=== PATIENT | male | born 1945 | race Caucasian/White ===

== ENCOUNTER 2018-09-02 11:50 | Inpatient (IN) | payer OTHER ==
[~2018-09-02] VITALS: Ht 177.8 cm; Wt 86.2 kg
--- NOTE | ~2018-09-02 | EKG ---
[address] [address] ELECTROCARDIOGRAM REPORT Name: YOU DUFF Room #: 460-P ADM IN M.R.#: [id number] ������������������ Admission: 09/02/18 ������������������ Attend Phys: Sam Kent MD Discharge: ������������������ Date of : 41 Report #: [id number] ����������������������������������������������������������������� [id number] THIS REPORT FOR: //name// 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: Luis A CASAS : 1945 Requested By: Arlet Mead Order Number: [id number] MD: Measurements Intervals [place] Rate: 115 P: SD: QRS: -28 QRSD: 138 T: 47 QT: 367 QTc: 508 Interpretive Statements Atrial fibrillation Right bundle branch block Compared to ECG 09/02/2018 21:56:28 Sinus rhythm no longer present Myocardial infarct finding no longer present [email or web address] ��������������������������������������������� ���������������������������������������� By: ��������������������������������������������� 1637 1637 Epiphany EpiphanyMD /EPI
[2018-09-02 12:25] LABS: HEMATOCRIT 32.8 % (42.0-52.0); HEMOGLOBIN 11.2 gm/dL (14.0-18.0); MCH 33.7 pg (26.0-34.0); PLATELET COUNT 220 thou/uL (150-400); RBC 3.32 mil/uL (4.50-6.00); RDW 14.2 % (10.5-14.5); WBC 5.6 thou/uL (4.0-11.0)
[2018-09-02 12:30] LABS: CALCIUM 8.8 mg/dL (8.5-10.1)
[2018-09-02 12:36] LABS: ALBUMIN 3.4 g/dL (3.4-5.0); TOTAL BILIRUBIN 1.6 mg/dL (<0.1-1.0); TOTAL PROTEIN 7.3 g/dL (6.4-8.2)
[2018-09-02 12:38] LABS: APTT 46.9 Seconds (24.5-32.8); INR 1.7; PROTIME 17.7 Seconds (9.3-11.4)
[2018-09-02] MEDS ORDERED: ZETIA10 MG PO (12:40)
[2018-09-02] MEDS ORDERED: CARDIZEM CD120 MG PO (12:40)
[2018-09-02] MEDS ORDERED: ASPIRIN325 PO (12:41)
[2018-09-02] MEDS ORDERED: MOBIC7.5 MG PO (12:41)
[2018-09-02] MEDS ORDERED: XARELTO20 MG PO (12:42)
[2018-09-02] MEDS ORDERED: LIPITOR80 MG PO (12:42)
[2018-09-02] MEDS ORDERED: TOPROL XL25 MG PO (12:43)
[2018-09-02 12:55] LABS: ABSOLUTE NEUTROPHILS 2.8 thou/uL (1.4-8.2); ATYPICAL LYMPHS 2 %; NUCLEATED RBCS 1 /100WBC
[2018-09-02 12:56] LABS: ANISOCYTOSIS SLIGHT; LARGE PLATELETS OCCASIONAL
[2018-09-02 13:02] LABS: URINE BILIRUBIN NEGATIVE (Negative); URINE BLOOD TRACE (Negative); URINE CLARITY CLEAR; URINE COLOR YELLOW; URINE GLUCOSE-RANDOM* NEGATIVE (Negative); URINE KETONES NEGATIVE (Negative); URINE LEUKOCYTES-REFLEX NEGATIVE (Negative); URINE NITRITE-REFLEX NEGATIVE (Negative); URINE PROTEIN (DIPSTICK) TRACE (Negative)
[2018-09-02] MEDS ORDERED: FLOMAX0.4 MG PO (13:14)
[2018-09-02 13:15] LABS: MAGNESIUM 1.3 mg/dL (1.8-2.4); TROPONIN-I 0.08 ng/mL (<0.06)
--- NOTE | 2018-09-02 14:07 | EKG ---
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: SUSANA : 1945 Requested By: Jose Guadalupe Martinez Order Number: [id number] MD: Carlos Duarte Measurements Intervals [place] Rate: 85 P: 59 NV: 183 QRS: -54 QRSD: 139 T: 49 QT: 423 QTc: 503 Interpretive Statements Sinus rhythm Atrial premature complex left atrial enlargement RBBB and LAFB Non specific st/t wave changes No previous ECG available for comparison Electronically Signed On 09-02-2018 14:06:55 CDT by Carlos Duarte [email or web address] ��������������������������������������������� <ELECTRONICALLY SIGNED> ���������������������������������������� By: Carlos Duarte MD ��������������������������������������������� 09/02/18 1406 1318 1318 Carlos Duarte MD /EPI
[2018-09-02 14:24] VITALS: BP 93/67
[2018-09-02 14:26] VITALS: BP 94/63
[2018-09-02 16:59] LABS: HEMATOCRIT 26.9 % (42.0-52.0); HEMOGLOBIN 9.3 gm/dL (14.0-18.0)
--- NOTE | 2018-09-02 17:58 | NUR ---
PATIENT ADMIT TO UNIT AT 1500. A/O X4. PLEASANT. DENIES PAIN. NO N/V. NO BM NOTED. BP ON THE LOW SIDE. NO DISDRESS NOTED. WILL KEEP MPNITOR.
[2018-09-02 19:40] VITALS: BP 86/62
[2018-09-02 21:15] VITALS: BP 82/57
[2018-09-02 23:20] VITALS: BP 74/59
[2018-09-02 23:40] VITALS: BP 97/75
[2018-09-03] VITALS (32 sets, daily range): BP systolic 72–92; BP diastolic 42–63
[2018-09-03 00:17] LABS: HEMOGLOBIN 7.9 gm/dL (14.0-18.0)
--- NOTE | 2018-09-03 02:39 | NUR ---
NOTED PT BLOOD PRESSURE 80/60'S AND 80/50'S. UPON INITIAL ASSESSMENTS PT C/O PAIN IN RIBS, LEFT SIDE, IN THE AXILLARY REGION. PT DID STATE THE PAIN WAS EXACERBATED SLIGHTLY WILL PALPATION TO THAT AREA. DENIED ANY CHEST PAIN OR SOA AT THAT TIME. AT APPROXIMATELY 2145 PT STATED THAT HE WAS HAVING PAIN IN BETWEEN HIS SHOULDER BLADES, 6/10 AND "SHARP." NOTED PAST TROPONIN VALUES .08/0.9. PT DENIES ANY LEFT SIDED CHEST PAIN. PT DID STATE THAT HE FEELS THAT SHARP PAIN IS COMING THROUGH HIS BACK MOVING TOWARD THE FRONT. NOTED BLOOD PRESSURE 80/50'S AT THAT TIME, SR PER TELE. NO OTHER SX REPORTED BY PT, DID REPORT SOA WITH OBSERVABLE INCREASED WOB (RR 24 AND LABORED). O2 SAT WAS 100% AT THAT TIME AND SOA RESOLVED QUICKLY. O2 AT 2L STARTED. LUNGS CTA THROUGHOUT. SPOKE WITH SAFETY DEPOSIT BOXES CUSTODIAN, ORDERS RECEIVED. NOTED SBP 74 AND PT STATING HE FELT HE NEEDED TO HAVE BM BUT WAS UNWILLING TO USE BEDPAN. SAT UP AT THE SIDE OF THE BED. STARTED DYNAMAP TO ASSESS ANY POSSIBLE BP CHANGE, PT STATED HE FELT SUDDENLY DIZZY AND SLUMPED INTO THE BED. IMMEDIATELY PLACED IN BED. PULSE WAS PALPABLE. STERNAL RUB DONE WHICH DID RESULT IN PT TAKING A GASPING BREATH AFTERWORDS X2. PT THEN QUICKLY BEGAN TO HAVE REGULAR RESPIRATIONS AND VERBALLY RESPOND TO STAFF. POST THIS EVENT, HGB WAS 7.9. DID RECEIVE ORDER TO TRANSFUSE ONE UNIT OF BLOOD. AWAIT LAB STAFF RESOLUTION OF REPORTED ANTIBODIES. PT DENYING ANY FURTHER SOA. RATING BACK (BETWEEN SHOULDER BLADES) PAIN 2/10. SBP POST EVENT 98, TROP 0.10. SAFETY DEPOSIT BOXES CUSTODIAN AWARE OF EKG RESULTS, CXR, LAB RESULTS AND BP.
[2018-09-03 02:46] LABS: HEMATOCRIT 22.2 % (42.0-52.0); HEMOGLOBIN 7.7 gm/dL (14.0-18.0); MCHC 34.8 g/dL (28.0-37.0); MCV 100.7 fL (80.0-100.0); PLATELET COUNT 160 thou/uL (150-400); RBC 2.21 mil/uL (4.50-6.00); RDW 14.2 % (10.5-14.5); WBC 5.8 thou/uL (4.0-11.0)
[2018-09-03 02:52] LABS: CALCIUM 7.7 mg/dL (8.5-10.1); CREATININE 0.8 mg/dL (0.7-1.3); MAGNESIUM 1.8 mg/dL (1.8-2.4); POTASSIUM 3.9 mmol/L (3.5-5.1)
[2018-09-03 04:31] LABS: ABSOLUTE NEUTROPHILS 3.5 thou/uL (1.4-8.2); MYELOCYTES 1 %
[2018-09-03 05:30] LABS: LARGE PLATELETS OCCASIONAL
[2018-09-03 10:34] LABS: HEMATOCRIT 23.6 % (42.0-52.0); HEMOGLOBIN 8.1 gm/dL (14.0-18.0)
--- NOTE | 2018-09-03 10:59 | EKG ---
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: gus roque RN : 1945 Requested By: Kathy Barboza Order Number: [id number] MD: Weston Sommer Measurements Intervals [place] Rate: 84 P: 10 DC: 183 QRS: -44 QRSD: 138 T: 52 QT: 411 QTc: 486 Interpretive Statements Sinus rhythm Right bundle branch block Anterior infarct, age indeterminate Baseline wander in lead(s) V6 Compared to ECG 09/02/2018 13:18:55 No significant change Electronically Signed On 09-03-2018 10:59:24 CDT by Weston Sommer [email or web address] ��������������������������������������������� <ELECTRONICALLY SIGNED> ���������������������������������������� By: Weston Sommer MD ��������������������������������������������� 09/03/18 1059 2156 215 Weston Sommer MD /[facility]
--- NOTE | 2018-09-03 13:00 | NUR ---
COMPLETED BLOOD TRANSFUSION THIS AM WITH NO NOTED REACTION. HE HAD EGD AND FROM PACU DR REQUESTED HE BE TRANSFERRED TO ICU. REPORT CALLED TO ICU. NOTIFIED OF TRANSFER.
--- NOTE | 2018-09-03 15:11 | NUR ---
SUMMARY: PATIENT IN ICU FROM RECOVERY ROOM, ALERT AND ORIENTED. CONTINUES TO BE HYPOTENSIVE BUT IS ASYMPTOMATIC. OTHER VITALS STABLE. PROTONIX GTT AND IV FLUIDS RESUMED. ABLE TO TOLERATE CLEAR LIQUIDS. VOIDING PER URINAL. WILL CONTINUE TO MONITOR CLOSELY FOR BLEEDING.
[2018-09-03 17:56] LABS: HEMATOCRIT 20.3 % (42.0-52.0)
[2018-09-04] VITALS (27 sets, daily range): BP systolic 72–117; BP diastolic 40–69
[2018-09-04 05:22] LABS: HEMOGLOBIN 6.9 gm/dL (14.0-18.0); MCV 98.3 fL (80.0-100.0); RBC 1.97 mil/uL (4.50-6.00)
[2018-09-04 05:23] LABS: MCH 34.9 pg (26.0-34.0); MCHC 35.5 g/dL (28.0-37.0); RDW 15.8 % (10.5-14.5)
[2018-09-04 05:35] LABS: HEMATOCRIT 19.4 % (42.0-52.0)
[2018-09-04 05:38] LABS: CALCIUM 7.6 mg/dL (8.5-10.1); CREATININE 0.8 mg/dL (0.7-1.3); POTASSIUM 3.9 mmol/L (3.5-5.1)
--- NOTE | 2018-09-04 06:38 | NUR ---
ASSUMED CARE @ 1900 09/03/18, PT ASSESSMENTS AND VSS COMPLETE PER ICU PROTOCOL. PT ALERT AND ORIENTED X 4, PT ABLE TO FOLLOW COMMANDS, NEURO INTACT. PT IN SR WITH PAC'S, PT SLIGHTLY HYPOTENSIVE DURING SHIFT, PT TACHY AT SOME POINTS BUT COMES BACK DOWN TO THE 90'S. PT SHOWS NO SIGNS OF BLEEDING. PT MORNING HEMATOCROT 19.4, STAN CALLED, NEW ORDERS RECIEVED. PT ON 2L OF , SATS IN THE HIGH 90'S. PT HAD NO STOOLS DURING THE SHIFT. PT USED URINAL DURING THE SHIFT GOP NOTED. FALL PRECAUTIONS IN PLACE. PLAN OF CARE-CONT TO MONITOR FOR BLEEDING.
--- NOTE | 2018-09-04 10:03 | P ---
[facility] [place] [address] PROCEDURE REPORT Name: YOU DUFF Room #: 243-P ADM IN M.R.#: [id number] Admission: 09/02/18 ������������������ Attend Phys: Sam Kent MD Discharge: ������������������ Date of : 41 Report #: [id number] THIS REPORT FOR: //name// CC: Reg Kent NP DATE OF SERVICE: 09/03/2018 PROCEDURE PERFORMED: Upper endoscopy with bleeding control. HISTORY OF PRESENT ILLNESS: The patient is a 73-year-old male who was admitted yesterday with melanotic stools and anemia. He has previous history of hypertension, coronary artery disease status post stent, AAA status post stent, history of atrial fibrillation. He was on Plavix, but recently switched to Xarelto on . His last dose of Plavix was on Wednesday. Colonoscopy approximately 11 years ago apparently had some polyps. Upper endoscopy has never been done. No previous history of GI bleed. The patient has been hypotensive basically since admission. His admit hemoglobin was 11.2. This dropped to 9.3 and then 7.7. He received 1 unit of packed cells this morning. His repeat hemoglobin is now 8.1. The patient had a total of 3 melanotic stools apparently since admission. He has been hypotensive overnight. He was getting more short of breath, feeling dizzy, and was placed on 2 liters nasal canula oxygen. I had a long discussion with the patient regarding his symptoms and would recommend proceeding with an upper endoscopy emergently at this time. He understands and agrees. DESCRIPTION OF PROCEDURE: The risks and benefits of the procedure were explained to the patient, those risks including but not limited to bleeding, perforation and the risk of sedation. He understood these risks and gave informed consent. The procedure was performed in the operating room under general anesthesia. Next, using a standard Olympus upper endoscope, the scope was placed in the patient's mouth and advanced under direct vision through the esophagus, stomach and into the second portion of the duodenum. The esophagus was normal throughout. The GE junction was normal. No evidence of varices or esophagitis. Upon entering the stomach, a fairly large clot was noted in the gastric fundus. A small amount of bright red blood was noted in this area as well. I advanced the scope initially through the gastric body and antrum. No obvious areas or lesions were noted. The pylorus was normal and patent. The duodenal bulb, first and second portion were all normal. There was no evidence of blood or ulcerations. I then brought the scope back up into the patient's stomach and I began sucking out old blood and clots. I was able to remove most of the clot at this time. At this point, I was able to visualize an actively bleeding area in the upper body close to the fundus. It did not appear to be an ulcer. It looks like this is likely an AVM, did not appear to be a [place] [address] [address] PROCEDURE REPORT Name: YOU DUFF Room #: 243-P [facility] IN M.R.#: [id number] Admission: 09/02/18 ������������������ Attend Phys: Sam Kent MD Discharge: ������������������ Date of : 41 Report #: [id number] lesion. I injected this area with 1 mL of epinephrine, still had continued bleeding; therefore, was treated with 7-Andorran bipolar cautery. No further bleeding was noted after cauterization. At this point, I was able to clear the rest of the remaining clot out of the fundus and evaluated the fundus. There were no other lesions noted in the fundus. No further bleeding was noted at this time. At this point, the scope was then withdrawn and the procedure terminated. The patient tolerated the procedure well. IMPRESSION: 1. 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 No further bleeding noted. 2. Otherwise, normal upper endoscopy. RECOMMENDATIONS: 1. Continue to monitor hemoglobin closely. 2. The patient has been hypotensive. Therefore, we will transfer the patient to the ICU after recovery. 3. Continue PPI drip. 4. We will add liquid Carafate at this time. 5. We will start clear liquids. 6. Continue to hold anticoagulation therapy. Thank you for allowing me to participate in his care. ��������������������������������������������� <ELECTRONICALLY SIGNED> ���������������������������������������� By: Al Sauceda MD ��������������������������������������������� 09/04/18 1003 1141 2122 Al Sauceda MD /nt
--- NOTE | 2018-09-04 15:54 | NUR ---
ASSUMED CARE OF PT AT 0700 THIS SHIFT. PT STATED THAT HE IS FEELING BETTER TODAY, JUST UNCOMFORTABLE AND STILL WEAK, HAS BEEN COOPERATIVE, DENIED ANY PAIN THIS SHIFT. PT GOT 1 UNIT OF RBC, NO ADVERSE REACTION NOTED. DIET WAS ADVANCED TO REGULAR THIS SHIFT, PT ATE ABOUT HALF OF THE TRAY. PT HAD 1 BLACK, STOOL THIS SHIFT. PT WAS SEEN BY GI, IS OK TO TRANSFER OUT OF ICU, REPORT CALLED IN TO [facility]. ASSESSMENTS ARE DOCUMENTED. PT HAS HAD VISITORS THIS SHIFT, EDUCATION WAS PROVIDED. PLAN OF CARE IS TO TRANSFER PT OUT OF ICU.
--- NOTE | 2018-09-04 19:37 | NUR ---
PT TRANSFERRED FROM ICU THIS AFTERNOON. PT A&OX4, PLEASANT AND COOPERATIVE. AT BEDSIDE. PT ARRIVED ON PROTONIX GTT AND NS IV FLUIDS. AFTER DINNER PT COMPLAINED OF SOA AND O2 SAT ON 3L DROPPED FROM 97% TO 91%. PHYSICIAN NOTIFIED AND IV FLUIDS STOPPED. CHEST XRAY ORDERED AND BREATHING TREATMENTS ORDERED. PHYSICIAN CALLED ABOUT XRAY RESULTS. AFTER BREATHING TREATMENT PT STATED HE WAS BREATHING MUCH BETTER AND NO LONGER SOA.
--- NOTE | 2018-09-05 03:05 | NUR ---
PT GIVEN LASIXS PER ORDER AND DUO NEBS PT WAS ABLE TO BE WEANED BACK TO 3L AND PT REPORTED NOT BEING SO SOA PT WAS ABLE TO SLEEP MOST OF THE NIGHT.
[2018-09-05 04:13] VITALS: BP 90/62
[2018-09-05 05:48] LABS: CALCIUM 8.2 mg/dL (8.5-10.1); CREATININE 0.8 mg/dL (0.7-1.3); POTASSIUM 3.5 mmol/L (3.5-5.1)
[2018-09-05 05:56] LABS: HEMATOCRIT 22.6 % (42.0-52.0); HEMOGLOBIN 7.8 gm/dL (14.0-18.0); MCH 33.6 pg (26.0-34.0); MCHC 34.6 g/dL (28.0-37.0); MCV 97.2 fL (80.0-100.0); RBC 2.33 mil/uL (4.50-6.00); RDW 16.6 % (10.5-14.5)
[2018-09-05 08:09] VITALS: BP 86/61
[2018-09-05 15:04] VITALS: BP 90/65
--- NOTE | 2018-09-05 15:04 | NUR ---
PT ADMITTED RELATED TO NAUSEA VOMINTING ABDOMINAL PAIN. CM REVIEWED CHART AND SPOKE WITH CARE TEAM. CM MET WITH PT, DTR, AND SIG OTHER AT BEDSIDE THIS DAY. PT IS A&O X4. CM ROLE INTRODUCED. PT INDICATED HE LIVES IN A HOUSE WITH HIS SIG OTHER WITH 2 STEPS TO ENTER AND NO STEPS INSIDE. PT INDICATED HE HAS A FWW HE CAN USE IF NEEDED UPON DC. THEY INDICATED THAT THEY HAD USED [facility] IN THE PAST AND THEY WOULD LIKE TO USE THEM AGAIN IS NEEDED UPON DC. PT IS CURRENTLY ON 4L OF O2 AND HADN'T USED O2 BISQUE TILE BURNER. HE ANTICIPATES RETURNING HOME ONCE MEDICALLY STABLE. CM TO FOLLOW INDICATED WITH DC PLANNING.
--- NOTE | 2018-09-05 18:30 | NUR ---
PT A&OX4, TACHYCARDIC, DOCTOR AWARE AND HAS PLACED ORDERS. PT HAS BEEN RESTING IN BED, NO SIGNS OF DISTRESS OR BLEEDING. PT C/O RIGHT FLANK PAIN EARLY AM AND MANAGED WITH TYLENOL. WILL CONTINUE TO MONITOR.
[2018-09-05 19:53] VITALS: BP 88/58
[2018-09-06] VITALS (7 sets, daily range): BP systolic 78–97; BP diastolic 54–68
--- NOTE | 2018-09-06 07:42 | NUR ---
PATIENT SLEPT MOST OF THE NIGHT AFTER TAKING NIGHT TIME MEDS. PATIENT ASKED FOR TYLENOL FOR BACK PAIN ONCE DURING THE SHIFT. PATIENT USED URINAL IN BED AND WAS ABLE TO TURN HIMSELF THROUGHOUT THE SHIFT. NO FURTHER BLEEDING CONCERN AT THIS TIME. PATIENT IS PROGRESSING TOWARDS DISCHARGE GOALS.
[2018-09-06 09:02] LABS: HEMATOCRIT 23.1 % (42.0-52.0); HEMOGLOBIN 7.9 gm/dL (14.0-18.0); MCH 33.4 pg (26.0-34.0); MCHC 34.2 g/dL (28.0-37.0); MCV 97.8 fL (80.0-100.0); PLATELET COUNT 169 thou/uL (150-400); RBC 2.36 mil/uL (4.50-6.00); RDW 16.7 % (10.5-14.5); WBC 4.7 thou/uL (4.0-11.0)
[2018-09-06 09:57] LABS: ABSOLUTE NEUTROPHILS 3.3 thou/uL (1.4-8.2)
[2018-09-06 09:58] LABS: ANISOCYTOSIS 1+; POLYCHROMASIA SLIGHT
--- NOTE | 2018-09-06 11:20 | 2DMMODE ---
[facility] [address] [place] [address] 2 D/M-MODE ECHOCARDIOGRAM Name: YOU DUFF Room #: 460-P [facility] IN .R.#: [id number] ������������� Admission: 09/02/18 ������������� Attend Phys: Sam Kent, Discharge: ��� ������������� ��� Date of : 41 Date of Service: 09/06/18 1119 �� Report #: [id number] �������� ��������������������������������������������[id number] THIS REPORT FOR: //name// APPROVED REPORT Study performed: 09/06/2018 10:04:15 EXAM: Comprehensive 2D, Doppler, and color-flow Echocardiogram Patient Location: Bedside Room #: 460 Status: routine BSA: 2.04 HR: 102 bpm BP: 81/54 mmHg Rhythm: Atrial Fibrillation Other Information Study Quality: Adequate Indications Atrial Fibrillation CAD Hypertension/HDD 2D Dimensions RVDd: 37.39 mm IVSd: 10.95 (7-11mm) LVOT Diam: 22.01 (18-24mm) LVDd: 56.33 mm PWd: 11.39 (7-11mm) Ascending Ao: 32.43 (22-36mm) LVDs: 38.17 (25-40mm) Aortic Root: 27.39 mm IVC: 24.00 mm Volumes Left Atrial Volume (Systole) Single Plane 4CH: 130.20 mL Single Plane 2CH: 95.39 mL LA ESV Index: 63.00 mL/m2 Aortic Valve AoV Peak Ben.: 3.35 m/s AO Peak Gr.: 45.25 mmHg LVOT Max P.61 mmHg AO Mean Gr.: 26.10 mmHg LVOT Mean P.60 mmHg AO V2 Mean: 2.36 m/s LVOT Max V: 1.07 m/s AO V2 VTI: 61.61 cm LVOT Mean V: 0.74 m/s PITO (VTI): 1.19 cm2 LVOT V1 VTI: 19.34 cm PITO Vmax: 1.21 cm[address] [facility] [address] [place] [address] 2 D/M-MODE ECHOCARDIOGRAM Name: YOU DUFF Room #: 460-P [facility] IN ..#: [id number] ������������� Admission: 09/02/18 ������������� Attend Phys: Sam Kent, Discharge: ��� ������������� ��� Date of : 41 Date of Service: 09/06/18 1119 �� Report #: [id number] �������� ��������������������������������������������[id number] SV (LVOT): 73.59 mL Pulmonary Valve PV Peak Ben.: 1.67 m/s PV Peak Gr.: 11.16 mmHg Tricuspid Valve TR Peak Ben.: 2.61 m/s TR Peak Gr.: 27.57 mmHg PA Pressure: 38.00 mmHg Left Ventricle The left ventricle is normal size. There is normal LV segmental wall motion. There is normal left ventricular wall thickness. The left ventricular systolic function is normal. The left ventricular ejection fraction is within the normal range. LVEF is 55-60%. This study is not technically sufficient to allow evaluation of the LV diastolic function due to atrial fibrillation. Right Ventricle The right ventricle is normal size. The right ventricular systolic function is normal. Atria Left atrium is dilated. Right atrium is dilated. Aortic Valve Aortic valve is calcified. Mild aortic regurgitation. Moderate aortic stenosis. Calculated aortic valve area is 1.3 cm2 with maximum pressure gradient of 45 mmHg and mean pressure gradient of 26 mmHg. Mitral Valve The mitral valve is mildly calcified. Mild mitral regurgitation. No evidence of mitral valve stenosis. Tricuspid Valve The tricuspid valve is normal in structure. There is mild tricuspid regurgitation. Estimated PAP 38 mmHg. There is mild pulmonary hypertension. Pulmonic Valve The pulmonary valve is normal in structure. There is no pulmonic valvular regurgitation. Great Vessels The aortic root is normal in size. IVC is dilated and collapses [facility] [address] [place] [address] 2 D/M-MODE ECHOCARDIOGRAM Name: YOU DUFF Room #: 460-P [facility] IN [facility]#: [id number] ������������� Admission: 09/02/18 ������������� Attend Phys: Sam Kent, Discharge: ��� ������������� ��� Date of : 41 Date of Service: 09/06/18 1119 �� Report #: [id number] �������� ��������������������������������������������[id number] <50% with inspiration. Pericardium There is no pericardial effusion. <Conclusion> The left ventricular systolic function is normal. There is normal LV segmental wall motion. LVEF 55-60%. Both atria are dilated. Aortic valve is calcified, moderately stenotic. Mild insufficiency Calculated aortic valve area is 1.3 cm2 with maximum pressure gradient of 45 mmHg and mean pressure gradient of 26 mmHg. The mitral valve is mildly calcified. Mild mitral regurgitation. There is mild tricuspid regurgitation. Estimated pulmonary arery presusre of 38 mmHg. There is no pericardial effusion. ��������������������������������������������� <ELECTRONICALLY SIGNED> ���������������������������������������� By: Stephan Silverio MD, [facility] ��������������������������������������������� 09/06/18 1119 111 1119 Stephan Silverio MD, FACC /INF
--- NOTE | 2018-09-06 15:05 | NUR ---
I have reviewed the documentation by JUAN PAUL from 09-06-18 to 09/06/18 and I concur with it. DAYANA CESAR
--- NOTE | 2018-09-06 17:03 | NUR ---
PT A&0X4, VITALS ARE BASELINE. PT HEART RHYTHM IN AFIB ASYMPTOMATIC. PT HAS BEEN UP IN CHAIR TODAY. NO PAIN. NEW IV PLACED IN RIGHT UPPER ARM. ECHO COMPLETED THIS AM. WILL CONTINUE TO MONITOR.
--- NOTE | 2018-09-06 17:39 | NUR ---
PATIENTS BLOOD PRESSURES LOW IN THE MORNING. DILTIAZEM DC'D PER CARDIOLOGY. PATIENT STARTED ON PO AMIODARONE. BLOOD PRESSURES BETTER IN THE AFTERNOON. NO COMPLAINTS OF PAIN. TITRATED DOWN TO 1L NC, NORMALLY ON RA AT HOME. RATES RUNNING IN THE 90'S. WORKING TOWARDS GOALS.
[2018-09-07 04:00] VITALS: BP 133/55
--- NOTE | 2018-09-07 04:03 | NUR ---
PT ALERT/ORIENTED X4, ON TELE, REMAINS AFIB WITH CONTROLLED HEART RATE, BED ALARM ON, VOIDS PER URINAL, ON 1 L PER NC, NO SOB NOTED, DENIES PAIN, NO BM NOTED THIS SHIFT, SCDS TO BLE, HOURLY ROUNDING, MONITORED.
[2018-09-07 07:32] VITALS: BP 92/76
[2018-09-07 13:52] VITALS: BP 95/66
[2018-09-07 14:50] VITALS: BP 91/65
--- NOTE | 2018-09-07 17:52 | NUR ---
PT A&OX4, VSS AND BASELINE, NO C/O PAIN. NO C/O OF SOA AND NO DISTRESS OBSERVES. PT SKIN COLOR APPROPRIATE FOR RACE. PT HAD XRAY AND BNP DRAWN TODAY. WILL CONTINUE TO MONITOR.
[2018-09-07 19:08] VITALS: BP 87/62
[2018-09-08 02:43] VITALS: BP 85/59
--- NOTE | 2018-09-08 03:22 | NUR ---
PT RESTING GOOD, DENIES PAIN, OXYGEN 1 L PER NC, VOIDING PER URINAL, ABLE TO TURN/REPOSITION SELF, SCDS TO BLE, DENIES PAIN, TOOK MEDS WITH NO ISSUES, CALL LIGHT WITHIN REACHED, CONTINUE WITH IV PROTONIX AND CARAFATE, UP WITH ASSIST, MONITORED.
[2018-09-08 06:00] LABS: HEMATOCRIT 22.1 % (42.0-52.0); HEMOGLOBIN 7.6 gm/dL (14.0-18.0)
[2018-09-08 08:33] VITALS: BP 91/62
--- NOTE | 2018-09-08 15:01 | NUR ---
PATIENT IS ALERT AND ORIENTED X 3-4, ABLE TO MAKE NEEDS KNOWN. PATIENT IS EATING MEALS AND DRINKING FLUID WELL. LUNGS CLEAR TO AUSCULTATION, BS+X4, ABD SOFT NON-TENDER TO TOUCH. PATIENT C/O RIGHT HIP PAIN THIS MORNING, TYLENOL 650MG GIVEN, WITH POSITIVE EFFECT. PATIENT IS ABLE TO FEED SLEF, AND COMPLETE ADL. NO FURTHER CONCERN NOTED AT THIS TIME, WILL CONTINUE TO MONITOR.
--- NOTE | 2018-09-08 16:42 | NUR ---
CARE TEAM INDICATED THAT PT IS PROGRESSING TOWARD GOAL OF DISCHARGING HOME. CM TO FOLLOW INDICATED WITH DC PLANNING.
[2018-09-08 19:42] VITALS: BP 86/56
[2018-09-08 19:46] VITALS: BP 150/51
[2018-09-09 03:04] VITALS: BP 79/57
[2018-09-09 03:05] VITALS: BP 125/54
[2018-09-09 05:17] LABS: DIRECT BILIRUBIN 0.2 mg/dL (<0.1-0.3); TOTAL BILIRUBIN 0.8 mg/dL (<0.1-1.0)
--- NOTE | 2018-09-09 07:36 | NUR ---
Assumed care at 1845. Pt resting in bed. No bm today. VSS. AOX4. No identified need at the moment. Will continue to monitor.
[2018-09-09 08:15] VITALS: BP 116/50
[2018-09-09 09:07] LABS: HEMATOCRIT 22.9 % (42.0-52.0); MCH 33.6 pg (26.0-34.0); MCHC 34.2 g/dL (28.0-37.0); MCV 98.3 fL (80.0-100.0); RBC 2.33 mil/uL (4.50-6.00); RDW 16.3 % (10.5-14.5); WBC 5.7 thou/uL (4.0-11.0)
[2018-09-09 09:11] LABS: HEMOGLOBIN 7.8 gm/dL (14.0-18.0)
--- NOTE | 2018-09-09 13:37 | NUR ---
PATIENT DOING WELL TODAY. NO FURTHER BLEEDING NOTED. UP WITH MINIMAL ASSIST TO CHAIR AND BATHROOM WITH USE OF WALKER. TOLERATING DIET WELL. HGB 7.8 TODAY. DENIES PAIN. SAT UP IN CHAIR FOR MEALS. WEENED OFF O2. HOPING TO GO HOME. AWAITING DISCHARGE ORDERS.
[2018-09-09 13:57] LABS: CALCIUM 8.4 mg/dL (8.5-10.1); CREATININE 1.2 mg/dL (0.7-1.3); POTASSIUM 3.3 mmol/L (3.5-5.1)
--- NOTE | 2018-09-09 14:05 | NUR ---
Nutrition: Pt admit with black stool and seen due to LOS. S/P cauterized gastric AVM. pt reports he is eating most of meals and his appetite has returned compared to earlier in hospital stay. Stable weights. Low risk.
[2018-09-09 15:00] VITALS: BP 83/68
[2018-09-09] MEDS ORDERED: PRADAXA150 MG PO (15:00)
[2018-09-09] MEDS ORDERED: PACERONE 200 M200 M1 PO (15:01)
[2018-09-09] MEDS ORDERED: CARAFATE 11 GM/10 M1 PO (15:03)
[2018-09-09] MEDS ORDERED: PROTONIX40 M1 PO (15:05)
[2018-09-09 16:25] VITALS: BP 83/68
== END 2018-09-09 19:05 | disposition home or self-care (01) | DRG 377 ==
LOC: ER 11:50 → EROBS 12:54 → 4W 12:54 → 3W 12:54 → ICU 09-03 12:17 → 4W 09-04 15:23
PROVIDERS: Emergency Medicine; Hospitalist; Internal Medicine; Internal Medicine Cardiovascular Disease; Internal Medicine Gastroenterology; Nurse Practitioner; Nurse Practitioner Acute Care; Nurse Practitioner Adult Health; Specialist; ADMIT Internal Medicine
PROC: 0D568ZZ Destruction of Stomach, Via Natural or Artificial Opening Endoscopic (ICD-10-PCS; principal; 2018-09-03)
PROC: 30233N1 Transfusion of Nonautologous Red Blood Cells into Peripheral Vein, Percutaneous Approach (ICD-10-PCS; principal; 2018-09-03)
PROC: 3E0G8GC Introduction of Other Therapeutic Substance into Upper GI, Via Natural or Artificial Opening Endoscopic (ICD-10-PCS; principal; 2018-09-03)
DX: K31.811 Angiodysplasia of stomach and duodenum with bleeding (principal); E43 Unspecified severe protein-calorie malnutrition; D62 Acute posthemorrhagic anemia; I48.0 Paroxysmal atrial fibrillation; E83.42 Hypomagnesemia; N40.0 Benign prostatic hyperplasia without lower urinary tract symptoms; I25.10 Atherosclerotic heart disease of native coronary artery without angina pectoris; K21.9 Gastro-esophageal reflux disease without esophagitis; I10 Essential (primary) hypertension; I73.9 Peripheral vascular disease, unspecified; E78.5 Hyperlipidemia, unspecified; I71.4 Abdominal aortic aneurysm, without rupture; I95.9 Hypotension, unspecified; I65.29 Occlusion and stenosis of unspecified carotid artery; M48.00 Spinal stenosis, site unspecified; K63.5 Polyp of colon; N20.9 Urinary calculus, unspecified; Z87.891 Personal history of nicotine dependence; Z79.01 Long term (current) use of anticoagulants; Z95.5 Presence of coronary angioplasty implant and graft; Z98.41 Cataract extraction status, right eye; Z82.49 Family history of ischemic heart disease and other diseases of the circulatory system; Z98.42 Cataract extraction status, left eye; Z79.899 Other long term (current) drug therapy
CPT/HCPCS: 10045; 10078; 10879; 62110; 62900; 70005

== ENCOUNTER 2018-09-17 16:03 | Inpatient (IN) | payer OTHER ==
[~2018-09-17] VITALS: Ht 177.8 cm; Wt 84.0 kg
--- NOTE | ~2018-09-17 | HC ---
[facility] [place] [address] CONSULTATION Name: YOU DUFF Room #: 464-P ADM IN M.R.#: [id number] Admission: 09/17/18 ������������������ Attend Phys: Sam Kent MD Discharge: ������������������ Date of : 41 Report #: [id number] THIS REPORT FOR: //name// CC: [facility] physician/PCP Sam Kent REASON FOR CONSULTATION: Acute congestive heart failure. HISTORY OF PRESENT ILLNESS: The patient is a 73-year-old who I recently saw in the hospital in August. He had recently been diagnosed with new onset atrial fibrillation by his primary care physician, started on Xarelto and then came in with a GI bleed and was found to have an AVM that was cauterized. He was subsequently started back on Pradaxa. In the hospital, he did convert to sinus rhythm on his own and at that time, he was started on oral amiodarone. He had an echocardiogram in the hospital showing an EF of 55-60% with aortic stenosis that was moderate in nature with a valve area 1.3 and a mean gradient of 26 mmHg. Also, has a history of hypertension, hyperlipidemia, coronary artery disease, status post stent, AAA repair and prior carotid endarterectomy. The patient presented back to the Emergency Room with several days of worsening exertional dyspnea. He denies any chest pain or chest tightness. He denies any PND or orthopnea. He denies presyncope or syncope. REVIEW OF SYSTEMS: A 12-point review of systems was performed, otherwise was within normal limits. PAST MEDICAL HISTORY: As reviewed above. SOCIAL HISTORY: Does not smoke. FAMILY HISTORY: Noncontributory. ALLERGIES: None. MEDICATIONS: Have been reviewed and he has been compliant with his Xarelto and his amiodarone therapy. Currently on tamsulosin, IV Lasix, Zetia, Lipitor, amio 400 daily. Sucralfate, pantoprazole, Zofran, Pradaxa 150 b.i.d. PHYSICAL EXAMINATION: VITAL SIGNS: Temperature is afebrile, pulse 81, respirations 14, blood pressure 125/60, sats are 96%. GENERAL: He is in no acute distress, alert and oriented x 3, lying flat in bed. HEENT: Sclerae are anicteric. Oropharynx is clear. NECK: Supple with no thyromegaly or carotid bruits. HEART: Regular rate and rhythm with a 2/6 murmur noted at the right upper sternal border. He has mildly elevated JVD. LUNGS: Clear to auscultation bilaterally with no wheezes or rhonchi. ABDOMEN: Soft, nontender, nondistended with no hepatosplenomegaly. [address] [address] CONSULTATION Name: YOU DUFF Room #: 464-P [facility] IN M.R.#: [id number] Admission: 09/17/18 ������������������ Attend Phys: Sam Kent MD Discharge: ������������������ Date of : 43 Report #: [id number] EXTREMITIES: There is no clubbing, cyanosis or edema. Cranial nerves 2-12 are intact. LABORATORY DATA: CT chest was normal. White count 6.3, hemoglobin 8.2, platelets 410. Chemistry: Sodium 137, potassium 3.6, BUN 11, creatinine 1.0. Troponin is 0.07, followed by 0.08. ProBNP is slightly elevated 1597. CT chest shows no PE. His chest x-ray shows a large cardiac silhouette, some small effusions bilaterally and some cephalization consistent with pulmonary edema. ASSESSMENT: 1. Acute diastolic heart failure. 2. Coronary artery disease. 3. Peripheral vascular disease. 4. Atrial fibrillation. 5. Hypertension. 6. Hyperlipidemia. 7. Moderate aortic stenosis. PLAN: In summary, the patient is a 73-year-old, presenting with worsening shortness of breath and appears that he is having acute on chronic diastolic heart failure. I have recommended that we continue to diurese the patient. We can start him on some metoprolol to improve his filling times. With regards to the causes of his diastolic heart failure, I recommend that we obtain an ischemic evaluation to rule out ischemia as a possible culprit for his heart failure exacerbation. We will continue to follow. ��������������������������������������������� ���������������������������������������� By: ��������������������������������������������� 1207 1541 Enrico Montgomery MD /nt
[~2018-09-17 16:03] MED LIST: ASPIRIN325 PO; CARAFATE 11 GM/10 M1 PO; CARDIZEM CD120 MG PO; FLOMAX0.4 MG PO; LIPITOR80 MG PO; MOBIC7.5 MG PO; PACERONE 200 M200 M1 PO; PRADAXA150 MG PO; PROTONIX40 M1 PO; TOPROL XL25 MG PO; XARELTO20 MG PO; ZETIA10 MG PO
[2018-09-17 16:07] VITALS: BP 129/62
[2018-09-17 18:12] LABS: ABSOLUTE NEUTROPHILS 4.5 thou/uL (1.4-8.2); BASOPHILS 0.7 % (0.0-2.0); EOSINOPHILS 4.4 % (0.0-3.0); HEMATOCRIT 24.1 % (42.0-52.0); HEMOGLOBIN 8.2 gm/dL (14.0-18.0); LYMPHOCYTES 12.5 % (24.0-44.0); MCH 31.8 pg (26.0-34.0); MCV 93.3 fL (80.0-100.0); MONOCYTES 10.6 % (1.0-8.0); PLATELET COUNT 410 thou/uL (150-400); POLYS 71.8 % (36.0-66.0); RBC 2.59 mil/uL (4.50-6.00); RDW 17.1 % (10.5-14.5); WBC 6.3 thou/uL (4.0-11.0)
[2018-09-17 18:17] LABS: CALCIUM 9.1 mg/dL (8.5-10.1); POTASSIUM 3.6 mmol/L (3.5-5.1)
[2018-09-17 18:25] LABS: TROPONIN-I 0.07 ng/mL (<0.06)
[2018-09-17 20:53] VITALS: BP 160/69
[2018-09-17 21:25] VITALS: BP 115/73
[2018-09-18 00:42] VITALS: BP 119/55
[2018-09-18] MEDS ORDERED: CARAFATE1 GM/10 ML PO (02:22)
[2018-09-18 03:36] VITALS: BP 125/60
--- NOTE | 2018-09-18 03:56 | NUR ---
NEW ADMIT FOR BILATERAL PLEURAL EFFUSION. NO SHORTNESS OF AIR OR DISTRESS NOTED THIS SHIFT. PATIENT AMBULATES TO THE BATHROOM WITH STEADY GAITS. PATIENT VOIDING WELL. PATIENT HAS NOT HAD ANY COUGH THIS SHIFT. PAIN CONTROLLED THIS SHIFT. SCD ON. FALL PRECAUTION IN PLACE. CALL LIGHT WITHIN REACH. PATIENT IN BED ASLEEP AT THIS TIME BREATHING REGULAR AND UNLABOURED.
[2018-09-18 08:08] VITALS: BP 134/68
--- NOTE | 2018-09-18 13:40 | EKG ---
[address] [address] ELECTROCARDIOGRAM REPORT Name: YOU DUFF Room #: 464-P ADM IN M.R.#: [id number] ������������������ Admission: 09/17/18 ������������������ Attend Phys: Sam Kent MD Discharge: ������������������ Date of : 43 Report #: [id number] ����������������������������������������������������������������� [id number] THIS REPORT FOR: //name// [facility] ED Test Date: 2018-09-17 Test Time: 16:12:31 Pat Name: YOU DUFF Department: Room: 464 Gender: M Systems Protection Technician: BALTAZAR : 1945 Requested By: Katiana Corley Order Number: [id number] MD: Stephan Silverio Measurements Intervals [place] Rate: 83 P: 74 TN: 204 QRS: -53 QRSD: 147 T: 43 QT: 429 QTc: 505 Interpretive Statements Sinus rhythm Atrial premature complex Anterior myocardial infarction, age indeterminate Right bundle branch block Compared to ECG 09/02/2018 21:56:28 Atrial premature complex(es) now present Electronically Signed On 09-18-2018 13:40:17 CDT by Stephan Silverio [email or web address] ��������������������������������������������� <ELECTRONICALLY SIGNED> ���������������������������������������� By: Stephan Silverio MD, [facility] ��������������������������������������������� 09/18/18 1340 1612 1612 Stephan Silverio MD, [facility] /EPI
[2018-09-18 14:02] VITALS: BP 117/55
[2018-09-18 19:24] VITALS: BP 138/54
--- NOTE | 2018-09-19 04:51 | NUR ---
PATIENT SLEPT PART OF THE NIGHT. PATIENT DID NOT REPORT DIFFICULTY BREATHING THIS SHIFT. PATIENT WAS AOX4 AND UP AD LOULOU. CARDIOLOGY CONSULT IN THE AM AND A STRESS TEST HAS BEEB SCHEDULED. PATIENT IS PROGRESSING TOWARDS DISCHARGE GOALS.
[2018-09-19 04:56] VITALS: BP 122/58
[2018-09-19 05:57] LABS: HEMATOCRIT 23.8 % (42.0-52.0); HEMOGLOBIN 8.1 gm/dL (14.0-18.0); MCH 31.4 pg (26.0-34.0); MCV 92.4 fL (80.0-100.0); RBC 2.58 mil/uL (4.50-6.00); RDW 17.4 % (10.5-14.5); WBC 4.6 thou/uL (4.0-11.0)
[2018-09-19 06:09] LABS: CALCIUM 8.8 mg/dL (8.5-10.1); MAGNESIUM 1.6 mg/dL (1.8-2.4); POTASSIUM 3.5 mmol/L (3.5-5.1)
[2018-09-19 08:00] VITALS: BP 118/57
[2018-09-19 15:00] VITALS: BP 127/72
--- NOTE | 2018-09-19 18:11 | NUR ---
PT ALERT AND ORIENTED TIMEDS FOUR. VSS, 97%RA, SR ON TELE. PT DENIES PAIN/SOA. PT UP TO RESTROOM WITH STANDBY ASSIST. PT TOLERATES MEDS AND MEALS. FAMILY AT BEDSIDE THIS AFTERNOON. PT SLOWLY PROGRESSING TOWRADS POC GOALS.
[2018-09-19 19:52] VITALS: BP 114/56
[2018-09-20 05:15] VITALS: BP 120/56
--- NOTE | 2018-09-20 05:33 | NUR ---
PATIENT SLEPT MOST OF THE NIGHT. PATIENT DID NOT COMPLAIN ABOUT ANY SOB DURING THE SHIFT. SLIGHT PAIN WAS REPORTED AND TREATED. CARDIAC STRESS TEST WAS COMPLETED PREVIOUS SHIFT. PATIENT IS PROGRESSING TOWARDS DC GOALS.
[2018-09-20 06:20] LABS: HEMATOCRIT 23.8 % (42.0-52.0); HEMOGLOBIN 8.2 gm/dL (14.0-18.0); MCH 31.6 pg (26.0-34.0); MCHC 34.3 g/dL (28.0-37.0); MCV 92.2 fL (80.0-100.0); RBC 2.58 mil/uL (4.50-6.00); RDW 17.3 % (10.5-14.5); WBC 4.2 thou/uL (4.0-11.0)
[2018-09-20 06:30] LABS: CALCIUM 8.7 mg/dL (8.5-10.1); MAGNESIUM 1.7 mg/dL (1.8-2.4); POTASSIUM 3.4 mmol/L (3.5-5.1)
--- NOTE | 2018-09-20 08:18 | NUR ---
PT IS A&0X4, SBA, ONLY CONCERN IS WONDERING ABOUT D/C, MENTIONS THAT 'EVERYONE IS SUPER', HAS TWO URINALS AT BEDSIDE FOR DIURESIS. LUNG SOUNDS CLEAR AND HEART IS REGULAR. ENCOURAGED PT TO USE CALL LIGHT FOR ANY NEEDS
[2018-09-20 09:55] VITALS: BP 128/65
--- NOTE | 2018-09-20 10:50 | NUR ---
INITIAL ASSESSMENT: SW reviewed chart. Pt was admitted from home due to bilateral pleural effusion. Pt had stress test completed yesterday. Anticipate pt will d/c home later today. SW met with pt at bedside. Introduced role of SW. Pt is alert/orientated x 4. Pt reports he lives at home with his s/o. Prior to admission, pt was independent with ADLs. Pt does have a walker to assist with ambulation. Pt has used [facility] in the past, and would use them again if needed. No hx of SNF/Rehab placement. Pt's PCP is Dr. Reg Benavidez. Plan is for pt to discharge home when medically stable. Pt's family is able to provide transportation home when discharged. No SW needs identified at this time, but is available to assist should needs arise.
[2018-09-20 15:26] VITALS: BP 116/51
[2018-09-20] MEDS ORDERED: LASIX 40 MG TAB40 M2 PO (17:20)
[2018-09-20] MEDS ORDERED: TOPROL XL25 MG PO (17:20)
[2018-09-20 17:49] VITALS: BP 116/51
== END 2018-09-20 18:47 | disposition home or self-care (01) | DRG 308 ==
LOC: ER 16:03 → EROBS 19:50 → 4W 19:50 → ENTRNSPT 09-20 18:18 → 4W 09-20 18:47
PROVIDERS: Emergency Medicine; ADMIT Internal Medicine
DX: I48.91 Unspecified atrial fibrillation (principal); I50.33 Acute on chronic diastolic (congestive) heart failure; I11.0 Hypertensive heart disease with heart failure; N40.0 Benign prostatic hyperplasia without lower urinary tract symptoms; I25.10 Atherosclerotic heart disease of native coronary artery without angina pectoris; I73.9 Peripheral vascular disease, unspecified; I35.0 Nonrheumatic aortic (valve) stenosis; D64.9 Anemia, unspecified; K21.9 Gastro-esophageal reflux disease without esophagitis; H91.90 Unspecified hearing loss, unspecified ear; E87.6 Hypokalemia; E83.42 Hypomagnesemia; J44.9 Chronic obstructive pulmonary disease, unspecified; E78.5 Hyperlipidemia, unspecified; Z98.42 Cataract extraction status, left eye; Z98.41 Cataract extraction status, right eye; Z87.891 Personal history of nicotine dependence; Z95.5 Presence of coronary angioplasty implant and graft; Z79.899 Other long term (current) drug therapy; Z82.49 Family history of ischemic heart disease and other diseases of the circulatory system
CPT/HCPCS: 10045

== ENCOUNTER → 2018-09-26 | Outpatient (CLI) | payer OTHER ==
[~2018-09-26] MED LIST changes: +CARAFATE1 GM/10 ML PO; +LASIX 40 MG TAB40 M2 PO
== END ==
LOC: ULTRA 07:56
DX: I65.22 Occlusion and stenosis of left carotid artery (principal); I25.10 Atherosclerotic heart disease of native coronary artery without angina pectoris; I73.9 Peripheral vascular disease, unspecified; I48.91 Unspecified atrial fibrillation

== ENCOUNTER 2018-10-31 15:31 | Inpatient (IN) | payer OTHER ==
[~2018-10-31] VITALS: Ht 177.8 cm; Wt 80.2 kg
[2018-10-31 15:32] VITALS: BP 139/60
[2018-10-31] MEDS ORDERED: ZANTAC 150MG T150 MG PO (15:36)
[2018-10-31] MEDS ORDERED: PACERONE 200 M200 M1 PO (15:38)
[2018-10-31 17:41] LABS: HEMATOCRIT 32.6 % (42.0-52.0); HEMOGLOBIN 10.9 gm/dL (14.0-18.0); MCH 32.5 pg (26.0-34.0); MCHC 33.6 g/dL (28.0-37.0); MCV 96.8 fL (80.0-100.0); PLATELET COUNT 247 thou/uL (150-400); RBC 3.36 mil/uL (4.50-6.00); RDW 20.4 % (10.5-14.5); WBC 4.4 thou/uL (4.0-11.0)
[2018-10-31 17:45] LABS: CALCIUM 9.4 mg/dL (8.5-10.1); CREATININE 1.2 mg/dL (0.7-1.3); POTASSIUM 3.6 mmol/L (3.5-5.1)
[2018-10-31 17:51] LABS: ALBUMIN 3.6 g/dL (3.4-5.0); DIRECT BILIRUBIN 0.3 mg/dL (<0.1-0.3); TOTAL BILIRUBIN 1.5 mg/dL (<0.1-1.0); TOTAL PROTEIN 8.1 g/dL (6.4-8.2)
[2018-10-31 18:15] LABS: ABSOLUTE NEUTROPHILS 3.3 thou/uL (1.4-8.2); ANISOCYTOSIS 2+; POLYCHROMASIA OCCASIONAL
[2018-10-31 21:02] VITALS: BP 108/75
[2018-10-31 23:11] VITALS: BP 94/65
[2018-10-31 23:19] VITALS: BP 93/64
[2018-10-31 23:20] VITALS: BP 85/60
[2018-10-31 23:23] LABS: HEMATOCRIT 29.6 % (42.0-52.0)
[2018-11-01] VITALS (8 sets, daily range): BP systolic 86–147; BP diastolic 55–72
--- NOTE | 2018-11-01 03:39 | NUR ---
PATIENT ARRIVED ON UNIT AT 2114 VIA W/C ACCOMPANIED BY SIGNIFICANT OTHER AND ED PERSONEL. PATIENT ALERT AND ORIENTED X4. IV IN LAC. UP TO BATHROOM WITH SBA, USES URINAL. SLEPT SOME THIS SHIFT. DENIES PAIN.
[2018-11-01 05:16] LABS: HEMATOCRIT 29.5 % (42.0-52.0)
[2018-11-01 11:01] LABS: HEMATOCRIT 31.3 % (42.0-52.0); HEMOGLOBIN 10.6 gm/dL (14.0-18.0)
--- NOTE | 2018-11-01 15:57 | NUR ---
INITIAL ASSESSMENT: Pt evaluated for d/c planning needs. Reviewed chart. Pt was hospitalized at [facility] in September and returned home on d/c. Pt lives at home with SO and was independent with ADL's prior to admission. Pt has walker. Pt has had [facility] in the past. Pt plans on returning home on d/c from hospital. Will remain available to assist as needed.
[2018-11-01 17:03] LABS: HEMATOCRIT 35.5 % (42.0-52.0); HEMOGLOBIN 11.7 gm/dL (14.0-18.0)
--- NOTE | 2018-11-01 19:51 | NUR ---
ASSUMED CARE OF PATIENT AT 0715, PATIENT ALERT AND ORIENTED X 4. PATIENT UP WITH ASSIST X1 DUE TO LIGHTHEADNESS OR DIZZINESS, NO DIZZINESS THIS SHIFT. PATIENT DENIES PAIN THIS SHIFT, AND NO C/O NAUSEA OR VOMITING THIS SHIFT. PATIENT WAS NPO THIS AM, ONLY MEDS WIHT A SIP OF WATER DUE TO PROCEDURE DONE TODAY/EGD. PATIENT STARTED CLEAR LIQUIDS AFTER PROCEDURE THIS AFTERNOON. PATIENT WILL BE NPO AFTER MIDNIGHT FOR COLONOSCOPY TOMORROW. PATIENT STARTED BOWEL PREP AT 1900. PTIENT VOIDS PER URINAL, AND HAD A LARGE LOOSE STOOL THIS AFTERNOON. PATIENT HAS LEFT AC IV IN PLACE, FLUSHED WITH NS AND REMAINS PATENT. WILL CONTINUE TO MONITOR.
[2018-11-02 04:36] VITALS: BP 113/39
[2018-11-02 05:36] LABS: HEMATOCRIT 28.8 % (42.0-52.0); HEMOGLOBIN 9.8 gm/dL (14.0-18.0)
--- NOTE | 2018-11-02 05:59 | NUR ---
PT. ALERT & OREINTED UP WITH ASSIST X1 TO BATHROOM. STATED NAUSETED DURING SHIFT AND CLEAR EMISIS NOTED. PRN ZOFRAN GIVEN AND PT WAS ABLE TO CONTINUE WITH GOLYTELY FOR BOWEL PREP. ON CLEAR LIQUIDS AND WILL BE NPO THIS MORINING @0700 FOR COLONOSCOPY. PT HAD ABOUT 4 LOOSE STOOLS AND WILL CONTINUE TO MONITUE.
[2018-11-02 09:28] VITALS: BP 104/73
[2018-11-02 12:46] LABS: % SATURATION 15 % (20-39); IRON 41 ug/dL (65-175); TIBC 271 ug/dL (250-450)
[2018-11-02 13:14] LABS: FOLIC ACID 15.2 ng/mL (8.6-58.9)
[2018-11-02] MEDS ORDERED: IRON325 PO (13:24)
[2018-11-02] MEDS ORDERED: B-12500 MCG PO (13:26)
[2018-11-02] MEDS ORDERED: PROTONIX40 M1 PO (13:28)
[2018-11-02 14:17] VITALS: BP 125/81
--- NOTE | 2018-11-02 16:06 | PATH ---
[facility] [place] [address] PATHOLOGY RPT PROCEDURE Name: ALEX DUFF Room #: 421-P ADM IN M.R.#: [id number] ������������������ Admission: 10/31/18 ������������������ Date of : 43 Discharge: Report #: [id number] Path Case #: [id number] [facility] Accession Number: [id number] . 01 Material submitted: . stomach - BX OF GASTRIC TO R/O H. PYLORI, GASTRITIS . 01 Clinical history: . Pre-OP DX: Black stools, please refer to requisition for additional information Post-OP DX: Diverticulosis of small intestines . 02 Diagnosis: Gastric mucosa, gastritis, rule out H. pylori, endoscopic biopsy: - Mild reactive gastropathy. - Negative for intestinal metaplasia or atrophy. - Negative for Helicobacter pylori (properly controlled immunohistochemical stain performed). (IUV:pit 11/02/2018) QTP/11/02/2018 . 02 Electronically signed: . Ethel Jha MD, Pathologist NPI- [id number] . 01 Gross description: . Received in formalin labeled "Jerry Alex, BX of gastric, rule out H. pylori," are 5 segments of slater soft tissue measuring 1.3 x 0.9 x 0.2 cm in aggregate dimensions and ranging from 0.4 to 0.5 cm in maximum dimension. The specimen is submitted entirely in cassette A1. (TSD; 11/01/2018) TOB/TOB . 02 Pathologist provided ICD-10: K31.9 . 02 CPT . 160974, R76875 Specimen Comment: A courtesy copy of this report has been sent to Specimen Comment: [phone], , . Specimen Comment: Report sent to ,DR CARTER / DR KOTHARI Performed at: [address], [place], [place] [address] MD Nino Edmonds MD Phone: [phone] Performed at: [address] [address] PATHOLOGY RPT PROCEDURE Name: ALEX DUFF Room #: 421-P [facility] IN M.R.#: [id number] ������������������ Admission: 10/31/18 ������������������ Date of : 43 Discharge: Report #: [id number] Path Case #: [id number] [address] [place], [place] [id number] MD Ethel Jha MD Phone: [phone]
[2018-11-02 17:05] VITALS: BP 125/55
[2018-11-02 17:30] VITALS: BP 125/55
[2018-11-02 17:46] VITALS: BP 125/55
--- NOTE | 2018-11-02 18:10 | NUR ---
DC ORDERS RECEIVED, COLONOSCOPY COMPLETED TODAY, PT WILL FOLLOW UP WITH GI ON A OUT PATIENT BASIS. IV REMOVED FROM L AC DC INSTRUCCTIONS, F/U APPOINT. AND SCRPTS REVIEWED WITH PT. VOLUNTEER CALLED FOR W/C.
--- NOTE | 2018-11-03 11:52 | P ---
[facility] [place] [address] PROCEDURE REPORT Name: YOU DUFF Room #: 421-P [facility] IN M.R.#: [id number] Admission: 10/31/18 ������������������ Attend Phys: Vamsi Matias MD Discharge: 11/02/18 ������������������ Date of : 43 Report #: [id number] THIS REPORT FOR: //name// CC: Reg Matias INPATIENT UPPER ENDOSCOPY REPORT BRIEF HISTORY: The patient is a 73-year-old male who presents with melanotic stool and drop in hemoglobin. He had been on Pradaxa due to atrial fibrillation. It is noteworthy about a month or so ago, he had a GI bleed, was found to have a bleeding AVM in the body of the stomach, which was treated by Dr. Sauceda at the time of upper endoscopy. PREOPERATIVE DIAGNOSIS: Recurrent gastrointestinal bleeding. POSTOPERATIVE DIAGNOSES: 1. Moderate diffuse gastritis. 2. Diverticula x 2 of the duodenum. MEDICATIONS: Deep sedation with propofol per anesthesia. SPECIMEN: Biopsy of gastritis. ESTIMATED BLOOD LOSS: 3 mL. PROCEDURE: EGD with biopsy. FINDINGS: Prior to propofol sedation, procedure of upper endoscopy discussed with the patient as well potential risks and its complications. He indicates he understands and desires to proceed. DESCRIPTION OF PROCEDURE: With the patient in left lateral decubitus position, the Olympus video endoscope was inserted in the cervical esophagus under direct vision without difficulty. Examination of this organ through its entire length revealed normal esophageal mucosa down to the squamocolumnar junction. There is no evidence of blood. There is no evidence of esophagitis, hiatus hernia or King mucosa. The scope was then advanced in the stomach, which was examined on end view as well as retroflexed view. No blood was seen in the stomach on this examination. Vascular ectasias were not seen. There were no ulcers or erosions. There was a diffuse erythematous gastritis with erythema throughout the stomach and body. Again, a bleeding site was not seen. Upon retroflexion, no mass lesions were seen. The pylorus was normal. Duodenal bulb was normal. The postbulbar duodenal sweep down in the third portion was normal with the exception of 2 duodenal diverticula that were seen. There is no evidence of [facility] [address] [place] [address] PROCEDURE REPORT Name: YOU DUFF Room #: 421-P DIS IN M.R.#: [id number] Admission: 10/31/18 ������������������ Attend Phys: Vamsi Matias MD Discharge: 11/02/18 ������������������ Date of : 43 Report #: [id number] bleeding. At that point, the scope was slowly withdrawn and careful circumferential views confirmed the above findings. The patient tolerated the procedure well. DISPOSITION: The patient with melanotic stools, drop in hemoglobin, orthostatic complaints. History of previous GI bleeding noted. An AVM was not seen today. It is possible he could have a vascular lesion such as AVM or Dieulafoy in the stomach, which was not visible today. However, due to his history, we will proceed with colonoscopy tomorrow for further evaluation of potential bleeding site. ��������������������������������������������� <ELECTRONICALLY SIGNED> ���������������������������������������� By: Jhonathan Hannah MD ��������������������������������������������� 11/03/18 1152 122 50 Jhonathan Hannah MD /nt
== END 2018-11-02 18:01 | disposition home or self-care (01) | DRG 379 ==
LOC: ER 15:31 → 4E 20:09 → EROBS 20:09 → 4E 21:04
PROVIDERS: Emergency Medicine; Internal Medicine Gastroenterology; Nurse Practitioner Acute Care; ADMIT Internal Medicine
PROC: 0DB68ZX Excision of Stomach, Via Natural or Artificial Opening Endoscopic, Diagnostic (ICD-10-PCS; principal; 2018-10-31)
PROC: 0DJD8ZZ Inspection of Lower Intestinal Tract, Via Natural or Artificial Opening Endoscopic (ICD-10-PCS; 2018-11-02)
DX: K62.5 Hemorrhage of anus and rectum (principal); K57.11 Diverticulosis of small intestine without perforation or abscess with bleeding; K29.71 Gastritis, unspecified, with bleeding; N40.0 Benign prostatic hyperplasia without lower urinary tract symptoms; I25.10 Atherosclerotic heart disease of native coronary artery without angina pectoris; K21.9 Gastro-esophageal reflux disease without esophagitis; I48.0 Paroxysmal atrial fibrillation; I95.9 Hypotension, unspecified; I73.9 Peripheral vascular disease, unspecified; D50.9 Iron deficiency anemia, unspecified; E53.8 Deficiency of other specified B group vitamins; I10 Essential (primary) hypertension; E78.5 Hyperlipidemia, unspecified; M46.82 Other specified inflammatory spondylopathies, cervical region; Z95.5 Presence of coronary angioplasty implant and graft; Z98.49 Cataract extraction status, unspecified eye; Z82.49 Family history of ischemic heart disease and other diseases of the circulatory system; Z79.899 Other long term (current) drug therapy; Z88.8 Allergy status to other drugs, medicaments and biological substances; Z87.19 Personal history of other diseases of the digestive system; Z87.442 Personal history of urinary calculi; Z86.010 Personal history of colon polyps; Z87.891 Personal history of nicotine dependence; D64.9 Anemia, unspecified
CPT/HCPCS: 10084; 62110; 62900

== ENCOUNTER → 2018-12-02 | Outpatient (CLI) | payer OTHER ==
[~2018-12-02] MED LIST changes: +B-12500 MCG PO; +IRON325 PO; +ZANTAC 150MG T150 MG PO
--- NOTE | 2018-12-12 11:47 | P ---
[facility] [place] [address] PROCEDURE REPORT Name: YOU DUFF Room #: [facility].#: [id number] Admission: 12/02/18 ������������������ Attend Phys: Jhonathan Hannah MD Discharge: ������������������ Date of : 43 Report #: [id number] THIS REPORT FOR: //name// CC: Reg Hannah SMALL BOWEL CAPSULE REPORT BRIEF HISTORY: The patient is a 73-year-old male who was recently admitted to [facility] with marked anemia requiring transfusion. This was a second recent admission. He had an AVM treated in the stomach earlier this year and colonoscopy on this visit was nondiagnostic. PREOPERATIVE DIAGNOSIS: Gastrointestinal bleed requiring transfusion. POSTOPERATIVE DIAGNOSIS: Few very small scattered ulcerations in distal jejunum and ileum without evidence of bleeding. MEDICATIONS: None. SPECIMEN: None. ESTIMATED BLOOD LOSS: None. PROCEDURE: M2 capsule study. FINDINGS: The patient presented to GI lab and swallowed the capsule and was fitted with the appropriate monitoring devices. DESCRIPTION OF PROCEDURE: The capsule images reviewed. There is no evidence of bleeding on this examination. The small bowel mucosa was generally normal with exception of occasional small scattered and rare lesion and 1-2 very tiny punctate ulcerations, which were nonbleeding in the distal ileum and jejunum. There was no evidence of strictures or masses. Etiology of these lesions are not entirely clear. Inflammatory bowel disease would be one consideration and use of nonsteroidals would be another. DISPOSITION: We will obtain a followup CBC. We will also have the patient return to the office for followup for further discussion and determine whether or not further studies are needed, especially to consider inflammatory bowel disease. ��������������������������������������������� <ELECTRONICALLY SIGNED> ���������������������������������������� By: Jhonathan Hannah MD ��������������������������������������������� 12/12/18 1147 1509 0810 Jhonathan Hannah MD /nt
== END | disposition home or self-care (01) ==
LOC: GI 06:29
DX: K63.3 Ulcer of intestine (principal); D64.9 Anemia, unspecified; I48.91 Unspecified atrial fibrillation; I50.9 Heart failure, unspecified; I73.9 Peripheral vascular disease, unspecified; Z79.01 Long term (current) use of anticoagulants; Z98.890 Other specified postprocedural states; Z79.899 Other long term (current) drug therapy; Z88.8 Allergy status to other drugs, medicaments and biological substances

== ENCOUNTER → 2019-01-20 | Outpatient (CLI) | payer OTHER ==
[~2019-01-20] VITALS: Ht 177.8 cm; Wt 80.7 kg
[~2019-01-20] MED LIST changes: +ELIQUIS5 MG PO
== END | disposition home or self-care (01) ==
LOC: GI 08:37
DX: K29.70 Gastritis, unspecified, without bleeding (principal); K31.819 Angiodysplasia of stomach and duodenum without bleeding; I11.0 Hypertensive heart disease with heart failure; I50.9 Heart failure, unspecified; I25.10 Atherosclerotic heart disease of native coronary artery without angina pectoris; I25.2 Old myocardial infarction; N40.0 Benign prostatic hyperplasia without lower urinary tract symptoms; I73.9 Peripheral vascular disease, unspecified; E78.5 Hyperlipidemia, unspecified; I48.91 Unspecified atrial fibrillation; K21.9 Gastro-esophageal reflux disease without esophagitis; D64.9 Anemia, unspecified; Z79.01 Long term (current) use of anticoagulants; Z79.899 Other long term (current) drug therapy; Z98.890 Other specified postprocedural states; Z98.42 Cataract extraction status, left eye; Z98.41 Cataract extraction status, right eye; Z88.8 Allergy status to other drugs, medicaments and biological substances
CPT/HCPCS: 62110; 62900

== ENCOUNTER 2019-01-31 15:35 | Inpatient (IN) | payer OTHER ==
[~2019-01-31] VITALS: Ht 177.8 cm; Wt 82.1 kg
--- NOTE | ~2019-01-31 | P ---
[facility] [place] [address] PROCEDURE REPORT Name: YOU DUFF Room #: 351-P ADM IN M.R.#: [id number] Admission: 01/31/19 Attend Phys: John Sim MD Discharge: Date of : 41 Report #: [id number] THIS REPORT FOR: //name// CC: Reg Sim MD DATE OF SERVICE: 02/03/2019 PROCEDURE PERFORMED: Colonoscopy with biopsy. HISTORY OF PRESENT ILLNESS: The patient is a 73-year-old male with multiple medical problems who came in with right-sided flank pain and back pain. He has had a previous history of anemia and GI bleeds. He has undergone multiple endoscopies in the past. CT scan of the abdomen and pelvis on this admission showing moderate thickening involving the ascending colon, mild thickening over the hepatic flexure and transverse colon. The patient denies any obvious bright red blood per rectum or melena. He does report some loose stools over the last few days as well as abdominal bloating. Hemoglobin on admission was 8.9. He had an upper endoscopy with Dr. Hannah last month in which nonbleeding AVMs were noted. These were all cauterized. Plan is for colonoscopy today. DESCRIPTION OF PROCEDURE: The risks and benefits of the procedure were explained to the patient, those risks including but not limited to bleeding, perforation, the risk of sedation. He understood these risks and gave informed consent. Sedation was given using propofol per anesthesia. Next, a digital rectal exam was initially performed, which was normal. Next, using a standard Olympus colonoscope, the scope was placed in the patient's anus and advanced under direct vision to the cecum. The overall prep was good. The cecum and ileocecal valve were normal. No evidence of colitis was noted throughout the exam today. I did obtain random biopsies in the cecum. I also obtained random biopsies in the ascending colon. Again, there was no obvious colitis or inflammation noted. The terminal ileum was also intubated, which was normal. The transverse and descending colon were normal. A few scattered diverticula were noted in the sigmoid colon, no evidence of inflammation, otherwise normal. The rectal mucosa was normal. On retroflexion, small nonbleeding internal hemorrhoids were noted. The scope was then withdrawn and the procedure terminated. The patient tolerated the procedure well. IMPRESSION: 1. Sigmoid diverticulosis. 2. Small internal hemorrhoids. 3. Otherwise, normal colonoscopy. No evidence of obvious colitis noted in the [address] [address] PROCEDURE REPORT Name: YOU DUFF Room #: 351-P [facility] IN ..#: [id number] Admission: 01/31/19 Attend Phys: John Sim MD Discharge: Date of : 43 Report #: [id number] right colon today. Random biopsies were obtained, both in the cecum and in the ascending colon due to recent CT showing possible thickening in this area. RECOMMENDATIONS: 1. Await biopsy results. 2. 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 This was reviewed by Dr. Varma, it is thought to be chronic in nature. The patient is to be followed by Dr. Acosta as an outpatient in the near future regarding this issue. Thank you for allowing me to participate in his care. By: 1055 19 Al Sauceda MD /nt
[2019-01-31 15:36] VITALS: BP 126/59
--- NOTE | 2019-01-31 15:45 | NUR ---
TRIED TO GET URINE AT TRIAGE UNABLE TO VOID
[2019-01-31 16:49] LABS: HEMATOCRIT 27.5 % (42.0-52.0); HEMOGLOBIN 9.2 gm/dL (14.0-18.0); MCH 32.2 pg (26.0-34.0); MCHC 33.6 g/dL (28.0-37.0); MCV 95.7 fL (80.0-100.0); PLATELET COUNT 269 thou/uL (150-400); RBC 2.87 mil/uL (4.50-6.00); RDW 17.4 % (10.5-14.5); WBC 4.7 thou/uL (4.0-11.0)
[2019-01-31 16:52] LABS: CALCIUM 8.4 mg/dL (8.5-10.1); CREATININE 1.1 mg/dL (0.7-1.3); POTASSIUM 3.2 mmol/L (3.5-5.1)
[2019-01-31 16:58] LABS: ALBUMIN 3.2 g/dL (3.4-5.0); TOTAL BILIRUBIN 1.6 mg/dL (<0.1-1.0); TOTAL PROTEIN 7.3 g/dL (6.4-8.2)
[2019-01-31 17:19] LABS: ABSOLUTE NEUTROPHILS 3.4 thou/uL (1.4-8.2)
[2019-01-31 17:20] LABS: ANISOCYTOSIS 1+
[2019-01-31 22:07] VITALS: BP 98/62
--- NOTE | 2019-02-01 00:54 | NUR ---
PT ADMITTED, SIGNIFICANT OTHER WITH HIM, ADMISSION HISTORY OBTAINED, PT ALERT/ORIENTED X4, IVF AND ANTBIOTICS FLOOR ORDERS STARTED, PER PHARMACY START WITH FLOOR ORDERS OF CIPRO AND IGNORE THE STAT ED ORDER SINCE IT WAS AN ED ORDER. PAIN CONTROLED BY MORPHINE IV, HAVING NAUSEA WITH NO EMESIS, ZOFRAN GIVEN, BASIN CLOSE BY, COOL WASH RUG TO FOREHEAD, ABLE TO TURN/REPOSITION SELF, SCDS TO BLE, CLEAR LIQUID DIET, MONITORED.
[2019-02-01 05:30] VITALS: BP 104/79
[2019-02-01 05:41] VITALS: BP 104/79
--- NOTE | 2019-02-01 05:44 | NUR ---
UNABLE TO VOID, ST CATH DONE X1, DRAINED 600 ML. URINE SPECIMEN SENT TO LAB.
[2019-02-01] MEDS ORDERED: METOPROLOL SUCC25 M1 PO (05:49)
[2019-02-01 05:59] LABS: HEMATOCRIT 26.5 % (42.0-52.0); HEMOGLOBIN 8.9 gm/dL (14.0-18.0); MCH 32.6 pg (26.0-34.0); MCHC 33.5 g/dL (28.0-37.0); MCV 97.4 fL (80.0-100.0); RBC 2.72 mil/uL (4.50-6.00); RDW 17.4 % (10.5-14.5); WBC 5.4 thou/uL (4.0-11.0)
[2019-02-01 06:23] LABS: CALCIUM 8.5 mg/dL (8.5-10.1); CREATININE 1.2 mg/dL (0.7-1.3); POTASSIUM 3.3 mmol/L (3.5-5.1)
--- NOTE | 2019-02-01 06:36 | NUR ---
CONSULT TO GI, DR ELIZABETH WAS CALLED TO ANSWERING SERVICE.
[2019-02-01 06:41] LABS: URINE BILIRUBIN NEGATIVE (Negative); URINE BLOOD NEGATIVE (Negative); URINE CLARITY CLEAR; URINE COLOR YELLOW; URINE GLUCOSE-RANDOM* NEGATIVE (Negative); URINE KETONES NEGATIVE (Negative); URINE LEUKOCYTES NEGATIVE (Negative); URINE NITRITE NEGATIVE (Negative); URINE PROTEIN (DIPSTICK) TRACE (Negative); URINE SPECIFIC GRAVITY <= 1.005 (1.005-1.035); URINE UROBILINOGEN 0.2 E.U./dl (0.2-1.0)
[2019-02-01 07:39] VITALS: BP 93/56
--- NOTE | 2019-02-01 12:39 | NUR ---
INITIAL ASSESSMENT: SW reviewed chart and spoke with nursing and attending physician. Pt was admitted from home due to colitis. SW met with pt and s/o, at bedside. Introduced role of SW. Pt is alert/orientated x 4. Pt and s/o reside in a two-level home. They rent out the second level. Pt and s/o live on the ground level. 2 steps to enter the home. Prior to admission, pt was independent with ADLs. Pt does have a walker at home, but does not use it. Pt's PCP is Dr. Reg Benavidez. Pt has used [facility] in the past, and would be open to using them again if needed. Pt's s/o has been to [facility] in the past. Pt's goal is to return home when medically stable. SW is following to assist as needed with discharge planning.
[2019-02-01 15:55] VITALS: BP 94/57
--- NOTE | 2019-02-01 17:45 | NUR ---
ASSUMED CARE @ 0700 02/01/19, PT ASSESSMENTS AND VSS COMPLETED PER MST STATUS. PT ALERT AND ORIENTED X4, PT ABLE TO FOLLOW COMMANDS TO HIS ABILITIES. PT IN 1AVB;BBB RHYTHM ON THE MONITOR. PT ON RA, NO SIGNS OF SOA. PT ABLE TO TOLERATE DIET. AT BEDSIDE. FALL PRECAUTIONS IN PLACE AT THIS TIME.
[2019-02-01 19:40] VITALS: BP 104/64
[2019-02-02 04:15] VITALS: BP 96/66
--- NOTE | 2019-02-02 06:08 | NUR ---
PT MAKING SLOW PROGRESS TOWARDS GOALS. ASKING FOR PAIN MEDICATION APPROXIMATELY EVERY FOUR HOURS. ROUTINELY RATES RIGHT FLANK/BACK PAIN 6-7/10 AND 4-5/10 AFTER MORPHINE DOSE. PT ONLY ABLE TO VOID PER URINAL ONCE. DID VOID 100ML. MULTIPLE ATTEMPTS SINCE THAT TIME. "I FEEL LIKE IT'S RIGHT THERE BUT I JUST CAN'T GET IT OUT." DID RECEIVE ORDER TO PLACE STERLING CATHETER.
[2019-02-02 07:45] VITALS: BP 103/73
[2019-02-02 08:08] LABS: HEMOGLOBIN 8.9 gm/dL (14.0-18.0); MCH 32.1 pg (26.0-34.0); MCV 97.5 fL (80.0-100.0); RBC 2.77 mil/uL (4.50-6.00); RDW 17.3 % (10.5-14.5); WBC 4.8 thou/uL (4.0-11.0)
[2019-02-02 08:16] LABS: CALCIUM 8.4 mg/dL (8.5-10.1); MAGNESIUM 1.2 mg/dL (1.8-2.4); POTASSIUM 3.8 mmol/L (3.5-5.1)
[2019-02-02 12:34] LABS: FOLIC ACID 11.6 ng/mL (8.6-58.9)
--- NOTE | 2019-02-02 13:37 | NUR ---
DISCHARGE PLANNING. ANTICIPATED DISCHARGE TO HOME. HOME HEALTH SERVICES RECOMMENDED. REFERRAL [facility]XED TO [facility], PER PATIENT REQUEST. CALL PLACED TO [facility] TO NOTIFY OF REFERRAL. FOLLOWING.
--- NOTE | 2019-02-02 14:03 | NUR ---
SW reviewed chart and spoke with nursing and attending physician. Pt is scheduled to have colonoscopy tomorrow. SW met with pt at bedside to discuss post-acute plans. Therapy evaluated pt earlier today. Pt states he does not want to go to a SNF, but he is agreeable with having HH services. Pt has used [facility] in the past and would like to use them. land use planner to fax referral to [facility]. [facility] is following to assist as needed with discharge planning.
[2019-02-02 15:41] VITALS: BP 93/73
[2019-02-02 19:15] VITALS: BP 84/59
--- NOTE | 2019-02-02 19:31 | NUR ---
ASSUMED PATIENT CARE AT 0700. A/0 X4. DENIES PAIN. UP WITH ASSISTED. WILL HAVE COLONOSCOPY IN AM. VSS AFEBRILE.
[2019-02-02 23:30] VITALS: BP 90/64
[2019-02-03] VITALS (11 sets, daily range): BP systolic 78–100; BP diastolic 50–65
--- NOTE | 2019-02-03 05:43 | NUR ---
PT MAKING PROGRESS TOWARDS GOALS. ON O2 AT 2L PER NC. HAS DENIED ANY SOA. BOWEL PREP COMPLETED OVERNIGHT. STOOLS WATERY THIS MORNING BUT STILL [place]PAQUE. WILL ASK DAY RN TO CALL GI PHYSICIAN FOR FURTHER ORDERS. HAS DENIED NEED FOR ANY PAIN MEDICATION OVERNIGHT.
[2019-02-03 08:15] LABS: BE(vivo) -0.9 mmol/L (-2 to +3); HCO3 23.9 mmol/L (22.0-26.0); PCO2 39.9 mmHg (35.0-45.0); PO2 96.3 mmHg (80.0-100.0); pH 7.395 (7.360-7.450); sO2 97.3 % (92.0-98.0)
--- NOTE | 2019-02-03 14:40 | NUR ---
SW reviewed chart and spoke with nursing and attending physician. Pt had colonoscopy earlier today. Pt may be ready for discharge home over the weekend with HH services. SW met with pt and s/o at bedside to discuss discharge plan. Pt's s/o had questions about what the next step is with regards to needing further tests. Pt's s/o had requests about a possible transfer to [facility]. SW explained that if a transfer to [facility] was medically necessary, it can be pursued. Otherwise, pt could follow up as an outpatient at if that is what they would prefer. Pt and s/o verbalized understanding. Pt will discharge home with [facility]. corporate planner notified [facility] liaison. Contact info for [facility] placed in pt's discharge summary. SW is available to assist should needs arise.
--- NOTE | 2019-02-03 16:29 | NUR ---
ASSUMED PATIENT CARE AT 0700. A/0O X4. TOLERATED COLONOSCOPY AND DIET . BP ON LOW SIDE BUT ASYMPTOMATIC. DENIES PAIN. PROGRESSING TOWARDS POC GOALS.
[2019-02-04 03:21] VITALS: BP 87/63
--- NOTE | 2019-02-04 05:44 | NUR ---
Pt. stated he didn't sleep much last night stating he just doesn't sleep well in the hospital. Mild pain which he denies need for pain med. Afebrile. Low BP's reported to [employer] , pt. is asymptomatic and stated that is usually his baseline. Voided per urinal. Making progress towards care plan goals.
[2019-02-04 06:14] VITALS: BP 90/64
[2019-02-04 07:45] VITALS: BP 97/70
[2019-02-04 13:55] VITALS: BP 92/58
[2019-02-04] MEDS ORDERED: PROTONIX 20 MG20 M1 PO (14:20)
[2019-02-04] MEDS ORDERED: SIMETHICON CHEW80 M1 PO (14:20)
[2019-02-04] MEDS ORDERED: HYOSCYAMINE0.125 M1 PO (14:20)
[2019-02-04] MEDS ORDERED: CIPRO500 MG PO (14:20)
[2019-02-04] MEDS ORDERED: METRONIDAZOLE500 M4 PO (14:20)
[2019-02-04] MEDS ORDERED: LASIX 20 MG TAB20 MG PO (14:20)
--- NOTE | 2019-02-04 17:00 | NUR ---
pt's Flank pain has improved, pt's is A&OX3, PT's vs are stabel, pt was discharge to home at 1610pm, pt's family orange picking supervisor pt. RN has giving dischage teaching, pt understands well.
--- NOTE | 2019-02-06 16:06 | PATH ---
[facility] [place] [address] PATHOLOGY RPT PROCEDURE Name: ALEX DUFF Room #: 351-P DIS IN M.R.#: [id number] Admission: 01/31/19 Date of : 41 Discharge: 02/04/19 Report #: [id number] Path Case #: [id number] LCA Accession Number: [id number] . 01 Material submitted: . PART A: cecum - CECAL BIOPSY R/O COLITIS PART B: colon - ASCENDING COLON BIOPSY R/O COLITSI. Modifiers: ascending . 01 Clinical history: . Diverticulosis, right flank pain, abnormal CT. . 02 Diagnosis: A. "Cecal BX R/O colitis", biopsy: - Colonic mucosa with reactive changes and focal active colitis; no dysplasia seen. (See comment). . B. Ascending colon BX R/O colitis", biopsy: - Colonic mucosa with reactive changes including prominent reactive-appearing lymphoid aggregate and focal active colitis; no dysplasia seen. (See comment). . (CLW:torsten; 02/06/2019) QLM/02/06/2019 . 02 Comment: Focal active colitis can be seen in resolving infectious type colitis, incidentally with bowel preparation and quiescent chronic idiopathic inflammatory bowel disease. No increased chronic inflammation or chronic architectural changes are identified. Clinical and endoscopic correlation is required. . (CLW:mmeldon; 02/06/2019) . 02 Electronically signed: . Anabel Morales MD, Pathologist NPI- [id number] . 01 Gross description: . A. Received in formalin labeled "Alex Duff, cecal BX rule out colitis" is a 0.8 x 0.7 x 0.2 cm aggregate of slater-brown mucosa fragments. The specimen is submitted in A1. . B. Received in formalin labeled "Alex Duff, ascending colon BX rule out colitis" is a 0.8 x 0.7 x 0.2 cm aggregate of slater-brown mucosa fragments. The specimen is submitted in B1. ([facility]; 02/05/2019) SYC/SYC . [address] [place] [address] PATHOLOGY RPT PROCEDURE Name: ALEX DUFF Eldon Room #: 351-P DIS IN M.R.#: [id number] Admission: 01/31/19 Date of : 41 Discharge: 02/04/19 Report #: [id number] Path Case #: [id number] Pathologist provided ICD-10: K52.9, R10.9 . 02 CPT . 281804, 246765 Specimen Comment: A courtesy copy of this report has been sent to Specimen Comment: [phone], , . Specimen Comment: Report sent to ,DR CARTER / DR NUNEZ Performed at: [address], [place], [place] [id number] MD Nino Edmonds MD Phone: [phone] Performed at: [address] [id number] MD Ethel Jha MD Phone: [phone]
== END 2019-02-04 16:20 | disposition home or self-care (01) | DRG 391 ==
LOC: ER 15:35 → 3W 20:01 → EROBS 20:01 → 3W 21:21
PROVIDERS: Emergency Medicine; Internal Medicine Gastroenterology; Nurse Practitioner Family; Physician Assistant; ADMIT Internal Medicine
PROC: 0DBK8ZX Excision of Ascending Colon, Via Natural or Artificial Opening Endoscopic, Diagnostic (ICD-10-PCS; principal; 2019-02-03)
PROC: 0DBH8ZX Excision of Cecum, Via Natural or Artificial Opening Endoscopic, Diagnostic (ICD-10-PCS; principal; 2019-02-03)
DX: K52.9 Noninfective gastroenteritis and colitis, unspecified (principal); E43 Unspecified severe protein-calorie malnutrition; I77.72 Dissection of iliac artery; I69.359 Hemiplegia and hemiparesis following cerebral infarction affecting unspecified side; K57.30 Diverticulosis of large intestine without perforation or abscess without bleeding; I10 Essential (primary) hypertension; K21.9 Gastro-esophageal reflux disease without esophagitis; N40.0 Benign prostatic hyperplasia without lower urinary tract symptoms; I25.10 Atherosclerotic heart disease of native coronary artery without angina pectoris; E78.5 Hyperlipidemia, unspecified; I73.9 Peripheral vascular disease, unspecified; E87.6 Hypokalemia; I48.0 Paroxysmal atrial fibrillation; J44.9 Chronic obstructive pulmonary disease, unspecified; I72.3 Aneurysm of iliac artery; I35.0 Nonrheumatic aortic (valve) stenosis; E80.4 Gilbert syndrome; D50.9 Iron deficiency anemia, unspecified; E53.8 Deficiency of other specified B group vitamins; I71.4 Abdominal aortic aneurysm, without rupture; E83.42 Hypomagnesemia; K64.8 Other hemorrhoids; Z82.49 Family history of ischemic heart disease and other diseases of the circulatory system; Z98.42 Cataract extraction status, left eye; Z98.41 Cataract extraction status, right eye; Z95.5 Presence of coronary angioplasty implant and graft; Z88.6 Allergy status to analgesic agent; Z88.8 Allergy status to other drugs, medicaments and biological substances; Z87.891 Personal history of nicotine dependence
CPT/HCPCS: 10879; 62110; 62900

== ENCOUNTER 2019-02-24 09:33 | Outpatient (CLI) | payer OTHER ==
[~2019-02-24] VITALS: Ht 177.8 cm; Wt 80.7 kg
[2019-02-24] VITALS (8 sets, daily range): BP systolic 77–101; BP diastolic 51–60
[~2019-02-24 09:33] MED LIST changes: +CIPRO500 MG PO; +HYOSCYAMINE0.125 M1 PO; +LASIX 20 MG TAB20 MG PO; +METOPROLOL SUCC25 M1 PO; +METRONIDAZOLE500 M4 PO; +PROTONIX 20 MG20 M1 PO; +SIMETHICON CHEW80 M1 PO
[2019-02-24] MEDS ORDERED: LASIX 20 MG TAB20 MG PO (10:45)
[2019-02-24] MEDS ORDERED: FLOMAX0.4 MG PO (10:45)
[2019-02-24] MEDS ORDERED: PACERONE 200 M200 M1 PO (10:46)
[2019-02-24] MEDS ORDERED: ELIQUIS5 MG PO (10:48)
[2019-02-24] MEDS ORDERED: TOPROL XL25 MG PO (10:49)
[2019-02-24] MEDS ORDERED: PROTONIX40 M1 IV PUSH (10:51)
[2019-02-24] MEDS ORDERED: GAS RELIEF80 MG PO (10:53)
--- NOTE | 2019-02-24 15:39 | NUR ---
PT ARRIVED ABOUT 1515, A&0X4, REMINDED OF INSTRUCTIONS RE: R LEG REMAINING STRAIGHT, SIGNIFICANT OTHER AT BEDSIDE. CHARGE, HOUSE SUPV, AND NURSE REPORTING OFF STATED THIS ISN'T AN ADMIT, NOR OBSERVATION. HEMOSTASIS WAS REPORTED ACHIEVED AT 1300 WITH PT ABLE TO GET UP AT 1900. REMINDED PT D/C WOULD BE SOMETIME THIS EVENING AFTER HE'S ABLE TO MOVE AROUND WHEN HIS NIGHT NURSE IS ABLE TO MONITOR HIS SITE P MOVEMENT. NO PAPERWORK. FILLING OUT HE POST CATH FORM FOR OUR CHART FOR VS AND GROIN CHECKS. PT HAS URINALS, CALL LIGHT USE EDUCATION, AND WARM BLANKETS FOR BOTH HE AND HIS FRIEND.
--- NOTE | 2019-02-24 17:48 | NUR ---
NO SPECIFIC D/C SUMMARY, TYPED UP HOW TO DO A D/C FOR NIGHT STAFF THEN SAW DR. COSTELLO AND HE STATED THEY ARE IN MISC AND PT HAD A SHEET TO SIGN UPON D/C. THIS IS AFTER THE PT WAS ADMITTED FULLY PER ORDERS AND FACT STENTS PLACED. WILL LET NOC STAFF KNOW.
--- NOTE | 2019-02-24 20:20 | NUR ---
PATIENT ALERT AND ORIENTED.GIRLFRIEND IS IN THE ROOM WITH HIM.VITAL SIGNS STABLE.RIGHT GROIN C/D/I;SOFT,NO HEMATOMA OR BLEEDING NOTED.WALKED IN THE HALLWAYS WITHOUT ANY PROBLEM.DENIES ANY PAIN AND DIZZINESS.SIGNED DISCHARGE SHEET AFTER GIVING INSTRUCTIONS;PATIENT VERBALIZED UNDERSTANDING.LEFT THE UNIT AOUND 2030.
== END 2019-02-24 20:30 | disposition home or self-care (01) ==
LOC: CATH 09:33 → 2N 15:37 → CATH 20:30
DX: I70.248 Atherosclerosis of native arteries of left leg with ulceration of other part of lower leg (principal); I72.3 Aneurysm of iliac artery; I70.1 Atherosclerosis of renal artery; I10 Essential (primary) hypertension; I25.10 Atherosclerotic heart disease of native coronary artery without angina pectoris; K21.9 Gastro-esophageal reflux disease without esophagitis; D64.9 Anemia, unspecified; I48.91 Unspecified atrial fibrillation; Z87.891 Personal history of nicotine dependence; Z79.01 Long term (current) use of anticoagulants; I50.9 Heart failure, unspecified

== ENCOUNTER → 2019-05-30 | Outpatient (CLI) | payer OTHER ==
[~2019-05-30] MED LIST changes: +AMIODARONE HCL400 MG PO; +GAS RELIEF80 MG PO; +PROTONIX40 M1 IV PUSH; +TORSEMIDE20 MG PO
[2019-05-30 13:08] VITALS: BP 80/52
[2019-05-30 14:42] VITALS: BP 78/47
--- NOTE | 2019-05-30 15:12 | NUR ---
THE PATIENT IS HERE A NEW PATIENT FOR 1ST DOSE OF INJECTAFER. OP HISTORY AND MED LIST UPDATED. THE PATIENT REPORTS LONG HISTORY OF HYPOTENSION. BLOOD PRESSURE LOW AND THE PATIENT REPORTS THAT IS A NORMAL BLOOD PRESSURE FOR HIM. PERIPHERAL IV STARTED AND THE PATIENT TOLERATED THE INFUSION WITHOUT S/S OF ANY ADVERSE REACTIONS. PERIPHERAL IV REMOVED. QUESTIONS ANSWERED AND AN APPOINTMENT MADE FOR 2ND DOSE FOR 06/08 AT 1PM PER PATIENT REQUEST. ESCORTED OUT VIA WHEELCHAIR BY VOLUNTEER STAFF.
== END ==
LOC: OPONC 12:50
DX: D50.9 Iron deficiency anemia, unspecified (principal); K90.9 Intestinal malabsorption, unspecified; I25.10 Atherosclerotic heart disease of native coronary artery without angina pectoris; I50.32 Chronic diastolic (congestive) heart failure; I48.0 Paroxysmal atrial fibrillation; I73.9 Peripheral vascular disease, unspecified; J44.9 Chronic obstructive pulmonary disease, unspecified; E78.2 Mixed hyperlipidemia; Z95.828 Presence of other vascular implants and grafts
CPT/HCPCS: 95000

== ENCOUNTER → 2019-06-08 | Outpatient (CLI) | payer OTHER ==
[~2019-06-08] MED LIST changes: +LEVO-T25 MCG PO
[2019-06-08 13:25] VITALS: BP 82/55
[2019-06-08 15:20] VITALS: BP 103/52
--- NOTE | 2019-06-08 16:00 | NUR ---
IN FOR 2ND INJECTAFER INFUSION. STATED FELT ACHY FOR 2 DAYS AFTER 1ST INFUSION LAST WEEK. FEELING WELL TODAY EXCEPT RIGHT HAND SWOLLEN FROM ARTHRITIS. PATIENT HAS VERY POOR PERIPHERAL VEINS. IV TEAM HAD TO START IV. PATIENT'S IV INFILTRATED BEFORE ALL OF MEDICATION INFUSED. DID NOT GET APPROX. 50ML OF 265ML. PATIENT REQUESTED TO NOT START ANOTHER IV. IV REMOVED. SMALL AMOUNT OF EDEMA NOTED ABOVE IV STICK SITE. OBSERVED FOR 30 MINUTES. POST VITAL SIGNS GOOD. INFILTRATION OF IV SITE ALMOST RESOLVED. NO REACTION NOTED. DISMISSED IN STABLE CONDITION.
== END ==
LOC: OPONC 12:05
DX: D50.9 Iron deficiency anemia, unspecified (principal); K90.49 Malabsorption due to intolerance, not elsewhere classified; I25.10 Atherosclerotic heart disease of native coronary artery without angina pectoris; I50.32 Chronic diastolic (congestive) heart failure; I48.0 Paroxysmal atrial fibrillation; I35.0 Nonrheumatic aortic (valve) stenosis; I73.9 Peripheral vascular disease, unspecified; E78.2 Mixed hyperlipidemia; J44.9 Chronic obstructive pulmonary disease, unspecified
CPT/HCPCS: 95000

== ENCOUNTER 2019-06-19 08:58 | Inpatient (IN) | payer OTHER ==
[~2019-06-19] VITALS: Ht 177.8 cm; Wt 85.3 kg
--- NOTE | ~2019-06-19 | HC ---
[facility] [place] [address] CONSULTATION Name: YOU DUFF Room #: 242-P [facility] IN .R.#: [id number] Admission: 06/19/19 Attend Phys: Indio Mack MD Discharge: Date of : 43 Report #: [id number] THIS REPORT FOR: //name// CC: Reg Mack REASON FOR CONSULTATION: Acute kidney injury, low urine output. HISTORY OF PRESENT ILLNESS: This is obtained from the medical chart. The patient is currently intubated and not able to provide me with the details of the history. He is a 74-year-old with extensive past medical history including and not limited to hypertension, hyperlipidemia, AFib, coronary artery disease, status post angioplasty in the past. He is also known to have an AAA repair. He most recently presented to the hospital reporting that he has been gaining weight with significant shortness of breath. He was admitted to be further evaluated. The patient was in the CCU for couple of days when he had a code blue event and required intubation and transfer to the ICU. Currently, he is intubated. Most recent echo revealed a significantly depressed ejection fraction of 35%. He was also found to have moderately severe aortic stenosis. He also had severe mitral regurgitation. The patient's creatinine on presentation was 1.7. This has risen to 2.2; however, it is starting to come down to 1.8 as of this morning. He has normal kidney function back in January 2019. PAST MEDICAL HISTORY: Extensive and includes the followin. Severe aortic stenosis. 2. Coronary artery disease. 3. Hyperlipidemia. 4. Aortic aneurysm repair. 5. Cervical neck surgery. 6. History of GI bleeding. 7. Carotid endarterectomy. 8. Status post cardiac arrest. 9. Atrial fibrillation. 10. Respiratory failure. 11. Hyperlipidemia. SOCIAL HISTORY: Unable to obtain given the patient's current mental status. ALLERGIES: OXYCODONE and ACETAMINOPHEN. SOCIAL HISTORY: Unable to obtain given the patient's current mental status. OUTPATIENT MEDICATIONS: 1. Flomax. 2. Atorvastatin. [facility] [address] [place] [address] CONSULTATION Name: YOU DUFF Room #: 242-P [facility] IN [facility].#: [id number] Admission: 06/19/19 Attend Phys: Indio Mack MD Discharge: Date of : 43 Report #: [id number] 3. Diltiazem. 4. Torsemide. 5. Levothyroxine. 6. Amiodarone. REVIEW OF SYSTEMS: Unobtainable given the patient's current mental status. PHYSICAL EXAMINATION: GENERAL: He is intubated. VITAL SIGNS: Pulse rate is 62, blood pressure is 101/44. He is off Levophed. HEAD AND NECK: ET tube. CHEST: Decreased air entry bilaterally with minimal basilar crackles. CARDIOVASCULAR: No rub detected. ABDOMEN: Soft, nontender. EXTREMITIES: Lower extremities, +1 edema. LABORATORY VALUES: Revealed sodium of 134, potassium of 2.8, BUN of 27, creatinine of 1.8. IMPRESSION AND PLAN: 1. Acute respiratory failure. 2. Status post cardiac arrest. 3. Chronic kidney disease. 4. Acute kidney injury. 5. Atrial fibrillation. 6. Severe aortic stenosis. 7. Chronic obstructive pulmonary disease. 8. History of gastrointestinal bleeding. 9. Hyperlipidemia. 10. Peripheral vascular disease. 11. Currently, the patient is intubated and sedated. He is off Levophed. He was initiated by the renal service on IV Lasix drip and he seems to make some progress with the urine output up to 3000. 12. Continue with the Lasix drip. 13. He is running into some issues with hypokalemia and this is being replaced. 14. Continue hemodynamic support. 15. Avoid nephrotoxins. 16. Continue to address his pulmonary status as per the pulmonary team. 17. We will continue to follow along. By: 0937 [id number] Nikki Blood MD /nt
[2019-06-19 09:03] VITALS: BP 101/82
[2019-06-19 09:40] LABS: HEMATOCRIT 34.7 % (42.0-52.0); HEMOGLOBIN 11.3 gm/dL (14.0-18.0); MCH 34.7 pg (26.0-34.0); MCHC 32.4 g/dL (28.0-37.0); MCV 106.9 fL (80.0-100.0); PLATELET COUNT 186 thou/uL (150-400); RBC 3.25 mil/uL (4.50-6.00); RDW 17.6 % (10.5-14.5); WBC 4.5 thou/uL (4.0-11.0)
[2019-06-19 09:44] LABS: ANION GAP 12 mmol/L (7-16); BUN 18 mg/dL (7-18); CALCIUM 8.7 mg/dL (8.5-10.1); CHLORIDE 98 mmol/L (98-107); CO2 29 mmol/L (21-32); CREATININE 1.7 mg/dL (0.7-1.3); GLUCOSE 83 mg/dL (74-106); POTASSIUM 3.7 mmol/L (3.5-5.1); SODIUM 139 mmol/L (136-145)
[2019-06-19] MEDS ORDERED: POTASSIUM20 PO (09:47)
[2019-06-19] MEDS ORDERED: CARDIZEM CD 18180 M3 PO (09:49)
[2019-06-19 09:54] LABS: ALBUMIN 3.3 g/dL (3.4-5.0); DIRECT BILIRUBIN 0.8 mg/dL (<0.1-0.2); SGOT 63 U/L (15-37); SGPT 36 U/L (30-65); TOTAL BILIRUBIN 1.7 mg/dL (<0.1-1.0); TOTAL PROTEIN 7.4 g/dL (6.4-8.2); TROPONIN-I <0.06 ng/mL (<0.06)
--- NOTE | 2019-06-19 10:26 | EKG ---
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: DEENA : 1945 Requested By: Katiana Corley Order Number: [id number] MD: Stephan Silverio Measurements Intervals [place] Rate: 93 P: 59 [place]: 177 QRS: -14 QRSD: 214 T: QT: 427 QTc: 532 Interpretive Statements Baseline artifact limits interpretation Sinus rhythm Right bundle branch block T wave abnormality, consider lateral ischemia Compared to ECG 09/17/2018 16:12:31 Lateral T wave abnormality is new Electronically Signed On 06-19-2019 10:25:28 CLAIM ATTORNEY by Stephan Silverio [email or web address] <ELECTRONICALLY SIGNED> By: Stephan Silverio MD, [facility] 06/19/19 1025 4 4 Stephan Silverio MD, FAC /EPI
[2019-06-19 14:01] LABS: ABSOLUTE NEUTROPHILS 3.5 thou/uL (1.4-8.2); ANISOCYTOSIS 1+; MACROCYTES 1+; OVALOCYTES FEW
[2019-06-19 14:05] LABS: % SATURATION 33 % (20-39); IRON 82 ug/dL (65-175); TIBC 247 ug/dL (250-450)
[2019-06-19 18:00] VITALS: BP 103/58
[2019-06-19 18:10] VITALS: BP 132/81
[2019-06-19 20:24] VITALS: BP 91/42
[2019-06-20] VITALS (59 sets, daily range): BP systolic 81–119; BP diastolic 41–83
--- NOTE | 2019-06-20 02:35 | NUR ---
ASSUMED CARE OF PATIENT FROM DAY SHIFT RN. ADMISSION COMPLETE, RESTING THROUGH THE NIGHT. C/O SOME BACK PAIN. TREATED WITH PRN FENTYNAL, APPEARS MUCH MORE COMFORTABLE. IV FLUIDS STOPPED. POC GOALS ESTABLISHED. WILL CONTINUE TO MONITOR.
[2019-06-20 05:21] LABS: CALCIUM 7.9 mg/dL (8.5-10.1); CREATININE 1.9 mg/dL (0.7-1.3); MAGNESIUM 1.1 mg/dL (1.8-2.4)
[2019-06-20 05:28] LABS: HEMOGLOBIN 10.4 gm/dL (14.0-18.0); MCH 34.9 pg (26.0-34.0); MCHC 32.6 g/dL (28.0-37.0); MCV 106.9 fL (80.0-100.0); RBC 2.99 mil/uL (4.50-6.00); RDW 17.7 % (10.5-14.5)
[2019-06-20 05:44] LABS: POTASSIUM 4.8 mmol/L (3.5-5.1)
[2019-06-20 11:07] LABS: BE(vivo) -7.9 mmol/L (-2 to +3); HCO3 16.7 mmol/L (22.0-26.0); PCO2 31.5 mmHg (35.0-45.0); PO2 142.2 mmHg (80.0-100.0); pH 7.343 (7.360-7.450); sO2 98.7 % (92.0-98.0)
--- NOTE | 2019-06-20 11:25 | NUR ---
ASSESSMENT DOCUMENT. PT ALERT AND ORIENTED THIS AM. WORKED WITH OT. OT REPORTED THAT PT WAS DESARTING TO 70's WITH ACTIVITY. PT REPORTED THAT HE NEVER USES OXYGEN AT HOME. AM MEDS GIVEN ORDERED. PT REPORTED TO PHYSICAL THERAPIST THAT HE WAS NOT FEELING WELL AND WANTED TO GO BACK TO BED. PHYSICAL THERAPIST CALLED FOR HELP REPORTED THAT PT APPEARED TO HAVE DIFFICULTY BREATHING. CODE INITIATED. SEE CODE FLOW SHEET. PT TRANSFERED TO ROOM 248. FAMILY RANCHO NOTIFIED OF PT'S CHANGE OF CONDITION.
--- NOTE | 2019-06-20 11:29 | NUR ---
VASCULAR ACCESS TEAM RESPONDED TO CODE, VERBAL ORDER FOR CENTRAL LINE. PT'S HISTORY AND LABS REVIEWED. ALEXI BRACHIAL WAS WIDELY PATENT WITH USG. 5FR TL POWER PICC TRIMMED TO 44CM INSERTED WITH BRISK BR EXTERNAL 4CM. 1ST CXR SHOWED LINE CURLED. PICC POWER FLUSHED AND REPOSITIONED 2ND CXR TAKEN. LABS DRAWN.
[2019-06-20 11:38] LABS: HEMATOCRIT 32.1 % (42.0-52.0); HEMOGLOBIN 10.4 gm/dL (14.0-18.0); MCH 34.7 pg (26.0-34.0); MCHC 32.5 g/dL (28.0-37.0); MCV 106.8 fL (80.0-100.0); RBC 3.01 mil/uL (4.50-6.00); RDW 17.8 % (10.5-14.5); WBC 12.2 thou/uL (4.0-11.0)
[2019-06-20 11:48] LABS: CALCIUM 7.7 mg/dL (8.5-10.1); CREATININE 2.2 mg/dL (0.7-1.3)
[2019-06-20 11:59] LABS: ALBUMIN 2.5 g/dL (3.4-5.0); TOTAL PROTEIN 5.9 g/dL (6.4-8.2); TROPONIN-I 0.33 ng/mL (<0.06)
--- NOTE | 2019-06-20 12:19 | NUR ---
PATIENT TRANSFERRED TO ICU. Pt IS ON HOLD FOR O.T. DUE TO CHANGE IN STATUS. NEW ORDERS ARE NEEDED IF/WHEN APPROPRIATE.
--- NOTE | 2019-06-20 12:33 | NUR ---
1030-RESPONDED TO CODE ON CCU.PT W ROSC,TRANSF TO ICU 248 FULLY MONITORED.--VW 1230-PT RESPONDING INITITALLY BY NODDING HEAD APPROP TO YES/NO ?'S,FOLLOWING 1 &2 STEP MEREDITH.PLACED ON PROPOFOL FOR VENT COMFORT,LINES NEEDED TO BE PLACED.ALEXI PICC PLACED,ADJUSTED NEEDED BY IVT & OK TO USE.PLACED ON LEVO WHEN PROPOFOL STARTED BPS LOW 90'S & DOWN TO 60'S AT ONE POINT. (DRY?). MARY STERLING PLACED. Ebony VICKERS IN BRIEFLY. IN TO SEE. PT NOW WAKES,RESTLESS.NODS YES WHEN ?'D RE PAIN.SEE ASSESSMENT.ECHO DONE.VENOUS U.S. PENDING.--VW
--- NOTE | 2019-06-20 12:47 | NUR ---
PT PLACED ON HOLD FROM P.T. DUE TO CHANGE IN MEDICAL STATUS AND SUBSEQUENT INTUBATION AND TX TO ICU. REQUEST NEW P.T. ORDERS ONCE APPROPRIATE.
--- NOTE | 2019-06-20 13:01 | 2DMMODE ---
[facility] [employer] [place] [address] 2 D/M-MODE ECHOCARDIOGRAM Name: YOU DUFF Keith Room #: 248-P [facility] IN [facility]#: [id number] Admission: 06/19/19 Attend Phys: Indio Mack MD Discharge: Date of : 43 Report #: [id number] THIS REPORT FOR: //name// APPROVED REPORT Study performed: 06/20/2019 12:07:17 EXAM: Comprehensive 2D, Doppler, and color-flow Echocardiogram Patient Location: ICU Room #: 248 Status: routine BSA: 2.02 HR: 73 bpm BP: 98/59 mmHg Rhythm: Atrial Fibrillation Other Information Study Quality: Good/patient flat on back on vent. Indications CAD Status post cardiac arrest. Hx: SD, stents, Afib, COPD. 2D Dimensions RVDd: 48.31 mm IVSd: 11.06 (7-11mm) LVOT Diam: 20.67 (18-24mm) LVDd: 51.48 mm PWd: 10.66 (7-11mm) Ascending Ao: 29.66 (22-36mm) LVDs: 45.52 (25-40mm) Aortic Root: 32.68 mm Volumes Left Atrial Volume (Systole) Single Plane 4CH: 92.05 mL Single Plane 2CH: 120.27 mL LA ESV Index: 56.00 mL/m2 Aortic Valve AoV Peak Ben.: 3.32 m/s AO Peak Gr.: 44.18 mmHg LVOT Max P.24 mmHg AO Mean Gr.: 24.65 mmHg AO V2 Mean: 2.36 m/s LVOT Max V: 0.75 m/s AO V2 VTI: 50.59 cm PITO Vmax: 0.76 cm2 [facility] [address] [place] [address] 2 D/M-MODE ECHOCARDIOGRAM Name: YOU DUFF Keith Room #: 248-[facility]#: [id number] Admission: 06/19/19 Attend Phys: Indio Mack MD Discharge: Date of : 43 Report #: [id number] Mitral Valve MV Decel. Time: 119.49 ms MV E Max Ben.: 1.11 m/s Pulmonary Valve PV Peak Ben.: 0.92 m/s PV Peak Gr.: 3.37 mmHg Tricuspid Valve TR Peak Ben.: 2.83 m/s RAP Estimate: 15.00 mmHg TR Peak Gr.: 32.08 mmHg PA Pressure: 47.00 mmHg Left Ventricle The left ventricle is normal size. There is global hypokinesis of the left ventricle. There is normal left ventricular wall thickness. Left ventricular systolic function is moderately decreased. LVEF is 35%. This study is not technically sufficient to allow evaluation of the LV diastolic function due to atrial fibrillation. Right Ventricle Right ventricle is moderately dilated. Right ventricle is hypokinetic. Atria Left atrium is severely dilated. Right atrium is severely dilated. Aortic Valve The aortic valve is heavily calcified, moderately severe to severe stenosis. Mild aortic regurgitation. There is severe valvular aortic stenosis. Calculated aortic valve area is 0.8 cm2 with maximum pressure gradient of 44 mmHg and mean pressure gradient of 25 mmHg. Mitral Valve The mitral valve leaflets are mildly thickened and calcified. Mild mitral annular calcification. Moderate to moderately severe mitral regurgitation Tricuspid Valve The tricuspid valve is normal in structure. Mild to moderate tricuspid regurgitation. Estimated PAP is 45 mmHg. Pulmonic Valve The pulmonary valve is normal in structure. Trace pulmonic [facility] [address] [place] [address] 2 D/M-MODE ECHOCARDIOGRAM Name: YOU DUFF Room #: 248-P [facility] IN ..#: [id number] Admission: 06/19/19 Attend Phys: Indio Mack MD Discharge: Date of : 43 Report #: [id number] regurgitation. Great Vessels The aortic root is normal in size. The ascending aorta is normal in size. IVC is dilated and collapses <50% with inspiration. Pericardium There is no pericardial effusion. Left and right pleural effusions noted. <Conclusion> Left ventricular systolic function is moderately decreased. There is global hypokinesis of the left ventricle. LVEF is 35%. Right ventricle is moderately dilated and hypokinetic. Both atria are severely dilated. The aortic valve is heavily calcified, moderately severe to severe stenosis. Mild aortic regurgitation. Calculated aortic valve area is 0.8 cm2 with maximum pressure gradient of 44 mmHg and mean pressure gradient of 25 mmHg. The mitral valve leaflets are mildly thickened and calcified. Mild mitral annular calcification. Moderate to moderately severe mitral regurgitation Mild to moderate tricuspid regurgitation. Estimated pulmonary artery pressure of 45 mmHg. There is no pericardial effusion. <ELECTRONICALLY SIGNED> By: Stephan Silverio MD, FACC 06/20/19 1300 1300 1300 Stehpan Silverio MD, FACC /INF
--- NOTE | 2019-06-20 13:10 | EKG ---
[place] [address] [employer] [facility] [place] [address] ELECTROCARDIOGRAM REPORT Name: YOU DUFF Room #: 248-P [facility] IN M.R.#: [id number] Admission: 06/19/19 Attend Phys: Indio Mack MD Discharge: Date of : 41 Report #: [id number] THIS REPORT FOR: //name// [facility] Test Date: 2019-06-20 Test Time: 09:24:27 Pat Name: YOU DUFF Department: Room: 248 Gender: M Wildlife Control Operator: DIANA : 1945 Requested By: Stephan Silverio Order Number: [id number] MD: Stephan Silverio Measurements Intervals [place] Rate: 79 P: [place]: QRS: -76 QRSD: 194 T: 44 QT: 435 QTc: 499 Interpretive Statements Sinus rhythm with first-degree AV block Right bundle branch block Compared to ECG 06/19/2019 09:05:04 No significant change was found Electronically Signed On 06-20-2019 13:10:04 SAFETY DEPOSIT CLERK by Stephan Silverio [email or web address] <ELECTRONICALLY SIGNED> By: Stephan Silverio MD, [facility] 06/20/19 1310 3 3 Stephan Silverio MD, [facility] /EPI
--- NOTE | 2019-06-20 13:13 | EKG ---
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: DIANA : 1945 Requested By: John Sim Order Number: [id number] MD: Stephan Silverio Measurements Intervals [place] Rate: 88 P: 0 MT: 208 QRS: -96 QRSD: 191 T: 73 QT: 391 QTc: 473 Interpretive Statements Sinus rhythm Right bundle branch block Possible anterior infarct, age indeterminate Compared to ECG 06/19/2019 09:05:04 No significant change was found Electronically Signed On 06-20-2019 13:13:04 WHARF OPERATOR by Stephan Silverio [email or web address] <ELECTRONICALLY SIGNED> By: Stephan Silverio MD, [facility] 06/20/19 1313 1021 1021 Stephan Silverio MD, [facility] /EPI
[2019-06-20 14:20] LABS: APTT 41.4 Seconds (24.5-32.8); INR 1.8; PROTIME 18.7 Seconds (9.3-11.4)
[2019-06-20 14:27] LABS: D-DIMER 24.12 ug/mLFEU (0.19-0.50)
--- NOTE | 2019-06-20 14:52 | NUR ---
PICC RELEASED FOR NAILA RN FOR IMMEDIATE USE AFTER CXR CONFIRMED PROPER PLACEMENT PER POLICY
[2019-06-21] VITALS (63 sets, daily range): BP systolic 85–112; BP diastolic 22–69
[2019-06-21 05:45] LABS: HCO3 27.8 mmol/L (22.0-26.0); PCO2 38.7 mmHg (35.0-45.0); PO2 111.6 mmHg (80.0-100.0); pH 7.474 (7.360-7.450); sO2 98.3 % (92.0-98.0)
[2019-06-21 05:45] LABS: HEMATOCRIT 30.3 % (42.0-52.0); HEMOGLOBIN 10.1 gm/dL (14.0-18.0); MCH 35.2 pg (26.0-34.0); MCHC 33.4 g/dL (28.0-37.0); MCV 105.3 fL (80.0-100.0); RBC 2.88 mil/uL (4.50-6.00); RDW 17.6 % (10.5-14.5); WBC 7.9 thou/uL (4.0-11.0)
[2019-06-21 05:55] LABS: CALCIUM 7.6 mg/dL (8.5-10.1); CREATININE 1.8 mg/dL (0.7-1.3)
[2019-06-21 06:41] LABS: POTASSIUM 2.8 mmol/L (3.5-5.1)
--- NOTE | 2019-06-21 07:20 | NUR ---
Pt progressing toward goals; able to titrate off levophed this shift; able to titrate down FiO2 from 80% to 35%, O2 sat still > 95%. Pt diuresed well from Lasix gtt, 3650 cc urine this shift.
[2019-06-21 12:41] LABS: BE(vivo) 3.7 mmol/L (-2 to +3); HCO3 26.9 mmol/L (22.0-26.0); PCO2 35.9 mmHg (35.0-45.0); PO2 87.4 mmHg (80.0-100.0); pH 7.493 (7.360-7.450); sO2 97.3 % (92.0-98.0)
[2019-06-21 16:54] LABS: CALCIUM 8.8 mg/dL (8.5-10.1); CREATININE 1.6 mg/dL (0.7-1.3)
--- NOTE | 2019-06-21 18:20 | NUR ---
Assumed care at 0700. PT was awake on the vent and able to follow commands and communicate using a whiteboard and marker. Weaning trial was started at approximately 1100. PT tolerated it well and was extubated at 1325. PT's potassium and magnesium was replaced per the Machine Learning Intern's order not the electrolyte replacement protocol. Dr. Corona placed the PT on a clear liquid diet with an order to [facility] as tolerated. PT appears to tolerate liquids well. PT is currently on 2L of O2 via NC and saturation is 96%. PT is sitting up in bed, alert, A&Ox4. Call light is within reach. Fall precautions in place. Nurse will continue to monitor.
[2019-06-22] VITALS (15 sets, daily range): BP systolic 70–116; BP diastolic 37–77
[2019-06-22 05:52] LABS: HEMATOCRIT 28.6 % (42.0-52.0); HEMOGLOBIN 9.4 gm/dL (14.0-18.0); MCH 34.9 pg (26.0-34.0); MCV 105.7 fL (80.0-100.0); RBC 2.7 mil/uL (4.50-6.00); RDW 18.3 % (10.5-14.5); WBC 5.1 thou/uL (4.0-11.0)
[2019-06-22 06:13] LABS: ALBUMIN 2.5 g/dL (3.4-5.0); CALCIUM 7.6 mg/dL (8.5-10.1); CREATININE 1.6 mg/dL (0.7-1.3); POTASSIUM 3.7 mmol/L (3.5-5.1)
--- NOTE | 2019-06-22 08:59 | EKG ---
[place] [address] [facility] [place] [address] ELECTROCARDIOGRAM REPORT Name: YOU DUFF Room #: 242-P [facility] IN M.R.#: [id number] Admission: 06/19/19 Attend Phys: Indio Mack MD Discharge: Date of : 41 Report #: [id number] THIS REPORT FOR: //name// [facility] Test Date: 2019-06-22 Test Time: 07:03:03 Pat Name: YOU DUFF Department: Room: 242 P Gender: M Track Repair Supervisor: DIANA : 1945 Requested By: Stephan Silverio Order Number: [id number] MD: Stephan Silverio Measurements Intervals [place] Rate: 75 P: 63 DC: 217 QRS: -46 QRSD: 170 T: 117 QT: 525 QTc: 587 Interpretive Statements Sinus rhythm Borderline prolonged DC interval Right bundle branch block Anterior infarct, age indeterminate Compared to ECG 06/20/2019 10:21:46 No significant changes Electronically Signed On 06-22-2019 8:58:41 SENIOR ANALYST MARKET INTELLIGENCE by Stephan Silverio [email or web address] <ELECTRONICALLY SIGNED> By: Stephan Silverio MD, [facility] 06/22/19 0858 2 2 Stephan Silverio MD, [facility] /EPI
--- NOTE | 2019-06-22 13:13 | NUR ---
ASSUMED CARE OF PT AT 0645. WORK WITH THERAPY. DIET ADVANCED, JC PO. TX TO 2N WITH BELONINGS AND FAMILY.
--- NOTE | 2019-06-22 15:54 | NUR ---
Chart reviewed and case discussed with the care team. Pt tranfered to 2N from ICU today. He was a cardiac arrest two days ago but was quickly extubated and progressing. PT/OT evals today. They would like to reassess tomorrow. The pt is normally indep and lives with his sign other Moni. He uses a cane or rwalker at home and has two steps to enter the home. They live on the main floor and can avoid going upstairs. He has had hh with [facility] in the past 6 months. He is hoping to go home at [facility]. [facility] can accept him for hh if needed at [facility]. Will await therapy /care team recommendations. Support provided.
--- NOTE | 2019-06-22 19:41 | NUR ---
PT TRANSFERED FROM ICU IN STABLE CONDITION. ALERT AND ORIENTED. RECEIVED PRN PAIN MED WITH PARTIAL RELIEF. NO CARDIAC OR RESPIRATORY DISTRESS NOTED. NO CONCERNS AT THIS TIME. WILL CONTINUE TO MONITOR.
[2019-06-23 00:01] VITALS: BP 114/59
[2019-06-23 04:45] VITALS: BP 107/65
--- NOTE | 2019-06-23 05:26 | NUR ---
ASSUMED PT CARE AROUND 1915. PT VISITING WITH FAMILY AT BEDSIDE. PT HAD NO C/O OF PAIN AT PRESENT MOMENT ALTHOUGH STATES THERE CAN BE MOMENTS OF PRESSURE ON STERNUM FROM WHERE THE RIBS WERE BROKEN. DID NOT WANT PAIN MEDICATION AT THAT TIME, REQUESTED SOME LATER IN SHIFT. PT RESTED THRU NIGHT WITH MINIMAL INTERRUPTIONS. PT WAS WHEEZY BUT DENIED BEING SOB AND OXYGENATION LEVELS WERE ADEQUATE. MONITORING PATIENT FOR ANY SIGNS/SYMPTOMS OF DISTRESS.
[2019-06-23 06:05] LABS: ALBUMIN 2.7 g/dL (3.4-5.0); CALCIUM 8.2 mg/dL (8.5-10.1); CREATININE 1.6 mg/dL (0.7-1.3); PHOSPHORUS 3.4 mg/dL (2.5-4.9); POTASSIUM 3.8 mmol/L (3.5-5.1)
[2019-06-23 07:30] VITALS: BP 106/90
[2019-06-23 12:00] VITALS: BP 109/62
--- NOTE | 2019-06-23 13:59 | NUR ---
[facility] has evaluated the pt for possible acute rehab stay. They can accept him and will likely have a bed available this weekend if medically ready. Care team and the attending updated. Pt and updated at bedside. Options discussed. They are open to acute rehab and [facility]. encouraged to tour. HH referral with [facility] also discussed. Pt still on some o2 per NC. Working with therapy but could benefit due to deconditioning s/p cardiac arrest. Will follow.
--- NOTE | 2019-06-23 14:28 | EKG ---
[address] [place] [address] ELECTROCARDIOGRAM REPORT Name: YOU DUFF Room #: 208-P ADM IN M.R.#: [id number] Admission: 06/19/19 Attend Phys: Indio Mack MD Discharge: Date of : 43 Report #: [id number] THIS REPORT FOR: //name// [facility] Test Date: 2019-06-23 Test Time: 07:37:40 Pat Name: YOU DUFF Department: Room: 208 P Gender: M Dermatologist And Dermatopathologist: Negrito MARIE : 1945 Requested By: Stephan Silverio Order Number: [id number] MD: Enrico Montgomery Measurements Intervals [place] Rate: 73 P: 49 MN: 205 QRS: -44 QRSD: 178 T: 32 QT: 498 QTc: 549 Interpretive Statements Sinus rhythm Right bundle branch block Compared to ECG 06/22/2019 07:03:03 No significant changes Electronically Signed On 06-23-2019 14:27:46 FLAME HARDENING MACHINE SETTER by Enrico Montgomery [email or web address] <ELECTRONICALLY SIGNED> By: Enrico Montgomery MD 06/23/19 1427 6 6 Enrico Montgomery MD /CHIKIS
[2019-06-23 16:00] VITALS: BP 119/68
--- NOTE | 2019-06-23 17:23 | NUR ---
ASSESSMENT CHARTED. PT ALERT AND ORIENTED. VSS. RECEIVED PRN PAIN MED THIS SHIFT. UP IN THE CHAIR. PARTICIPATED IN PT AND OT. NO RESPIRATORY OR CARDIAC DISTRESS NOTED. PLAN TO BE DISCHARGE TO [address] [place] [address] WHEN CLINICALLY STABLE. WILL CONTINUE TO MONITOR.
[2019-06-23 19:35] VITALS: BP 99/50
[2019-06-24 05:06] VITALS: BP 110/60
[2019-06-24 05:08] LABS: HEMATOCRIT 29.2 % (42.0-52.0); HEMOGLOBIN 9.6 gm/dL (14.0-18.0); MCHC 32.8 g/dL (28.0-37.0); MCV 106.6 fL (80.0-100.0); RBC 2.74 mil/uL (4.50-6.00); RDW 17.9 % (10.5-14.5); WBC 3.4 thou/uL (4.0-11.0)
[2019-06-24 05:18] LABS: CALCIUM 8.6 mg/dL (8.5-10.1); CREATININE 1.6 mg/dL (0.7-1.3)
--- NOTE | 2019-06-24 06:34 | NUR ---
ASSUME CARE 1900. PT/VITALS STABLE. INTERMITTENT STERNAL PAIN FROM CPR AND COUGHING. MUCINEX GIVEN TO HELP WITH DECONGESTION. MODERATE TOLERANCE TO ACTIVITY. PROGRESSING WELL WITH POC. NO DISTRESS NOTED THROUGH THE NIGHT. SR ON MONITOR. ASSESSMENT CHARTED. PROGRESSING WELL WITH POC. PLAN IS POSSIBLE DISCHARGE TO REHAB TODAY. WILL CONTINUE TO MONITOR AND FOLLOW WITH POC
[2019-06-24 08:58] VITALS: BP 124/75
[2019-06-24 12:53] VITALS: BP 111/68
[2019-06-24] MEDS ORDERED: IPRAT-ALBUT 0.5-3 ML INH (14:46)
[2019-06-24] MEDS ORDERED: CARDIZEM CD120 MG PO (14:47)
[2019-06-24] MEDS ORDERED: TORSEMIDE20 MG PO (14:48)
[2019-06-24] MEDS ORDERED: SYNTHROID50 MCG PO (14:49)
[2019-06-24] MEDS ORDERED: SOLU-MEDRO125 MG/23 IV PUSH (14:49)
[2019-06-24] MEDS ORDERED: FAMOTIDINE20 MG/2 M2 IV PUSH (14:49)
[2019-06-24] MEDS ORDERED: AUGMENTIN 500-1 EACH PO (15:36)
--- NOTE | 2019-06-24 16:33 | NUR ---
ASSUMMED PT CARE AT APPROXIMATELY 0700. PT A&O X4. ASSESSMENT CHARTED. FALL PRECAUTIONS IN PLACE. PT DENIES HAVING CHEST PAIN. PT STATES HE HAS SOB ON EXERSION. O2 SATS STABLE. PT STATED HE HAD NON-CARDIAC STERNAL CHEST PAIN. PT RECEIVED ANALGESICS. PT STATED ANALGESICS HELPED RELIEVE PAIN. NOTIFIED OF PT NOT HAVING BM IN SEVERAL DAYS. ORDERED NEW ORDERS. NEW MEDS IMPLEMENTED. WILL CONTINUE TO MONITOR PT TO HAVE BM. PT HAD STERLING CATH DC IN AM. BLADDER SCANNED PT DUE TO PT NOT VOIDING AFTER DC OF STERLING CATH. BLADDER SCAN SHOWED PT RETAINING 858 ML OF URINE. NOTIFIED DR. KOTHARI OF URINARY RETENTION. ORDERED TO HAVE STERLING CATH RE-INSERTED. ORDER IMPLEMENTED-STERLING CATH INSERTED. UA SENT TO LAB. PT DISCHARGING UP TO [facility]. PT EDUCATED ABOUT POC. PT STATED UNDERSTANDING AND DENIED HAVING FURTHER QUESTIONS. GAVE REPORT TO 5[facility] RN. RN STATED UNDERSTANDING AND DENIED HAVING FURTHER CONCERNS. PT COMFORTABLE IN BED. PT BELONGINGS SENT C PT. PT DENIES HAVING FURTHER CONCERNS. TELE DC. PICC LINE IN PLACE DUE TO PT RECEIVING IV MEDICATIONS.
[2019-06-24 17:51] LABS: URINE BILIRUBIN NEGATIVE (Negative); URINE BLOOD TRACE (Negative); URINE CLARITY CLEAR; URINE COLOR YELLOW; URINE GLUCOSE-RANDOM* NEGATIVE (Negative); URINE KETONES NEGATIVE (Negative); URINE LEUKOCYTES NEGATIVE (Negative); URINE NITRITE NEGATIVE (Negative); URINE PROTEIN (DIPSTICK) NEGATIVE (Negative); URINE SPECIFIC GRAVITY 1.015 (1.005-1.035); URINE UROBILINOGEN 0.2 E.U./dl (0.2-1.0)
--- NOTE | 2019-06-25 11:22 | EKG ---
[address] [place] [address] ELECTROCARDIOGRAM REPORT Name: OMEGAYOU Room #: 208-P [facility] IN M.R.#: [id number] Admission: 06/19/19 Attend Phys: Indio Mack MD Discharge: 06/24/19 Date of : 43 Report #: [id number] THIS REPORT FOR: //name// [facility] Test Date: 2019-06-24 Test Time: 07:32:55 Pat Name: YOU DUFF Department: Room: 208 P Gender: M Band Director: KAITLYN : 1945 Requested By: Stephan Silverio Order Number: [id number] MD: Enrico Montgomery Measurements Intervals [place] Rate: 73 P: 20 GA: 194 QRS: -41 QRSD: 176 T: 47 QT: 479 QTc: 528 Interpretive Statements Sinus rhythm RBBB and LAFB Compared to ECG 06/23/2019 07:37:40 Left anterior fascicular block now present Electronically Signed On 06-25-2019 11:22:01 TEACHER OF GIFTED STUDENTS by Enrico Montgomery [email or web address] <ELECTRONICALLY SIGNED> By: Enrico Montgomery MD 06/25/19 1122 [id number] [id number] Enrico Montgomery MD /EPI
== END 2019-06-24 17:30 | DRG 208 ==
LOC: ER 08:58 → 2N 12:48 → EROBS 12:48 → 2N 12:48 → EROBS 13:18 → 2N 18:31 → ICU 06-20 10:17 → 2N 06-22 13:03
PROVIDERS: Emergency Medicine; Hospitalist; Internal Medicine; Internal Medicine Pulmonary Disease; ADMIT Hospitalist
PROC: 5A1945Z Respiratory Ventilation, 24-96 Consecutive Hours (ICD-10-PCS; principal; 2019-06-20)
PROC: 05HY33Z Insertion of Infusion Device into Upper Vein, Percutaneous Approach (ICD-10-PCS; principal; 2019-06-20)
DX: J18.9 Pneumonia, unspecified organism (principal); I50.33 Acute on chronic diastolic (congestive) heart failure; J96.01 Acute respiratory failure with hypoxia; I46.9 Cardiac arrest, cause unspecified; J44.0 Chronic obstructive pulmonary disease with (acute) lower respiratory infection; E87.2 Acidosis; N17.9 Acute kidney failure, unspecified; I13.0 Hypertensive heart and chronic kidney disease with heart failure and stage 1 through stage 4 chronic kidney disease, or unspecified chronic kidney disease; G93.1 Anoxic brain damage, not elsewhere classified; E78.00 Pure hypercholesterolemia, unspecified; Z96.659 Presence of unspecified artificial knee joint; Z98.1 Arthrodesis status; E78.5 Hyperlipidemia, unspecified; I25.10 Atherosclerotic heart disease of native coronary artery without angina pectoris; I35.0 Nonrheumatic aortic (valve) stenosis; I34.0 Nonrheumatic mitral (valve) insufficiency; N18.9 Chronic kidney disease, unspecified; J44.9 Chronic obstructive pulmonary disease, unspecified; I73.9 Peripheral vascular disease, unspecified; E87.6 Hypokalemia; I48.0 Paroxysmal atrial fibrillation; K21.9 Gastro-esophageal reflux disease without esophagitis; R00.1 Bradycardia, unspecified; R33.9 Retention of urine, unspecified; D69.6 Thrombocytopenia, unspecified; D64.9 Anemia, unspecified; Z87.891 Personal history of nicotine dependence; I25.2 Old myocardial infarction; Z95.5 Presence of coronary angioplasty implant and graft; Z79.01 Long term (current) use of anticoagulants; Z95.820 Peripheral vascular angioplasty status with implants and grafts; Z82.49 Family history of ischemic heart disease and other diseases of the circulatory system; Z95.828 Presence of other vascular implants and grafts; Z79.899 Other long term (current) drug therapy; Z88.5 Allergy status to narcotic agent; Z88.8 Allergy status to other drugs, medicaments and biological substances
CPT/HCPCS: 10078; 10081; 27000

== ENCOUNTER 2019-06-24 10:02 | Inpatient (IN) | payer OTHER ==
[~2019-06-24] VITALS: Ht 177.8 cm; Wt 89.0 kg
--- NOTE | ~2019-06-24 | H ---
[facility] [place] [address] HISTORY AND PHYSICAL Name: YOU DUFF Room #: 505-P ADM IN M.R.#: [id number] Admission: 06/24/19 Attend Phys: Carlos Patel MD Discharge: Date of : 43 Report #: [id number] THIS REPORT FOR: //name// CC: Reg Patel DATE OF SERVICE: 06/24/2019 HISTORY AND PHYSICAL/POST-ADMISSION PHYSICIAN EVALUATION HISTORY OF PRESENT ILLNESS: This is a 74-year-old male who originally was admitted to [facility] on 06/19/2019, not feeling well with shortness of breath. He was diagnosed with an acute exacerbation of CHF, pneumonia, acute on chronic renal insufficiency. He is to be evaluated by Cardiology and Nephrology. On 06/20/2019, he had bradycardia, developed PEA and had multiple rounds of CPR and was then intubated. He was later able to be extubated, has continued on nasal cannula O2. He is noted to have generalized weakness, debilitation and hypoxic encephalopathy that is improving. He continues on oxygen and was not on oxygen prior to his original admission. He has been admitted now for acute in-hospital inpatient rehabilitation. PAST MEDICAL HISTORY: Includes coronary artery disease with prior stenting in 2004, moderate aortic stenosis, COPD, peripheral arterial disease with right iliac stenting, paroxysmal atrial fibrillation, history of GI bleeding related to gastric AVMs, iron deficiency anemia, remote abdominal aortic aneurysmal stent graft repair. PAST SURGICAL HISTORY: Includes the above stent graft repair. He has had coronary stenting, carotid endarterectomy. Apparently, he had a growth from his throat removed, neck surgery with fusion, back, knee and hand surgeries. HABITS: Past history of tobacco abuse, quit greater than a year ago. Occasional alcohol usage. FAMILY HISTORY: Includes heart disease. SOCIAL HISTORY: The patient has been living at home with his in a house, couple of stairs to enter then all on one level. He was independent with ADLs and shares IADLs. Both, he and his drive. ALLERGIES: OXYCODONE. MEDICATIONS: Please see the full medication listing. REVIEW OF SYSTEMS: He complains of some generalized weakness. He has some sternal discomfort and some generalized swelling. No current chest pain other [facility] [address] [place] [address] HISTORY AND PHYSICAL Name: YOU DUFF Room #: 505-P [facility] [place] [facility].#: [id number] Admission: 06/24/19 Attend Phys: Carlos Patel MD Discharge: Date of : 43 Report #: [id number] than the sternal discomfort, abdominal discomfort. No focal extremity pain complaints. PHYSICAL EXAMINATION: GENERAL: A 74-year-old white male who was seen earlier. The patient is alert, on nasal prong O2. There is a definite latency to his responses, seemed somewhat distractable. He will follow basic 1 step commands. VITAL SIGNS: Last recorded temperature 36.4, pulse 73, respirations 16 and blood pressure 129/72. HEENT: Facies appeared symmetric. CHEST: There is some scattered crackles. He again has some discomfort of his sternal area. CARDIOVASCULAR: Sounded regular rate and rhythm. ABDOMEN: Bowel sounds positive, nontender. GENITOURINARY AND RECTAL: He has Castro catheter. NEUROLOGICAL: He has functional range of motion of the upper and lower extremities. He does have trace edema, no focal calf swelling. Strength is probably grade 3+/5. He has been needing assistance with basic sit to stand. ASSESSMENT: A 74-year-old male with the following problem list: 1. Hypoxic encephalopathy noted to be improving. 2. Medical complexity with generalized debilitation. 3. Acute exacerbation of congestive heart failure. 4. Pulseless electrical activity, status post CPR on 06/20/2019. 5. Pneumonia, possible aspiration. 6. Acute on chronic renal insufficiency. 7. Severe aortic stenosis. 8. Hypertension. 9. Hyperlipidemia. 10. Atrial fibrillation. 11. Gastroesophageal reflux disease. PLAN: The patient has been admitted for acute in-hospital inpatient rehabilitation. From a postadmission physician evaluation perspective, there are no relevant changes since the preadmission screening. Please see the above review of prior and current medical and functional conditions and comorbidities. Please see the patient's previous and current functional status. As far as risk of complications, the patient has multiple medical comorbidities as noted above. Initial plan of care involves the interdisciplinary acute inpatient rehabilitation program. Measurable functional goals would be for him to improve strength, endurance, balance, hopefully wean off oxygen and improved cognition, so that he can return back to the home setting. Prognosis is reasonably good with estimated length of stay probably at least 7-14 days pending progress. Potential barriers would include his above noted multiple medical comorbidities and decreased functional status. [address] [address] HISTORY AND PHYSICAL Name: YOU DUFF Room #: 505-P [facility] [place] M.R.#: [id number] Admission: 06/24/19 Attend Phys: Carlos Patel MD Discharge: Date of : 43 Report #: [id number] The patient meets diagnostic criteria for an acute in-hospital inpatient rehabilitation stay. He meets the medical necessity criteria. We will have the multiple search engine optimization consultant physicians continue to follow. He does have the tolerance for therapies and has appropriate discharge goals back to the home setting. By: 1003 1051 Carlos Patel MD /nt
--- NOTE | ~2019-06-24 | PLAN ---
[facility] [place] [address] REHAB UNIT PLAN OF CARE Name: YOU DUFF Room #: 505-P ADM IN M.R.#: [id number] Admission: 06/24/19 Attend Phys: Carlos Patel MD Discharge: Date of : 43 Report #: [id number] THIS REPORT FOR: //name// CC: Reg Patel DATE OF SERVICE: 06/26/2019 PROGRESS NOTE AND OVERALL PLAN OF CARE SUBJECTIVE: The patient is seen back today in followup. He is in no distress. Last recorded temperature 98, pulse 70, respirations 18, and blood pressure is 129/82. He does have a loose cough. He is on nasal prong O2, 2 liters. He is working in therapies with transfers, min assist. Gait mod assist 25 feet with a standard cane. In occupational therapy, lower body dressing is max assist. He is on a regular diet with thin liquids. Cognitive issues are being further assessed. ASSESSMENT: 1. Hypoxic encephalopathy, noted to be improving. 2. Medical complexity with generalized debilitation. 3. Code blue with pulseless electrical activity, status post CPR, 06/20/2019. 4. Acute exacerbation of congestive heart failure. 5. Pneumonia with possible aspiration. 6. Acute on chronic renal insufficiency. 7. Severe aortic stenosis. 8. Hypertension. 9. Hyperlipidemia. 10. Atrial fibrillation. 11. Gastroesophageal reflux disease. PLAN: The overall plan of care is based on the preadmission screen, post-admission physician evaluation and information garnered from therapy assessments. 1. Estimated length of stay is probably at least 7-14 days. 2. Medical prognosis is reasonably good. 3. Anticipated interventions includes the interdisciplinary acute inpatient rehabilitation program. 4. Anticipated functional outcomes would be for the patient to become modified independent, so that he can return back to the home setting. Goal will be modified independent at least at a walker level versus cane initially. 5. Discharge destination would be back to the home setting where he lives with his . 6. Expected therapy by discipline includes PT and OT and speech 1 hour per day [address] [address] REHAB UNIT PLAN OF CARE Name: YOU DUFF Room #: 505-P [facility] IN M.R.#: [id number] Admission: 06/24/19 Attend Phys: Carlos Patel MD Discharge: Date of : 43 Report #: [id number] each five days a week throughout the duration of the acute inpatient rehabilitation stay. By: 0817 0845 Carlos Patel MD /nt
[~2019-06-24 10:02] MED LIST changes: +CARDIZEM CD 18180 M3 PO; +POTASSIUM20 PO
[2019-06-24] MEDS ORDERED: IPRAT-ALBUT 0.5-3 ML INH (14:46)
[2019-06-24] MEDS ORDERED: CARDIZEM CD120 MG PO (14:47)
[2019-06-24] MEDS ORDERED: TORSEMIDE20 MG PO (14:48)
[2019-06-24] MEDS ORDERED: SOLU-MEDRO125 MG/23 IV PUSH (14:49)
[2019-06-24] MEDS ORDERED: FAMOTIDINE20 MG/2 M2 IV PUSH (14:49)
[2019-06-24] MEDS ORDERED: SYNTHROID50 MCG PO (14:49)
[2019-06-24] MEDS ORDERED: AUGMENTIN 500-1 EACH PO (15:36)
[2019-06-24 18:03] VITALS: BP 138/87
--- NOTE | 2019-06-24 20:23 | NUR ---
PT ADMITTED TO AT 1745 FOR CHF EXACERBATION AND MEDICAL COMPLEXITY AND ON THE MEDICATION LIST. DEBILITY WITH HYPOXIC ENNCEPHALOPATHY. PT LIVES HOME WITH RANCHO HIS S.O. PT WAS CODED AT ICU ON ADMISSION. C/O STERNUM PAIN 12/21. ASSESSMENT COMPLETED. VSS ON 3L OF OXYGEN. LUNG SOUNDS HAS FINE CRACKLES CONTINUE TO BE ON BREATHING TX SCHEDULE. PT HAS HX OF PNEUMONIA WAS ON ZOSYN BUT CHANGE TO AUGMENTIN NOW. HAS RIGHT UPPER PICC LINE TRIPLE LUMEN. CALLED IV TEAM AND LEFT MESSAGE FOR FOLLOW UP. PT STILL WEAK UP WITH MOD ASSIST WITH WALKER TO BATHROOM. LAST BM WAS 06/19/2019. HAD MAG CITRATE THIS AM. HAS MODERATE UNFORMED BM THIS EVENING. FEELS BETTER. HIS GOAL IS TO GET STRONGER AND GO HOME. HAS TRACE EDEMA ON BOTH ARMS AND LEGS. PT HAS STERLING FOR URINARY RETENTION. PT ALERT AND ORIENTED X4 ABLE TO VOICE HER NEEDS. FALL PRECAUTION IN PLACE. PT READ AND SIGNED FALL CONTRACT. SKIN INTACT. FAX MEDICATION LIST TO PHARMACY. NOTIFIED DOCTOR SANIYA THAT PT IS IN ROOM 505 AND OBTAINED T.O TO RESUME HYDROCODONE ORDERED. MED GIVEN. GAVE REPORT TO NIGHT NURSE TO CONTINUE TO MONITOR AND CALL FOR CONSULTS.
--- NOTE | 2019-06-25 03:08 | NUR ---
CALLS FOR ASSIST UP TO BATHROOM FOR UNFORMED BM. STANDBY ASSIST WITH GAITBELT AND WALKER. SMALL UNFORMED BM TWICE. TRIPLE LUMEN PICC LINE PATENT FOR IV MEDS AND BLOOD DRAW
[2019-06-25 03:56] LABS: HEMATOCRIT 29.9 % (42.0-52.0); HEMOGLOBIN 9.7 gm/dL (14.0-18.0); MCH 34.6 pg (26.0-34.0); MCHC 32.4 g/dL (28.0-37.0); MCV 106.6 fL (80.0-100.0); RBC 2.8 mil/uL (4.50-6.00); RDW 17.6 % (10.5-14.5); WBC 3.8 thou/uL (4.0-11.0)
[2019-06-25 03:58] LABS: CALCIUM 8.8 mg/dL (8.5-10.1); CREATININE 1.7 mg/dL (0.7-1.3); POTASSIUM 3.3 mmol/L (3.5-5.1)
--- NOTE | 2019-06-25 18:31 | NUR ---
ASSUMED CARE AT 0700, A&O X 4, NO ACUTE DISTRESS DURING SHIFT. VS STABLE, O2 ON 3L VIA NC. PT C/O CHEST PAIN (NON CARDIAC) AND RECCEIVED PRN NORCO WITH SOME RELIEF. 3LUMEN PICC TO ALEXI STATLOCK AND FLUSHES WELL. PT MODERATE ASSISTANC3 X 1 WITH TRANSFERS AND BR. PT HAS A STERLING, CLEAR YELLOW URINE NOTED, LAST BM 06/25/19. DAILY BG, BED IN LOWEST POSITION, CALL LIGHT WITHIN REACH, WILL CONTINUE TO MONITOR PER POC.
[2019-06-25 20:36] VITALS: BP 129/82
--- NOTE | 2019-06-26 00:47 | NUR ---
PT ALERT AND ORIENTED X 4. STERLING PATENT DRAINING CLEAR YELLOW URINE. 02 ON AT 2L PER NC CONT. RIGHT PICC LINE INTACT AND PATENT. PT C/O NON-CARDIAC CHEST PAIN. HYDROCODONE GIVEN X 2 SO FAR WITH PARTIAL RELIEF VERBALIZED. BED ALARM ON FOR SAFETY. PT CHECKED ON HOURLY ROUNDS.
--- NOTE | 2019-06-26 05:36 | NUR ---
PT WITH CONGESTED COUGH PRODUCTIVE OF SMALL AMT WHITE/PALE YELLOW SPUTUM. COUGH INCREASES CHEST PAIN. STAN MEDRANO, FOOD PHOTOGRAPHER NOTIFIED WITH ORDERS RECEIVED. BINA VALERIO GIVEN ORDERED.
[2019-06-26 08:10] VITALS: BP 131/75
[2019-06-26 08:50] LABS: CALCIUM 8.8 mg/dL (8.5-10.1); CREATININE 1.5 mg/dL (0.7-1.3); MAGNESIUM 1.7 mg/dL (1.8-2.4)
[2019-06-26 08:58] LABS: POTASSIUM 2.5 mmol/L (3.5-5.1)
--- NOTE | 2019-06-26 09:30 | NUR ---
chart review, cm tried to visit with pt in room, out of room. had man yell if you looking for me here i am. i getting ready for breakfast"/armando. offered to visit later after he had breakfast, " no it ok, its not here yet"/pt. intro to cm, team meeting and transition of care. pt preferrs going by minda, " been called a lot of things but that the cleanest"/minda. pt reported " live home with girl friend or main squeeze 2 steps to enter the home and its a story in 06/15 but the upstairs is rented and i don't squeeze that one. have basement where i do work. 12 step with 1 side hand rail and we but up a board on the other side to hold on it if needed. have cane that i use, have a walker that i don't use. manage own medication, drive. had home health with [facility], outpt [facility] october [id number] had window glazier and i am alive."minda. noted pt on o2 and has powell cath " none of these at home, thank you"/minda. will cont following as needed for dc needs.
--- NOTE | 2019-06-26 18:41 | NUR ---
ASSUMED CARE AT 0700, PT A&O X 4, NO ACUTE DISTRESS NOTED. VS STABLE, O2 ON 2L VIA NC. RECEIVED PRN NORCO TWICE DURING SHIFT FOR STERNAM PAIN 8-9 WITH SOME RELIEF. 3LUMEN PICC TO ALEXI, STAT LOCK AND FLUSHES WELL. PT HAD BMP AND MAG DRAWN THIS MORNING, CRITICAL K+ 2.5. [employer]OL[employer] APPRAISER NOTIFIED AND ORDERS GIVEN. TOLERATED THERAPY, MODERATE ASSIST X 1 WITH WALKER. PT NOW ON REG DIET, TOLERATED WELL. NO STRAWS PER ST. PT HAS STERLING R/T RETENTION, CLEAR YELLOW URINE NOTED, LAST BM 06/25/2019. BED IN LOWEST POSITION, CALL LIGHT WITHIN REACH, WILL CONTINUE TO MONITOR PER POC.
[2019-06-26 19:20] VITALS: BP 143/81
--- NOTE | 2019-06-27 01:26 | NUR ---
PT ALERT AND ORIENTED X 4. 02 ON AT 2L PER NC CONT. OCCASIONAL CONGESTED COUGH NOTED. RIGHT PICC LINE INTACT AND PATENT. STERLING PATENT DRAINING CLEAR YELLOW URINE. PT C/O NON-CARDIAC CHEST PAIN. HAD PAIN PILL AROUND DINNER TIME. HAS NOT ASKED FOR PAIN MEDS SO FAR TONIGHT. BED ALARM ON FOR SAFETY. PT APPEARS TO BE SLEEPING ON HOURLY ROUNDS.
[2019-06-27 06:11] LABS: HEMATOCRIT 30.9 % (42.0-52.0); HEMOGLOBIN 10.1 gm/dL (14.0-18.0); MCH 34.6 pg (26.0-34.0); MCHC 32.8 g/dL (28.0-37.0); MCV 105.4 fL (80.0-100.0); PLATELET COUNT 138 thou/uL (150-400); RBC 2.93 mil/uL (4.50-6.00); RDW 17.3 % (10.5-14.5); WBC 2.6 thou/uL (4.0-11.0)
[2019-06-27 06:25] LABS: CALCIUM 8.6 mg/dL (8.5-10.1); CREATININE 1.3 mg/dL (0.7-1.3); MAGNESIUM 1.6 mg/dL (1.8-2.4)
[2019-06-27 06:40] LABS: POTASSIUM 2.5 mmol/L (3.5-5.1)
--- NOTE | 2019-06-27 06:48 | NUR ---
CRITICAL K+ 2.5 THIS MORNING. CALLED TO STAN MEDRANO NP WITH ORDER RECEIVED. WILL REPORT TO DAY NURSE.
[2019-06-27 07:30] VITALS: BP 131/74
[2019-06-27 09:13] LABS: ABSOLUTE NEUTROPHILS 2.4 thou/uL (1.4-8.2); ANISOCYTOSIS 2+; PLATELET ESTIMATE NORMAL
[2019-06-27 09:14] LABS: LARGE PLATELETS FEW; MACROCYTES 1+
--- NOTE | 2019-06-27 14:44 | NUR ---
team meeting, reccomendation: rt dc with hh ( pt, ot, nursing, st and sw). discussed with minda and he want to cont with [facility] at dc.
--- NOTE | 2019-06-27 14:49 | NUR ---
ASSESSMENT CHARTED. PT ALERT AND ORIENTED. PLEASANT AND COOPERATIVE WITH CARES. REPORT HAVING STERNUM PAIN. LIDOCAIN PARCH APPLIED. POTASSIUM AND MAG REPLACED. PARTICIPATED IN PT/OT/SPEECH. NO RESPIRATORY DISTRESS NOTED. WILL CONTINUE TO MONITOR.
[2019-06-27 19:17] VITALS: BP 127/67
--- NOTE | 2019-06-28 03:08 | NUR ---
ASSUMED CARE AT APPROX 1900 EVENING 06/27. PT SITTING UP IN BED AT CHANGE OF SHIFT RESTING AND WATCHING TV. 02 AT 2L PER N/C. PT WITH LOOSE COUGH. STERLING TO DD WITH YELLOW URINE TO BAG. ASSISTED PT UP TO W/C TO HAVE BM IN TOILET. PT TOLERATED WELL. PT NOW BACK TO BED APPEARS TO BE SLEEPING SOUNDLY. BED ALARM ON AND CALL LIGHT IN REACH. WILL CONTINUE TO MONITOR.
[2019-06-28 06:28] LABS: HEMATOCRIT 30.3 % (42.0-52.0); HEMOGLOBIN 10.1 gm/dL (14.0-18.0); MCH 35.3 pg (26.0-34.0); MCHC 33.5 g/dL (28.0-37.0); MCV 105.3 fL (80.0-100.0); PLATELET COUNT 136 thou/uL (150-400); RBC 2.88 mil/uL (4.50-6.00); RDW 17.4 % (10.5-14.5); WBC 3.2 thou/uL (4.0-11.0)
[2019-06-28 06:40] LABS: CALCIUM 8.3 mg/dL (8.5-10.1); CREATININE 1.6 mg/dL (0.7-1.3); MAGNESIUM 1.9 mg/dL (1.8-2.4)
[2019-06-28 06:47] LABS: POTASSIUM 2.6 mmol/L (3.5-5.1)
[2019-06-28 08:59] LABS: ABSOLUTE NEUTROPHILS 2.7 thou/uL (1.4-8.2)
[2019-06-28 09:00] VITALS: BP 128/78
[2019-06-28 09:00] LABS: ANISOCYTOSIS 1+; MACROCYTES 1+
--- NOTE | 2019-06-28 13:29 | NUR ---
DISCHARGE PLANNING. ANTICIPATED DISCHARGE 07/06, PER UNIT CM. DISCHARGE PLAN IS TO HOME WITH HOME HEALTH SERVICES. PATIENT REFERRAL FAXED TO [facility] FOR REVIEW. CALL PLACED TO JEROME, [facility] LIAISON, TO NOTIFY. AWAITING RESPONSE.
--- NOTE | 2019-06-28 14:02 | NUR ---
Patient participated in community reintegration on 06/28/19 with Speech Therapy. Refer to documentation by
--- NOTE | 2019-06-28 15:16 | NUR ---
ASSUMED CARES AT 0700. PT AWKE, ALERT AND ORIENTED*4. C/O STERNAL PAIN 02/21, PAIN MEDICATION ADMINISTERED NEEDED. LIDOCAINE PATCH APPLIED TO STERNUM AREA PER ORDER. VITALS REMAIN STABLE. LS COARSE, O2 2L WITH SATS >95%. NON-PRODUCTIVE COUGH NOTED. PICC LINE ON R UPPER ARM REMAINS INTACT AND ALL THREE PORTS ASPIRATED FOR BLOOD RETURN. STERLING REMAINS INTACT AND PATENT, URINE IS LIGHT YELLOW AND CLEAR. PT UP WITH 1 MOD ASSIST, GB AND W/C AND TOLERATED WELL. Q1H VISUAL CHECKS. CALL LIGHT WITHIN REACH. FALL PRECAUTIONS IN PLACE
--- NOTE | 2019-06-28 15:54 | NUR ---
PATIENT PARTICIPATED IN COMMUNITY REINTEGRATION THIS DATE WITH SPEECH THERAPY, REFER TO ST DOCUMENTATION FOR DETAILS.
[2019-06-28 20:51] VITALS: BP 151/91
--- NOTE | 2019-06-29 02:16 | NUR ---
MAINTAINING PAIN LEVEL OF 7-9 BY TAKING 2 NORCO Q 6 HOURS. APPRECIATES TOWEL ROLL TO STABILIZE DURING COUGHING SPELLS. TOLERATED CLAMPING OF STERLING TUBING FROM 2030 UNTIL 2300 WITH APPROX 400 CC VOLUME. HAS HAD CLAMP ON SINCE MIDNIGHT AND IS STARTING TO FEEL A LITTLE TICKLE, BUT WANTS TO KEEP IT CLAMPED A LITTLE LONGER. DRINKING FLUIDS HE BIRGIT THEY ARE ENCOURAGED. TRIPLE LUMEN PICC LINE PATENT AND USED FOR SOLUMEDROL
--- NOTE | 2019-06-29 03:47 | NUR ---
TOLERATED STERLING BEING CLAMPED 3 AND ONE HALF HOURS
[2019-06-29 06:43] LABS: CALCIUM 8.7 mg/dL (8.5-10.1); CREATININE 1.4 mg/dL (0.7-1.3)
[2019-06-29 06:47] LABS: POTASSIUM 2.9 mmol/L (3.5-5.1)
[2019-06-29 10:38] VITALS: BP 122/74
--- NOTE | 2019-06-29 14:29 | NUR ---
ASSUMED CARES AT 0700. PT AWAKE, ALERT AND ORIENTED*4. C/O STERNAL PAIN 02/21, NORCO ADMINISTERED NEEDED Q6H. LS REMAIN COARSE, PT HAS A PRODUCTIVE COUGH. SATS REMAIN >95% ON RA. PICC LINE ON RIGHT UPPER ARM REMAIN INTACT AND PATENT. POTASSIUM 2.9 THIS AM, ORDERS RECEIVED AND POTASSIUM REPLACED, LABS FOLLOWING 06/30 AM. PT UP WITH 1 MIN ASSIST, GB AND WALKER AND TOLERATED WELL. Q1H VISUAL CHECKS. CALL LIGHT WITHIN REACH. FALL PRECAUTIONS IN PLACE
[2019-06-29 19:17] VITALS: BP 128/72
--- NOTE | 2019-06-30 02:33 | NUR ---
ASSESSED AT START OF SHIFT A&OX4. COARSE LUNG SOUNDS ON ASSESSMENT AND GETS SCHEDULED BX. C/O STERNAL SORENESS WHEN COUGHING USES TOWEL TO HOLD CHEST FOR SUPPORT. NORCO 2 TABS GIVEN THIS SHIFT. LIDOCAINE PATCH REMOVED THIS SHIFT FOLLEY INTACT AND PATENT. TAKES PILLS FINE WITH WATER AND NO STRAWS. FALL PREC IN PLACE AND WILL CONT TO MONITOR TILL EOS.
[2019-06-30 06:02] LABS: CALCIUM 8.5 mg/dL (8.5-10.1); CREATININE 1.6 mg/dL (0.7-1.3); MAGNESIUM 1.6 mg/dL (1.8-2.4); PHOSPHORUS 4.9 mg/dL (2.5-4.9); POTASSIUM 3.5 mmol/L (3.5-5.1)
[2019-06-30 07:15] VITALS: BP 113/69
--- NOTE | 2019-06-30 11:22 | NUR ---
PT CARE ASSUMED AT 0700. PT A&Ox4. PT UP IN DINNING ROOM FOR BREAKFAST AND HAS WORKED WITH PT. CONTINUE TO NOT USE STRAWS. POTASSIUM IS STABLE AGAIN THIS AM. WILL DO ANOTHER TRIAL WITH HIS STERLING AND THEN CONTACT MD IF WE CAN DC. LUNGS STILL SOUND COARSE. PICC LINE PATENT WITH BLOOD RETURN ON BOTH LUMENS. BLOOD SUGAR CHECKS DUE TO SOLUMEDROL. PT WANTS HIS STERLING REMOVED AND FEELS A URGE TO URINATE.
[2019-06-30 19:20] VITALS: BP 133/79
--- NOTE | 2019-06-30 23:55 | NUR ---
PT ALERT AND ORIENTED X 4, FORGETFUL. AMB TO BR WITH WALKER AND ASSIST X 1. RIGHT PICC LINE INTACT AND PATENT. STERLING PATENT DRAINING CLEAR YELLOW URINE. CONGESTED NON-PRODUCTIVE COUGH. PT C/O PAIN IN HIS STERNUM. HYDROCODONE GIVEN ORDERED WITH PARTIAL PAIN RELIEF VERBALIZED. PT RATED PAIN 9/10 BUT ONLY WANTED ONE HYDROCODONE. BED ALARM ON FOR SAFETY. PT CHECKED ON HOURLY ROUNDS.
[2019-07-01 04:56] LABS: CALCIUM 8.7 mg/dL (8.5-10.1); CREATININE 1.5 mg/dL (0.7-1.3); POTASSIUM 3.1 mmol/L (3.5-5.1)
[2019-07-01 08:18] VITALS: BP 132/65
--- NOTE | 2019-07-01 18:27 | NUR ---
ASSUMED CARES AT 0700. REPORTS SLEPT GOOD. PT AWAKE, ALERT AND ORIENTEDX4. FORGETFUL AT TIME, ABLE TO VOID HIS NEEDS. HIS GOALS TO WALK AND HAD STERLING REMOVED. HAD 200CC MANUEL URINE IN STERLING BAG THIS AM. PT IS ON FLOMAX BID SINCE Jun. LABS REVIEWED NA 130, K 3.1, CREATINE 1.[address] BA OBTAINED ORDER TO REMOVE STERLING AND K SUPPLEMENT. MEDS GIVEN. STERLING REMOVED AT 11AM. ENCOURAGED PT TO DRINK AND WILL MONITOR POST VOID. PT TRIED BUT NOT ABLE TO VOID YET. BS [address] BA AND OBTAINED ORDER TO RE INSERT STERLING IF BS ABOUT 500. WILL NOTIFIED ON COMING NURSE TO CONTINUE TO MONITOR. PT C/O STERNAL PAIN 02/21 NORCO ADMINISTERED 1 TABLET Q 4HR. GAVE 2 TABLETS AT 1700. NEXT DOSE WILL BE 11PM TONIGHT. LS REMAIN COARSE, PT HAS A PRODUCTIVE COUGH. SATS REMAIN >95% ON RA. PICC LINE ON RIGHT UPPER ARM REMAIN INTACT AND PATENT. DRESSING CHANGED BY IV TEAM TODAY. PT UP WITH 1 MIN ASSIST, GB AND WALKER AND TOLERATED WELL. PT HAS BEEN UP TO DINNING ROOM FOR MEALS. Princses VICKERS IS HERE WITH PT. Q1H VISUAL CHECKS FOR NEEDS AND SAFETY. CALL LIGHT WITHIN REACH. FALL PRECAUTIONS IN PLACE. WILL GIVE REPORT TO NIGHT NURSE TO CONTINUE TO MONITOR.
[2019-07-01 19:47] VITALS: BP 118/67
--- NOTE | 2019-07-01 23:50 | NUR ---
EVENING VOIDING TRIAL, BLADDER SCAN SHOWS 475 CC AT 2200, UP TO TOILET AT 2330, STILL UNABLE TO VOID. STERLING PLACED WITHOUT INCIDENT YIELDING APPROX 600 CC MANUEL URINE. PLAN NURSE DRAW FROM PATENT PICC LINE AT 0400. APPRECIATES PAIN MED Q 4-6 HOURS FOR CONTANT STERNAL PAIN, USING ROLLED TOWEL PILLOW TO BRACE SELF DURING COUGH
[2019-07-02 05:14] LABS: CALCIUM 8.4 mg/dL (8.5-10.1); CREATININE 1.6 mg/dL (0.7-1.3); POTASSIUM 3.4 mmol/L (3.5-5.1)
[2019-07-02 08:31] VITALS: BP 119/80
--- NOTE | 2019-07-02 10:57 | NUR ---
VASCULAR ACCESS NURSE ROUNDING- THIS PATIENT IS ON 1 IVP MED. RECOMMEND PERIPHERAL IV ACCESS AND DISCUNTINUE PICC IF LINE IS NO LONGER NECESSARY TO DECREASE RISK OF BLOOD STREAM INFECTION
--- NOTE | 2019-07-02 15:27 | NUR ---
ASSUMED CARE AT 0700, PT A&O X 4, NO ACUTE DISTRESS DURING SHIFT. VS STABLE, O2 ON RA. PT UP WITH ASSIST X 1 WITH WALKER, PAIN CONTROLLED WIT PRN NORCO. 3 LUMEN PICC TO ALEXI, STATLOCK AND FLUSHES WELL. DAILY BG, TOLERATES MEDS WHOLE WITH THIN LIQUIDS. STERLING IN PLACE, CLEAR YELLOW/MANUEL URINE NOTED. BED IN LOWEST POSITION, CALL LIGHT WITHIN REACH, WILL CONTINUE TO MONITOR PER POC.
[2019-07-02 20:00] VITALS: BP 126/89
--- NOTE | 2019-07-03 02:04 | NUR ---
PT ASSESSMENT DONE AND VSS. MEDS GIVEN AND WELL TOLERATED. PT STATED PAIN LEVEL IS A 9, NORCO X [address]IVEN[address] F[address] PRECAUTIONS IN PLACE. SLEEPING WELL. HOURLY ROUNDING. CALL LIGHT IN REACH. WILL CONTINUE TO MONITOR.
[2019-07-03 06:52] LABS: CALCIUM 8.8 mg/dL (8.5-10.1); CREATININE 1.7 mg/dL (0.7-1.3); PHOSPHORUS 5.1 mg/dL (2.5-4.9); POTASSIUM 3.1 mmol/L (3.5-5.1)
[2019-07-03 08:00] VITALS: BP 140/93
--- NOTE | 2019-07-03 19:00 | NUR ---
ASSUMED CARE AT 0700, PT A&O X 4 ON RA. ABLE TO VOICE HIS NEEDS. PT UP WITH ASSIST X 1 WITH WALKER. PT HAS BEEN UP TO DINNING ROOM FOR MEALS. HAD GOOD APPETITE. STILL C/O PAIN ON STERNUM RATES PAIN 8-9 OUT OF 10. TOOK 2 TABLETS OF NORCO THIS AM, FEELS DROWSY. GOALS TODAY TOOK 1 AT THE TIME AND FEELS PAIN IS CONTROLLED 3 LUMEN PICC TO ALEXI, STATLOCK AND FLUSHES WELL. CONTINUE TO GIVE METHYPREDNISONE ORDERED. DAILY BG, TOLERATES MEDS WHOLE WITH THIN LIQUIDS. STERLING IN PLACE, CLEAR YELLOW/MANUEL URINE HAD 300CC OUT THIS SHIFT. REASSESSMENT PER CHART. LUNG SOUND COARSE USUAL. CONTINUE WITH BREATHING TX. PT UP AND PARTICIPATED WELL WITH THERAPISTS TODAY. BED IN LOWEST POSITION, CALL LIGHT WITHIN REACH, GAVE REPORT TO NIGHT NURSE TO CONTINUE TO MONITOR.
[2019-07-03 19:02] VITALS: BP 153/89
--- NOTE | 2019-07-03 23:56 | NUR ---
PT ASSESSMENT DONE AND VSS. MEDS GIVEN AND WELL TOLERATED. FALL PRECAUTIONS IN PLACE. SLEEPING ON/OFF. HOURLY ROUNDING, CALL LIGHT IN REACH. WILL CONTINUE TO MONITOR.
[2019-07-04 03:43] LABS: CALCIUM 8.7 mg/dL (8.5-10.1); CREATININE 1.9 mg/dL (0.7-1.3); PHOSPHORUS 4.9 mg/dL (2.5-4.9); POTASSIUM 3.2 mmol/L (3.5-5.1)
[2019-07-04 08:00] VITALS: BP 140/91
--- NOTE | 2019-07-04 12:43 | NUR ---
Nutrition: pt admitted with medical complexity, general debility to rehab unit. Seen for LOS. Pt w/ variable po, 50-100% of meals. Current weight up approx. 15# from reported usual. CHF and on 2 diuretics. Pt orders meals as desired and noticed he ordered a very large lunch today. Enjoys the food on regular diet. States he avoids salt at home. May consider 2 gm Na+ diet order. Low nutrition risk.
--- NOTE | 2019-07-04 13:00 | NUR ---
team meeting, recommendation: outpt neuropysch. still needs powell. no drive until cleared by md, needs assistance with bills and pills. has cane and walker already. with hh ( pt, ot, st, nursing, and sw).
--- NOTE | 2019-07-04 16:17 | NUR ---
LABS REVIEWED AND NOTIFIED DR. BA THAT PT K 3.2. CREATINE 1.9. ADJUST DIURETIC THIS AM. NEW CHEST XRAY FOR SOB BY YEFRI, [facility]. NOTIFIED DR. FOLEY. HE WILL ORDER IV LASIX ONE TIME. WILL CONTINUE TO MONITOR. SHIFT NOTE: ASSUMED CARE AT 0700, REPORTS SLEPT GOOD LAST NIGHTPT A&O X 4 ON RA. ABLE TO VOICE HIS NEEDS. PT UP WITH ASSIST X 1 WITH WALKER. PT HAS BEEN UP TO DINNING ROOM FOR MEALS. HAD GOOD APPETITE. STILL C/O PAIN ON STERNUM RATES PAIN 8-9 OUT OF 10. PRN NORCO GIVEN PER REQUEST. PICC TO ALEXI, STATLOCK AND FLUSHES WELL. CONTINUE TO GIVE METHYPREDNISONE ORDERED THIS AM. DAILY BG, TOLERATES MEDS WHOLE WITH THIN LIQUIDS. STERLING IN PLACE, CLEAR YELLOW/MANUEL URINE HAD 100 OUT THIS SHIFT. ENCOURAGED PT TO DRINK MORE FLUID. DEMONSTRATED HOW TO CHANGE STERLING BAG TO LEG BAG AND CONTINUE TO REINFORCE EDUCATION. PT WILL BE DISCHARGE ON THIS WEDNESDAY. REASSESSMENT PER CHART. LUNG SOUND CRACKLES NOTED. EDEMA BLE, AQUILINO HOSE IN PLACE. CONTINUE WITH BREATHING TX. PT UP AND PARTICIPATED WELL WITH THERAPISTS TODAY. BED IN LOWEST POSITION, CALL LIGHT WITHIN REACH. CHECK FREQUENTLY FOR NEEDS AND SAFETY.
[2019-07-04 19:24] VITALS: BP 146/89
--- NOTE | 2019-07-05 01:15 | NUR ---
PT ALERT AND ORIENTED X 4. STERLING PATENT DRAINING ADEQUATE AMTS CLEAR MANUEL URINE. RIGHT PICC LINE INTACT. PT C/O PAIN IN HIS STERNUM. HYDROCODONE GIVEN ORDERED AND PT SLEEPING UPON REASSESSMENT. CONGESTED NON-PRODUCTIVE COUGH NOTED. LUNGS COARSE. BED ALARM ON FOR SAFETY. PT APPEARS TO BE SLEEPING ON HOURLY ROUNDS.
[2019-07-05 06:38] LABS: CALCIUM 8.6 mg/dL (8.5-10.1); CREATININE 2.3 mg/dL (0.7-1.3); PHOSPHORUS 5.2 mg/dL (2.5-4.9)
[2019-07-05 10:12] VITALS: BP 110/73
--- NOTE | 2019-07-05 12:10 | NUR ---
DISCHARGE ANTICIPATED WEDNESDAY, PER UNIT CM. HOME WITH HOME HEALTH SERVICES. PATIENT REFERRAL FAXED TO [facility]. CALL PLACED TO ALEE CANO LIAISON. REFERRAL RECEIVED AND IS ACCEPTING OF PATIENT AT DISCHARGE.
--- NOTE | 2019-07-05 13:00 | NUR ---
cm notified by 5n team that pt had change in medical changes and going down to acute hospital. bedside nurse to notify sig other omega. cm spoke with omega via phone call, yes i know you got the message and he moving back to hospital thanks for returning my call about dcp, i knew he was not ready to dc from rehab yet"/soyna. will cont following as needed for dc needs.
[2019-07-05 13:05] VITALS: BP 127/75
[2019-07-05 13:44] LABS: BE(vivo) 9.3 mmol/L (-2 to +3); HCO3 32.7 mmol/L (22.0-26.0); PCO2 39.9 mmHg (35.0-45.0); PO2 85.1 mmHg (80.0-100.0); pH 7.532 (7.360-7.450); sO2 97.3 % (92.0-98.0)
--- NOTE | 2019-07-05 14:05 | NUR ---
ASSUMED CARES AT 0700. PT AWAKE, ALERT AND ORIENTED*4. C/O MILD STERNUM PAIN. HR ELEVATED THIS AM >100, SATS 88-92% ON RA, 99% ON 2L OXYGEN. HOB ELEVATED > 45DEGREES. PT C/O SOB WITH EXERCION, LS COARSE AND "WET", PT HAS A HACKING, NON-PRODUCTIVE COUGH. EDEMA INCREASED IN BLE. ABDOMEN DISTENDED. STERLING REMAINS INTACT AND PATENT, URINE OUTPUT ZERO BETWEEN 0800 AND 1200, STERLING FLUSHED AND BLADDER SCANNED (0). NEPHROLOGY, CARDIOLOGY AND PULMONOLOGY CONSULTED. ORDERS RECEIVED TO TRANSFER PT TO CCU ROOM 201. REPORT GIVEN TO RECEIVING RN AND PHYSICIANS NOTIFIED.
[2019-07-05] MEDS ORDERED: ASPERCREME1 EACH TOP (16:36)
[2019-07-05] MEDS ORDERED: TESSALON PERLE100 M1 PO (16:37)
[2019-07-05] MEDS ORDERED: FUROSEMIDE40 MG/4 ML IV PUSH (16:38)
[2019-07-05] MEDS ORDERED: MUCUS RELIEF600 M1 PO (16:40)
[2019-07-05] MEDS ORDERED: NORCO 5-325 TA1 EAC1 PO ×2 (16:41)
[2019-07-05] MEDS ORDERED: MAGNESIUM250 M1 PO (16:42)
[2019-07-05] MEDS ORDERED: SPIRONOLACT/HC1 EACH PO (16:43)
[2019-07-05] MEDS ORDERED: MIRALAX119 GM PO (16:43)
--- NOTE | 2019-07-06 12:46 | HC ---
[facility] [place] [address] CONSULTATION Name: YOU DUFF Room #: 505-P [facility] IN M.R.#: [id number] Admission: 06/24/19 Attend Phys: Carlos Patel MD Discharge: 07/05/19 Date of : 41 Report #: [id number] THIS REPORT FOR: //name// CC: Reg Benavidez Carlos Patel DATE OF SERVICE: 07/02/2019 AGE: 74. ATTENDING PHYSICIAN: Carlos Patel MD MARKETING DEVELOPMENT SPECIALIST: Mauricio Panda, PhD CLINICAL PRESENTATION: The patient is a 74-year-old male admitted to the rehabilitation unit at [facility] for comprehensive inpatient rehabilitation program. He was initially diagnosed with an acute exacerbation of congestive heart failure, pneumonia and acute on chronic renal insufficiency. He developed bradycardia and developed a PEA with multiple rounds of CPR and intubation. His diagnostic assessment on admission to the Rehabilitation Unit was hypoxic encephalopathy, noted to be improving, medical complexity with generalized debility, acute exacerbation of congestive heart failure, pulse less electrical activity, status post CPR on 06/20/2019, pneumonia, possible aspiration, acute on chronic renal insufficiency, severe aortic stenosis, hypertension, hyperlipidemia, atrial fibrillation, and gastroesophageal reflux disease. A complete description of his medical condition and history along with medications can be found in his medical record. Neuropsychological consultation was requested to provide assistance in the assessment of cognitive and emotional status and to provide recommendations and services. Prior to this most recent admission, he was living with his in their home. The patient is reported to have been independent with instrumental activities of daily living. He was doing occasional driving. He is a high school graduate. 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 The patient has 4 biological and 3 stepchildren. He does not report a prior history of treatment for depression or anxiety. He is reported to have 2 alcoholic beverages a day, but he nor his say that the alcohol use is excessive. TECHNIQUES UTILIZED: Clinical interview, review of medical records, staff consultation and behavioral observation, family interview - spouse, Mini Mental Status Exam-2 standard version, clock drawing, and brief verbal fluency assessment (letter and category). [facility] [address] [place] [address] CONSULTATION Name: YOU DUFF Room #: 505-P [facility] IN .R.#: [id number] Admission: 06/24/19 Attend Phys: Carlos Patel MD Discharge: 07/05/19 Date of : 41 Report #: [id number] EXAMINATION FINDINGS: The patient describes his symptoms to include difficulty with memory, word finding and concentration. He also describes feelings of tiredness and fatigue and difficulty with sleep. He does not report anxiety or depression. He indicates his appetite is normal. The patient does report pain in his chest as a result of the CPR treatment. He does not report auditory or visual hallucinations. There was no evidence of aphasia. His performance on the MMSE-2 brief version was in the mild range of impairment with a raw score of 13/16, which is a T score 37 and percentile rank of 10. He was 3/3 for initial registration, 5/5 for orientation to time, 4/[address] and 1/3 for immediate recall of 3 items after a brief time delay and distraction. Performance on the MMSE-2 standard version improved to a raw score of 26 of 30, which is a T score of 47 and percentile rank of 38. He was 5/5 for serial sevens, 2/2 for naming, 1/1 for repetition. He was 3/3 for auditory comprehension. He could read and follow a single command and write a sentence. The patient was unable to copy a simple geometric design. Difficulty with visual spatial construction was moderate to severe. Brief assessment of letter fluency was in the borderline range at the 4th percentile. Brief category fluency was less than 1% with a T score of 23 and raw score of 7. The patient is alert and oriented. However, he is presenting with deficits in memory and verbal fluency along with visual spatial construction. These deficits can be seen in hypoxic brain injury. 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 RECOMMENDATIONS: The patient will benefit from a followup neuropsychological evaluation to clarify the severity of cognitive deficits. While he is alert and oriented, higher level executive functioning appears to be showing impairment. Speech therapy will also be of benefit to assist in compensatory strategies. His will need to provide additional assistance in the management of medication and finances. Driving should be discontinued following a more thorough evaluation. Thank you very much for allowing me to provide the consultation on this patient. <ELECTRONICALLY SIGNED> By: Mauricio Panda, PhD 07/06/19 1246 [id number] Mauricio Panda, PhD /nt
== END 2019-07-05 14:39 | disposition short-term general hospital (02) | DRG 91 ==
LOC: ENTRNSPT 07-05 14:26 → EDTRNSPTSTS 07-05 14:28
PROVIDERS: Hospitalist; Internal Medicine; Internal Medicine Pulmonary Disease; Nurse Practitioner; ADMIT Physical Medicine & Rehabilitation
DX: G93.1 Anoxic brain damage, not elsewhere classified (principal); J69.0 Pneumonitis due to inhalation of food and vomit; I50.23 Acute on chronic systolic (congestive) heart failure; I13.0 Hypertensive heart and chronic kidney disease with heart failure and stage 1 through stage 4 chronic kidney disease, or unspecified chronic kidney disease; N17.9 Acute kidney failure, unspecified; R53.81 Other malaise; N18.9 Chronic kidney disease, unspecified; E78.5 Hyperlipidemia, unspecified; I48.91 Unspecified atrial fibrillation; K21.9 Gastro-esophageal reflux disease without esophagitis; I25.2 Old myocardial infarction; I25.10 Atherosclerotic heart disease of native coronary artery without angina pectoris; I48.0 Paroxysmal atrial fibrillation; J44.9 Chronic obstructive pulmonary disease, unspecified
CPT/HCPCS: 10112

== ENCOUNTER 2019-07-05 15:12 | Inpatient (IN) | payer OTHER ==
[~2019-07-05] VITALS: Ht 177.8 cm; Wt 82.4 kg
[2019-07-05 14:49] VITALS: BP 121/84
--- NOTE | 2019-07-05 15:00 | NUR ---
Pt admitted to the ICU from Rehab unit. Pt is alert and oriented. O2 at 2 liters nasal cannula. Coarse breath sounds. PICC line right upper arm. Castro to dependent drainage with small amt of concentrated arsh urine.
[~2019-07-05 15:12] MED LIST changes: +AUGMENTIN 500-1 EACH PO; +FAMOTIDINE20 MG/2 M2 IV PUSH; +IPRAT-ALBUT 0.5-3 ML INH; +SOLU-MEDRO125 MG/23 IV PUSH; +SYNTHROID50 MCG PO
[2019-07-05] MEDS ORDERED: ASPERCREME1 EACH TOP (16:36)
[2019-07-05] MEDS ORDERED: TESSALON PERLE100 M1 PO (16:37)
[2019-07-05] MEDS ORDERED: FUROSEMIDE40 MG/4 ML IV PUSH (16:38)
[2019-07-05] MEDS ORDERED: MUCUS RELIEF600 M1 PO (16:40)
--- NOTE | 2019-07-05 16:40 | NUR ---
Talked with Dr Silverio. Status report given. Admission orders received.
[2019-07-05] MEDS ORDERED: NORCO 5-325 TA1 EAC1 PO ×2 (16:41)
[2019-07-05] MEDS ORDERED: MAGNESIUM250 M1 PO (16:42)
[2019-07-05] MEDS ORDERED: MIRALAX119 GM PO (16:43)
[2019-07-05] MEDS ORDERED: SPIRONOLACT/HC1 EACH PO (16:43)
[2019-07-05 18:31] LABS: CALCIUM 9.1 mg/dL (8.5-10.1); CREATININE 2.8 mg/dL (0.7-1.3); POTASSIUM 4.6 mmol/L (3.5-5.1)
--- NOTE | 2019-07-05 19:15 | NUR ---
Report given to oncoming RN. Lasix drip is infusing at 10 mg/hr via PICC line. Continues to have coarse breath sounds audible without stethescope.
[2019-07-05 20:00] VITALS: BP 129/87
[2019-07-06] VITALS (7 sets, daily range): BP systolic 112–131; BP diastolic 73–89
[2019-07-06 05:15] LABS: HEMATOCRIT 33.1 % (42.0-52.0); HEMOGLOBIN 10.7 gm/dL (14.0-18.0); MCH 34.3 pg (26.0-34.0); MCHC 32.4 g/dL (28.0-37.0); MCV 105.7 fL (80.0-100.0); RBC 3.13 mil/uL (4.50-6.00); RDW 17.5 % (10.5-14.5)
[2019-07-06 05:17] LABS: CALCIUM 8.9 mg/dL (8.5-10.1); CREATININE 2.9 mg/dL (0.7-1.3); POTASSIUM 5.1 mmol/L (3.5-5.1)
--- NOTE | 2019-07-06 08:39 | EKG ---
[place] [address] [facility] [facility] [place] [address] ELECTROCARDIOGRAM REPORT Name: YOU DUFF Room #: 201-P ADM IN M.R.#: [id number] Admission: 07/05/19 Attend Phys: Kori Bee Discharge: Date of : 41 Report #: [id number] THIS REPORT FOR: //name// [facility] Test Date: 2019-07-05 Test Time: 16:53:03 Pat Name: YOU DUFF Department: Room: 201 P Gender: M Instructional Interventionist: Luis A CASAS : 1945 Requested By: Stephan Silverio Order Number: [id number] MD: Stephan Silverio Measurements Intervals [place] Rate: 97 P: 0 KS: 108 QRS: -59 QRSD: 167 T: 20 QT: 418 QTc: 531 Interpretive Statements Sinus rhythm RBBB and LAFB Compared to ECG 06/24/2019 07:32:55 no significant change was found Electronically Signed On 07-06-2019 8:39:04 RISK LEAD by Stephan Silverio [email or web address] <ELECTRONICALLY SIGNED> By: Stephan Silverio MD, [facility] 07/06/19 0839 [id number] Stephan Silverio MD, FAC /EPI
--- NOTE | 2019-07-06 08:47 | EKG ---
[address] [employer] [address] ELECTROCARDIOGRAM REPORT Name: YOU DUFF Room #: 201-P ADM IN M.R.#: [id number] Admission: 07/05/19 Attend Phys: Kori Bee Discharge: Date of : 41 Report #: [id number] THIS REPORT FOR: //name// [facility] Test Date: 2019-07-06 Test Time: 07:55:56 Pat Name: YOU DUFF Department: Room: 201 P Gender: M Car Salter: DIANA : 1945 Requested By: Stephan Silverio Order Number: [id number] MD: Stephan Silverio Measurements Intervals [place] Rate: 100 P: 0 CA: 128 QRS: -93 QRSD: 175 T: 30 QT: 414 QTc: 534 Interpretive Statements Sinus tachycardia RBBB and LAFB Compared to ECG 06/24/2019 07:32:55 No significant change was found Electronically Signed On 07-06-2019 8:46:31 AUTOMOTIVE COLLISION ESTIMATOR by Stephan Silverio [email or web address] <ELECTRONICALLY SIGNED> By: Stephan Silverio MD, [facility] 07/06/19 [phone] Stephan Silverio MD, FACC /EPI
--- NOTE | 2019-07-06 12:00 | NUR ---
AAOX4. AT BEDSIDE. DR. LAM HERE. SOA WITH MINIMAL ACTIVITY. SUCTION SETUP PLACED IN ROOM. COARSE LUNG SOUNDS PERSIST; LASIX DRIP IN PROCESS. KIDNEY LABS, OUTPUT NOTED. 1500CC FLUID RESTRICTION. GIVEN HEART FAILURE PACKET PER DR. LAM. WILL CONTINUE TO FOLLOW CLOSELY.
--- NOTE | 2019-07-06 13:32 | NUR ---
Case opened to follow for dc planning. Pt known to cm from previous CCU stay prior to going to 5N acute rehab. The pt was readmitted to acute care for CHF/ARF. He is on a lasix gtt. Pt's sign other Moni is at bedside. Will ask for therapy evals and 5N to follow for possible return to rehab pending his progress. The pt lives with his sign other. They are able to stay on the main level of their home. He has a rwalker for home use. Case discussed with the care team.
[2019-07-06 20:41] LABS: BE(vivo) 5.7 mmol/L (-2 to +3); HCO3 28.7 mmol/L (22.0-26.0); PCO2 35.8 mmHg (35.0-45.0); PO2 79.9 mmHg (80.0-100.0); pH 7.522 (7.360-7.450); sO2 96.9 % (92.0-98.0)
[2019-07-07] VITALS (66 sets, daily range): BP systolic 101–185; BP diastolic 19–155
--- NOTE | 2019-07-07 00:09 | NUR ---
1999: Upon assessment pt with uninteligible speech, work of breathing increased and pt appears to be hallucinating. ABG obtained per orders and Niurka White NP aware of assessment findings. Attempted to place a BIPAP as the patient said he would try anything to be able to breathe. Expressing he "needs help & can't breathe." Pt did not tolerate BIPAP at all. Pt then given Narcan per orders which did seem to help patient to be awake, follow commands and clear airway. Work of breathing did seem to become easier for some time. 2129: Dr. Blood notified of pt's increased wet lung sounds, difficulty breathing and inadequate diuresing with lasix gtt. Marginal UOP noted. Castro irrigated for patency. No orders received at this time. 2299: Pt again hallucinating, attempting to tri-pod in the bed. Pt appears panicked and states he is not going to make it. Narcan given again with little effect. Niurka White NP make aware and plans to come see pt. Previously discussed with pt possible need to place ETT to which pt agrees. at bedside and updated on POC as well.
[2019-07-07 03:11] LABS: BE(vivo) 5.6 mmol/L (-2 to +3); HCO3 28.6 mmol/L (22.0-26.0); PCO2 35.8 mmHg (35.0-45.0); PO2 80.3 mmHg (80.0-100.0); sO2 96.9 % (92.0-98.0)
[2019-07-07 05:09] LABS: HEMOGLOBIN 10.1 gm/dL (14.0-18.0); RDW 17.7 % (10.5-14.5)
[2019-07-07 05:12] LABS: HEMATOCRIT 30.8 % (42.0-52.0); MCH 34.5 pg (26.0-34.0); MCHC 32.8 g/dL (28.0-37.0); MCV 105.4 fL (80.0-100.0); RBC 2.92 mil/uL (4.50-6.00)
[2019-07-07 05:28] LABS: CALCIUM 8.7 mg/dL (8.5-10.1); CREATININE 3.7 mg/dL (0.7-1.3); PHOSPHORUS 6.8 mg/dL (2.5-4.9); POTASSIUM 5.1 mmol/L (3.5-5.1)
--- NOTE | 2019-07-07 05:58 | NUR ---
Pt continues to have trouble clearing airway and appears uncomfortable and SOA. Remains confused and pulling at lines and hallucinating. Does not safely take PO as he is unable to follow instructions. Order to move patient to ICU. Report given and belongings packed to go to room 246.
--- NOTE | 2019-07-07 06:20 | NUR ---
Pt arrived ICU, he is being transfered her due RF and Respiratory distress. He is restless and hallucinated. His lung is very coarse t/o lung filed. RR in 30's, O2 sat 96% on 3 liters. ABD is very distended, drum sound like with percussion. Denies of any tenderness. He is very swelling, not making any urine eventhough he is on lasix gtt. Flushed powell per sterile technique w/o any difficulty. Will notify regarding above.
--- NOTE | 2019-07-07 07:00 | NUR ---
rounded on pt, spoke with his and plan to do emergent CRRT on pt. Consent signed by his daughter who is next of kin.
--- NOTE | 2019-07-07 07:39 | NUR ---
SPOKE W RE:NEED FOR INTUBATION. PT WET,COARSE,STRUGGLING.PT HALLUCINATING.SMILES WHEN NAME CALLED.ON HIS WAY IN.FAMILY NOT IN WAITING ROOM TO UPDATE.PLAN FOR EMERGENT DIALYSIS,PROB SLED X 48HRS.MESSAGE LEFT Aaron BRAVO FROM [facility]. (NOT IN YET).LAN ENGINEER ALSO INFORMED OF NEED.--VW
--- NOTE | 2019-07-07 08:47 | NUR ---
IN.SPOKE W FAMILY (AT BEDSIDE).WILL TRY PRECEDEX PER .--VW
[2019-07-07 11:31] LABS: HCO3 29.4 mmol/L (22.0-26.0); PCO2 42.6 mmHg (35.0-45.0); PO2 160.9 mmHg (80.0-100.0); pH 7.457 (7.360-7.450); sO2 99.1 % (92.0-98.0)
[2019-07-07 12:44] LABS: BE(vivo) 5.8 mmol/L (-2 to +3); HCO3 30.2 mmol/L (22.0-26.0); PCO2 43.6 mmHg (35.0-45.0); PO2 168.5 mmHg (80.0-100.0); pH 7.459 (7.360-7.450); sO2 99.2 % (92.0-98.0)
--- NOTE | 2019-07-07 16:33 | NUR ---
TRANSFER TO ICU 07/06 WITH MULTI SYSTEM FAILURE. BRONCH AND INTUBATION AROUND 1100, TRIED PRECEDEX GTT AND NOW ON LOW DOSE PROPOFOL WITH VENT. TO IR AFTER INTUBATION FOR TEMP DIALYSIS CATH AND PLANS TO TO CRRT. S.O. AND DTR HERE TODAY AND PHYSICIANS HAVE COMMUNICATED WITH THEM ON GOING.
--- NOTE | 2019-07-07 19:43 | NUR ---
Care assumed at 1915. Pt awake on vent, waving at staff to say "hi", c/o of lower back and sacral pain "mild". Precedex increased from 0.4 mcg/kg/min to 0.7 mcg/kg/min for pt comfort. Pt on CRRT, tolerating well, not requiring any vasopressors at this time.
[2019-07-08] VITALS (86 sets, daily range): BP systolic 79–170; BP diastolic 47–136
[2019-07-08 05:41] LABS: BE(vivo) 1.9 mmol/L (-2 to +3); HCO3 27.1 mmol/L (22.0-26.0); PO2 150.2 mmHg (80.0-100.0); pH 7.398 (7.360-7.450); sO2 98.9 % (92.0-98.0)
[2019-07-08 05:44] LABS: ALBUMIN 2.6 g/dL (3.4-5.0); CALCIUM 8.7 mg/dL (8.5-10.1); PHOSPHORUS 4.4 mg/dL (2.5-4.9); POTASSIUM 3.9 mmol/L (3.5-5.1)
[2019-07-08 05:45] LABS: CREATININE 2.1 mg/dL (0.7-1.3)
[2019-07-08 05:49] LABS: HEMATOCRIT 31.3 % (42.0-52.0); HEMOGLOBIN 10.3 gm/dL (14.0-18.0); MCH 34.8 pg (26.0-34.0); MCHC 32.8 g/dL (28.0-37.0); MCV 106.2 fL (80.0-100.0); RBC 2.94 mil/uL (4.50-6.00); RDW 17.7 % (10.5-14.5); WBC 12.5 thou/uL (4.0-11.0)
--- NOTE | 2019-07-08 06:02 | NUR ---
Pt slowly progressing toward goals. Tolerating CRRT well; no vasopressors needed to maintain MAP > 60, monitor remains sinus rhythm, sinus stuart with rates 58 to 74. FiO2 titrated down to 40% from 50%. Abdomen remains distended and firm, bowel sounds tympanic and hypoactive. Minimal brown green drainage from OG. Urine output has been decreasing this morning; initially was 20-40 cc/hr but now consistently at 20 cc/hr. 1748 cc uf from CRRT this shift. Pt lightly sedated with Precedex at 1 mcg/kg/min.
--- NOTE | 2019-07-08 10:54 | EKG ---
[address] [place] [address] ELECTROCARDIOGRAM REPORT Name: YOU DUFF Room #: 246-P ADM IN M.R.#: [id number] Admission: 07/05/19 Attend Phys: Kori Bee Discharge: Date of : 41 Report #: [id number] THIS REPORT FOR: //name// [facility] Test Date: 2019-07-08 Test Time: 07:18:25 Pat Name: YOU DUFF Department: Room: 246 P Gender: M Pocketbook Maker: KAITLYN : 1945 Requested By: Stephan Silverio Order Number: [id number] MD: Weston Sommer Measurements Intervals [place] Rate: 60 P: LA: QRS: -24 QRSD: 184 T: 259 QT: 618 QTc: 618 Interpretive Statements Atrial fibrillation Right bundle branch block Compared to ECG 07/06/2019 07:55:56 Sinus tachycardia no longer present Left anterior fascicular block no longer present Electronically Signed On 07-08-2019 10:53:22 EDGE DRUMMER by Weston Sommer [email or web address] <ELECTRONICALLY SIGNED> By: Weston Sommer MD 07/08/19 1053 D: 01/717 7 Weston Sommer MD /CHIKIS
[2019-07-08 17:22] LABS: CALCIUM 9.1 mg/dL (8.5-10.1); CREATININE 1.4 mg/dL (0.7-1.3); POTASSIUM 3.7 mmol/L (3.5-5.1)
--- NOTE | 2019-07-08 19:17 | NUR ---
PT CONTINUES ON CRRT TODAY. TOLERATING WELL. REPEAT LABS CALLED TO DR CASH THIS EVENING AND PT TO REMAIN ON CRRT OVERNIGHT. BLOOD CULTURE CAME BACK + FOR GRAM +COCCI. RESULT GIVEN TO DR. GOLDSTEIN'S DAUGHTER AND SIGNIFICANT OTHER AT BEDSIDE AND UPDATED THROUGHOUT THE DAY TODAY.
[2019-07-09] VITALS (86 sets, daily range): BP systolic 51–127; BP diastolic 14–104
--- NOTE | 2019-07-09 00:21 | NUR ---
PT STARTED ON LEVOPHED AT 2200 DURING THE NIGHT. BP BEFORE LEVOPHED STARTED 79/47. PT CURRENTLY ON CRRT. WILL CONTINUE TO MONITOR.
--- NOTE | 2019-07-09 05:44 | NUR ---
ABLE TO FOLLOW COMMANDS WHILE ON PRECEDEX DRIP. GETS RESTLESS AT TIMES. HYPOTHERMIC, YANNA HUGGER PLACED ON PATIENT. NO APPARENT PAIN. ON LEVOPHED FOR BP SUPPORT. TOLERATING VENT SETTINGS. NG IN PLACE, OUTPUT NOTED. CRRT STILL ONGOING. WILL CONTINUE TO MONITOR.
[2019-07-09 05:48] LABS: HEMATOCRIT 40.3 % (42.0-52.0); MCH 34.3 pg (26.0-34.0); MCHC 32.3 g/dL (28.0-37.0); MCV 106.3 fL (80.0-100.0); RBC 3.79 mil/uL (4.50-6.00); RDW 17.6 % (10.5-14.5); WBC 20.7 thou/uL (4.0-11.0)
[2019-07-09 05:59] LABS: ALBUMIN 2.5 g/dL (3.4-5.0); CALCIUM 9.5 mg/dL (8.5-10.1); CREATININE 1.3 mg/dL (0.7-1.3); PHOSPHORUS 2.8 mg/dL (2.5-4.9); POTASSIUM 4.1 mmol/L (3.5-5.1)
--- NOTE | 2019-07-09 11:25 | NUR ---
Orders to DC SLED received from Dr Vasquez. Blood returned and pt disconnected from the dilysis machine. Dialysis nurse Van communicated by phone that she would be in to take care of the dialysis machine. Limbs of the dilaysis catheter flushed with saline and pressure cap placed on each limb of dialysis catheter and limbs clamped. Pt awake now and [place]. Precedex resumed.
--- NOTE | 2019-07-09 18:35 | NUR ---
Pt had Jean garcia (warming blanket) on at start of shift (see ICU vitals for pt temps). Warming blanket was shut off when pt began running elevated temperature. Extra blankets removed, fan turned on and room temperature adjusted. Temperature continued to increase and ice bags to axilla were added. Dr Singleton notified of positive sepsis screen and temperature elevation. Reviewd current antibiotics and hemodynamics. No medication orders received. Order received to do Influenza nasal pharyngeal swab. Titrating Levophed gtt down. Significant other and daughter at bedside most of the day.
--- NOTE | 2019-07-09 18:45 | NUR ---
Report and bedside check done with RN assuming care.
[2019-07-10] VITALS (70 sets, daily range): BP systolic 61–133; BP diastolic 33–73
[2019-07-10 05:23] LABS: HEMATOCRIT 38.1 % (42.0-52.0); HEMOGLOBIN 12.1 gm/dL (14.0-18.0); MCH 33.8 pg (26.0-34.0); MCHC 31.7 g/dL (28.0-37.0); MCV 106.7 fL (80.0-100.0); RBC 3.57 mil/uL (4.50-6.00); RDW 18.6 % (10.5-14.5); WBC 24.7 thou/uL (4.0-11.0)
[2019-07-10 06:06] LABS: ALBUMIN 2.3 g/dL (3.4-5.0); CALCIUM 8.6 mg/dL (8.5-10.1); MAGNESIUM 2.4 mg/dL (1.8-2.4); PHOSPHORUS 3.6 mg/dL (2.5-4.9); POTASSIUM 4.9 mmol/L (3.5-5.1); TOTAL BILIRUBIN 2.4 mg/dL (<0.1-1.0); TOTAL PROTEIN 5.5 g/dL (6.4-8.2)
[2019-07-10 06:13] LABS: CREATININE 2.4 mg/dL (0.7-1.3)
--- NOTE | 2019-07-10 19:02 | HC ---
[facility] [place] [address] CONSULTATION Name: YOU DUFF Keith Room #: 246-P [facility] IN .R.#: [id number] Admission: 07/05/19 Attend Phys: Kori Bee Discharge: Date of : 41 Report #: [id number] THIS REPORT FOR: //name// CC: Reg Bee DATE OF SERVICE: 07/07/2019 INFECTIOUS DISEASE CONSULTATION REASON FOR CONSULTATION: I was asked to evaluate concerning fever in the setting of respiratory failure and congestive heart failure. HISTORY OF PRESENT ILLNESS: The patient was a 74-year-old with history of hypertension, hyperlipidemia, coronary artery disease, who presented on 06/19/2019 with shortness of breath. He did develop PEA and CPR. He was intubated for several days. He then improved. He was found to have atrial fibrillation, moderate to severe aortic stenosis treated for pneumonia initially Zosyn, then switched to Augmentin. He was later transferred to acute rehabilitation. While there, he developed shortness of breath, bilateral pulmonary infiltrates, now intubated and in heart failure. He had temperature of 38 degrees. He is on FiO2 of 50%. He is sedated. A temporary dialysis was placed and he is now to begin acute dialysis. He has had decreased urine output that did not respond to Lasix drip. He has had no seizure episodes. No evidence for further cardiac injury. There was some concern about dietary indiscretion with fluid intake. He has had purulent tracheal secretions. He has an OG tube in place for suction, has evidence of an ileus. Chest x-ray showed bilateral infiltrates concerning for aspiration. His white count was 13,000 with acute onset of thrombocytopenia. His creatinine is 3.7. PAST MEDICAL HISTORY: Severe aortic stenosis, coronary artery disease, hyperlipidemia, aortic aneurysm repair, cervical neck surgery, GI bleed, carotid endarterectomy, cardiac arrest, atrial fibrillation, respiratory failure, hyperlipidemia. FAMILY HISTORY: Noncontributory. SOCIAL HISTORY: Has a significant other. Moderate alcohol intake. Has a daughter who was at the bedside. Past smoker. REVIEW OF SYSTEMS: Ten-point as noted above. PHYSICAL EXAMINATION: VITAL SIGNS: Currently afebrile, heart rate 77, blood pressure 109/67. He was on Lasix drip, was on Levophed for a short period of time this morning and now is off, now on propofol. [address] [address] CONSULTATION Name: YOU DUFF Room #: 246-P [facility] IN .R.#: [id number] Admission: 07/05/19 Attend Phys: Kori Bee Discharge: Date of : 41 Report #: [id number] SKIN: Without rash or decubitus. No palpable adenopathy. 1+ peripheral edema. HEENT: Eyes without scleral icterus. Mouth, orally intubated. No mucositis. NECK: IJ catheter for dialysis in place. LUNGS: Coarse bilaterally, no consolidation. HEART: Regular with 2/6 systolic murmur heard at left sternal border. No gallop appreciated. ABDOMEN: Soft, no appreciable masses or hepatosplenomegaly. GENITOURINARY: External genitalia with indwelling Castro catheter. RECTAL: Not performed. BACK: Nontender. Was able to move all extremities. Right upper extremity PICC without erythema or drainage. LABORATORY STUDIES: Reviewed. Microbiology reviewed. Chest x-ray reviewed. IMPRESSION: 1. A 74-year-old with [id number] systolic heart failure and respiratory failure with suspected healthcare-associated aspiration, gram-negative pneumonia. 2. Acute kidney injury, now requiring dialysis. 3. Paroxysmal atrial fibrillation. 4. Moderately severe to severe non-rheumatic aortic stenosis. 5. Thrombocytopenia due to drug versus DIC. 6. Chronic obstructive pulmonary disease. 7. Coronary artery disease. 8. Peripheral vascular disease. 9. Post-pulseless electrical activity arrest with CPR earlier this admission. RECOMMENDATIONS: We will continue broad antibiotic coverage. We will discontinue Zosyn due to his thrombocytopenia. We will obtain blood cultures and sputum culture. I have discussed with family at the bedside as well as nursing staff regarding treatment approach. Medications will be adjusted for his acute kidney injury and renal failure. Nephrology is managing. Cardiovascular medicine is assisting in his care. Pulmonary medicine is managing his ventilator. <ELECTRONICALLY SIGNED> By: Jose Guadalupe Ahn MD 07/10/19 1902 [id number] [id number] Jose Guadalupe Ahn MD /nt
--- NOTE | 2019-07-10 19:46 | NUR ---
PT REMAINS INTUBATED TODAY. NO VENT WEANING ATTEMPTED DUE TO LATE DIALYSIS TREATMENT TODAY. REMAINS ON PRECEDEX GTT. WEANING LEVOPHED ABLE TO KEEP MAP >65. DIALYSIS THIS EVENING. BP DROPPED WHILE ON DIALYSIS. LEVOPHED TITRATED UP AND SPOKE WITH DR BOWLES AND UPDATED HIM AND UF GOALS ADJUSTED. ABD REMAINS DISTENDED. DUCOLAX SUPPOSITORY GIVEN. TUBE FEEDING STARTED TODAY. ON HOLD MOST OF THE DAY WAITING ON ULTRASOUND OF ABD. PLAN FOR FECAL MANAGEMENT SYSTEM INSERTION FOLLOWING DIALYSIS ORDERED BY GI . PT'S DAUGHTER AND SIGNIFICANT OTHER AT BEDSIDE AND UPATED.
[2019-07-11] VITALS (56 sets, daily range): BP systolic 92–141; BP diastolic 41–76
[2019-07-11 05:17] LABS: BE(vivo) 2.5 mmol/L (-2 to +3); HCO3 25.8 mmol/L (22.0-26.0); PCO2 35.5 mmHg (35.0-45.0); PO2 95.9 mmHg (80.0-100.0); sO2 97.8 % (92.0-98.0)
[2019-07-11 05:53] LABS: PLATELET COUNT 20 thou/uL (150-400)
[2019-07-11 05:54] LABS: HEMATOCRIT 34.3 % (42.0-52.0); MCH 34.4 pg (26.0-34.0); MCHC 32.2 g/dL (28.0-37.0); MCV 106.8 fL (80.0-100.0); RBC 3.21 mil/uL (4.50-6.00); RDW 18.2 % (10.5-14.5); WBC 26.7 thou/uL (4.0-11.0)
[2019-07-11 06:05] LABS: ALBUMIN 2.4 g/dL (3.4-5.0); CALCIUM 8.1 mg/dL (8.5-10.1); CREATININE 1.9 mg/dL (0.7-1.3); POTASSIUM 4.9 mmol/L (3.5-5.1); TOTAL PROTEIN 5.4 g/dL (6.4-8.2)
[2019-07-11 06:58] LABS: ABSOLUTE NEUTROPHILS 25.9 thou/uL (1.4-8.2); ANISOCYTOSIS 2+; PLATELET ESTIMATE MARKEDLY DECREASED
[2019-07-11 06:59] LABS: BURR CELLS 1+; LARGE PLATELETS FEW; MACROCYTES 2+; POIKILOCYTOSIS 2+
--- NOTE | 2019-07-11 07:38 | NUR ---
Assumed pt care 07/10 @ 1900. Pt dialyzing until around 2100 and tolerated well with stable BP on Levophed at 18 mcg. Able to wean Levo down to 10 mcg by this a.m. Tolerating current vent settings with this AMs blood gas noted. Precedex at 1 mcg/kg/min for vent management. MS also given prn for pain with repositioning. Pt able to open eyes and follow simple commands. BUE and torso/pelvis/hips remain very edematous. Extremities elevated on pillows. Flexiseal placed for decompression w/ no return of air or stool. Pt is not progressing towards goals at this time.
[2019-07-11 09:07] LABS: HEP B SURFACE Ab(ANTI-HBS Non Reactive (()); HEPATITIS B SURFACE AG Negative (Negative)
--- NOTE | 2019-07-11 09:20 | NUR ---
ROUNDED AT BEDSIDE WITH DR. WALKER AND INFORME OF DIFFERENCE BETWEEN ORAL AND CORE TEMPERATURE, AND HEART RATE. DR WALKER WILL CHANGE AMIODARONE TO PO FOR KNOW. WILL CONTINUE TO ASSESS.
--- NOTE | 2019-07-11 10:40 | NUR ---
CONTACT DR. BOWLES FOR DR. ARIAS AND WILBUR INSTRUCT NO CONTRAST CAN BE USED FOR IMAGIN AT THIS TIME.
--- NOTE | 2019-07-11 14:31 | NUR ---
PT ADMITED TO THE ICU S/T CODE AT [facility]. PT INTUBATED AND ON VENTILATOR. LEVOPHED MAXED AND VERSED GTT AT 3MG/HR. DR HUSTON TALK TO FAMILY IN THE ICU WAITING ROOM AND THEY INSTRUCT PT IS DNR AND NO OTHER LIFE SAVING MEDICATION THAN WHAT IS ALREADY IN PLACE. INSTRUCTED BY DR HUSTON TO HOLD OFF ON ABX AND CONTINUE LEVOPHED AND VERSED. FAMILY WILL TALK TO PT'S EX AND FINAL DECISION ON WITHDRAWAL OF CARE WILL BE THIS AFTERNOON.
--- NOTE | 2019-07-11 16:47 | NUR ---
PT TO OR WITH OR STAFF.
[2019-07-11 21:39] LABS: HEMATOCRIT 29.5 % (42.0-52.0); HEMOGLOBIN 9.8 gm/dL (14.0-18.0); MCH 35.7 pg (26.0-34.0); MCHC 33.3 g/dL (28.0-37.0); MCV 107.1 fL (80.0-100.0); RBC 2.75 mil/uL (4.50-6.00); RDW 18.5 % (10.5-14.5)
[2019-07-11 21:42] LABS: WBC 3.6 thou/uL (4.0-11.0)
[2019-07-12 05:20] LABS: BE(vivo) -0.6 mmol/L (-2 to +3); HCO3 23.6 mmol/L (22.0-26.0); PCO2 36.9 mmHg (35.0-45.0); PO2 104.2 mmHg (80.0-100.0); pH 7.423 (7.360-7.450); sO2 97.9 % (92.0-98.0)
[2019-07-12 05:35] LABS: HEMOGLOBIN 10.3 gm/dL (14.0-18.0); RBC 2.93 mil/uL (4.50-6.00)
[2019-07-12 05:37] LABS: HEMATOCRIT 31.2 % (42.0-52.0); MCH 35.1 pg (26.0-34.0); MCV 106.4 fL (80.0-100.0); PLATELET COUNT 69 thou/uL (150-400); RDW 18.7 % (10.5-14.5)
[2019-07-12 05:41] LABS: WBC 14.1 thou/uL (4.0-11.0)
[2019-07-12 05:44] LABS: ALBUMIN 2.3 g/dL (3.4-5.0); CALCIUM 7.5 mg/dL (8.5-10.1); PHOSPHORUS 4.1 mg/dL (2.5-4.9); POTASSIUM 5.4 mmol/L (3.5-5.1); TOTAL BILIRUBIN 2.2 mg/dL (<0.1-1.0); TOTAL PROTEIN 4.9 g/dL (6.4-8.2)
[2019-07-12 07:30] VITALS: BP 75/54
--- NOTE | 2019-07-12 07:37 | NUR ---
CHART CHECK. REPORT GIVEN TO POPEYE KO. PT NOT PROGRESING TOWARDS GOALS DUE TO MULTIPLE COMORBIDITIES.
[2019-07-12 08:49] LABS: ABSOLUTE NEUTROPHILS 10.7 thou/uL (1.4-8.2); ANISOCYTOSIS 1+; METAMYELOCYTES 8 %; MYELOCYTES 2 %; PLATELET ESTIMATE DECREASED
[2019-07-12 12:17] VITALS: BP 89/49
--- NOTE | 2019-07-12 17:17 | NUR ---
PT WILL OPEN EYES TO NAME, SIG OTHER AND DAUGHTER AT BEDSIDE THROUGHOUT DAY. DISCUSSED WITH AND THIS NURSE POC AND PT WISHES. TOLERATED HD WITH LEVOPHED AND VASOPRESSIN-SEE MED TITRATION INTERVENTION. NO URINE OUTPUT ON THIS SHIFT. ALL FAMILY QUESTIONS ANSWERED. WILL MONITOR CLOSELY.
[2019-07-12 22:06] LABS: ADENOVIRUS Negative (Negative); INFLUENZA A Negative (Negative); INFLUENZA B Negative (Negative); METAPNEUMOVIRUS Negative (Negative); PARAINFLUENZA 1 Negative (Negative); PARAINFLUENZA 2 Negative (Negative); PARAINFLUENZA 3 Negative (Negative); RHINOVIRUS Negative (Negative); RSV A Negative (Negative); RSV B Negative (Negative)
[2019-07-13 06:06] LABS: ALBUMIN 2.9 g/dL (3.4-5.0); CALCIUM 7.8 mg/dL (8.5-10.1); CREATININE 2.3 mg/dL (0.7-1.3); PHOSPHORUS 4.4 mg/dL (2.5-4.9); POTASSIUM 4.9 mmol/L (3.5-5.1)
--- NOTE | 2019-07-13 07:15 | NUR ---
WEANING TRIAL ON 2MG VERSED DOWN. PT FAILED AFTER ABOUT 2 MINUTES DUE TO LOW TVS.
--- NOTE | 2019-07-13 10:00 | NUR ---
DR. YBARRA HERE. VERSED STOPPED TEMPORARILY. PT WOKE UP OPENED EYES TO COMMAND BUT NOTHING CONSISTANTLY. RESEDATED DUE TO HEAD FLAILING AND PT BITING ON TUBE.
--- NOTE | 2019-07-13 11:10 | NUR ---
DR. BOWLES CALLED BACK TO TALK TO FAMILY. UPDATE GIVEN. NO HD TODAY. MD AWARE PT NO MAKING URINE. TITRATING DOWN ON PRESSORS.
--- NOTE | 2019-07-13 12:07 | NUR ---
OSTOMY CARE NOTE CALLED BY NUT PACKER TO SEE PT DUE TO NEW ILEOSTOMY, PT ON VENT, DAUGHTER AT BS, POUCH INTACT, NO STOOL YET, PREVENA VAC IN PLACE W/ GOOD SEAL. SUPPLIES PLACED AT BS, WILL FOLLOW PRN
--- NOTE | 2019-07-13 15:00 | NUR ---
DR. CARTER HERE. UPDATE GIVEN. NO NEW ORDERS.
[2019-07-13 15:24] LABS: HEMATOCRIT 29.5 % (42.0-52.0); HEMOGLOBIN 9.4 gm/dL (14.0-18.0); MCH 34.8 pg (26.0-34.0); MCV 108.8 fL (80.0-100.0); RBC 2.71 mil/uL (4.50-6.00); RDW 19.7 % (10.5-14.5); WBC 11.2 thou/uL (4.0-11.0)
[2019-07-13 15:46] LABS: LARGE PLATELETS RARE; PLATELET COUNT 27 thou/uL (150-400)
[2019-07-13 15:47] LABS: ABSOLUTE NEUTROPHILS 9.7 thou/uL (1.4-8.2); ANISOCYTOSIS 1+; BURR CELLS 1+; MACROCYTES 1+
--- NOTE | 2019-07-13 16:24 | NUR ---
CALLED DR. HALL, RE PLT 27. NO NEW ORDERS.
[2019-07-13 20:23] VITALS: BP 113/58
[2019-07-14 05:02] LABS: BE(vivo) 0.8 mmol/L (-2 to +3); HCO3 25.1 mmol/L (22.0-26.0); PCO2 39.2 mmHg (35.0-45.0); PO2 132.8 mmHg (80.0-100.0); pH 7.425 (7.360-7.450); sO2 98.7 % (92.0-98.0)
[2019-07-14 05:11] LABS: RBC 2.64 mil/uL (4.50-6.00); WBC 10.5 thou/uL (4.0-11.0)
[2019-07-14 05:12] LABS: HEMATOCRIT 27.9 % (42.0-52.0); HEMOGLOBIN 9.4 gm/dL (14.0-18.0); MCH 35.5 pg (26.0-34.0); MCHC 33.6 g/dL (28.0-37.0); MCV 105.6 fL (80.0-100.0); RDW 18.4 % (10.5-14.5)
[2019-07-14 05:26] LABS: ALBUMIN 2.6 g/dL (3.4-5.0); CALCIUM 7.6 mg/dL (8.5-10.1); CREATININE 2.8 mg/dL (0.7-1.3); POTASSIUM 4.5 mmol/L (3.5-5.1); TOTAL BILIRUBIN 3.3 mg/dL (<0.1-1.0)
--- NOTE | 2019-07-14 05:51 | NUR ---
Patient alert on light sedation. Responds to painful stimuli. Afib on athletic monitor. Rt radial art line intact. Systolic blood pressure remains below 120, map above 60. On ventilator 30% FIO2. OG minimal output. Ostomy serousanguinous output due to new placement. Rectal tube in place for decompression. Levophed remained unchanged throughout the night, currently at 12mcg/min. Plan for dialysis this morning. Blood sugar monitored and WNL. Patient not deteriorating but not progressing towards goal. Will continue to monitor.
[2019-07-14 07:57] LABS: BE(vivo) -1.4 mmol/L (-2 to +3); HCO3 23.3 mmol/L (22.0-26.0); PCO2 39.2 mmHg (35.0-45.0); PO2 128.3 mmHg (80.0-100.0); pH 7.392 (7.360-7.450); sO2 98.5 % (92.0-98.0)
[2019-07-14 08:06] VITALS: BP 126/92
--- NOTE | 2019-07-14 09:04 | NUR ---
0730 report received, see assessment. spoke to dr sage regarding poc and prognosis, labs and meds. spoke with s/o omega on phone and the daughter at bedside. dr abrams at the bedside discussed at length prognosis and comfort care. she will discuss with the other family members. holding off on dialysis.
[2019-07-14 12:00] VITALS: BP 118/76
[2019-07-14 16:01] VITALS: BP 125/75
[2019-07-15] VITALS (7 sets, daily range): BP systolic 88–123; BP diastolic 31–65
[2019-07-15 05:50] LABS: CALCIUM 8.1 mg/dL (8.5-10.1); PHOSPHORUS 3.6 mg/dL (2.5-4.9); POTASSIUM 3.8 mmol/L (3.5-5.1)
--- NOTE | 2019-07-15 06:48 | NUR ---
PATIENT DROWSY THROUGHOUT THE NIGHT, WOKE UP AT 0600 AND SPONTANEOUSLY OPENED EYES. NOD HEAD WHEN NAME IS CALLED AND SQUEEZED LEFT HAND. ON VENTILATOR 30% FIO2. RIGHT RADIAL ART LINE IN PLACE. RECTAL TUBE FOR DECOMPRESSION. ILLEOSTOMY WITH LITTLE OUTPUT. JOYCELYN DRAINS OUTPUT REMAINS THE SAME 100ML OUTPUT. LEVOFED WEANED TO 2MCG. AMIODARONE GTT INFUSING O.5MG. SPOKE WITH FAMILY OVER THE PHONE, PLAN TO WITHDRAW CARE AFTER OUT OF STATE FAMILY ARRIVES. SPOKE WITH DR. BOWLES AT THE BEDSIDE, UPDATED ON NIGHT. NO SIGN OF ACUTE DISTRESS NOTED AT THIS TIME. WILL CONTINUE TO MONITOR.
--- NOTE | 2019-07-15 10:56 | NUR ---
PT FAMILY AT BEDSIDE. FAMILY STATES THEY ARE WAITING FOR PATIENT'S SON TO ARRIVE TO HOSPITAL AND MAY DETERMINE TO WITHDRAW CARE. ART LINE, PICC, FMS, RECTAL TEMP PROBE, STERLING, & JOYCELYN DRAINS-ALL PATENT AND SECURED IN PLACE. PATIENT TOLERATES TURNS WELL. ILEOSTOMY IN PLACE WITHOUT DRAINAGE. NO S/S OF BLEEDING. PATIENT TOLERATES ORAL CARE BUT UNABLE TO TOLERATE HOB INCREASED >30 DEGREES AT THIS TIME. FAMILY MEMBERS AT BEDSIDE. FALL PRECAUTIONS IN PLACE. RESTRAINTS NOT REQUIRED, SEDATION MEDICATION NOT NEEDED AT THIS TIME. VENT SETTING IN PLACE AND MAINTAINED BY RT, ET & OG TUBE IN PLACE & SECURED. PT NOT PROGRESSING TOWARDS GOALS.
--- NOTE | 2019-07-15 19:15 | NUR ---
PATIENT EXTOBATED AT 0713 PER FAMILY REQUEST AND ORDER TO WITHDRAW CARE.
--- NOTE | 2019-07-15 22:51 | NUR ---
PATIENT EXTOBATED AT 1913 PER FAMILY REQUEST AND ORDER TO WITHDRAW CARE. MTN UPDATED ON PLAN. FAMILY PRESENT AT THE BEDSIDE. PATIENT A-FIB ON BUTT TRIMMER 100 BEATS/MIN. MAP REMAINS ABOVE 55. O2 SAT MONITORED. PATIENT TURNED Q2H AND FREQUENT ORAL CARE. J/P DRAINS MONITORED. NO SIGN OF DISTRESS NOTED. CONTINUE CONFORT MEASURES.
--- NOTE | 2019-07-16 07:57 | NUR ---
PATIENT MADE COMFORT CARE BY FAMILY. FAMILY PRESENT AT THE BEDSIDE THROUGHT THE NIGHT AND PATIENT AT 0607. POST-MORTEM CARE COMPLETED. JOYCELYN STERLING DRAIN X2, RECTAL TUBE REMOVED. BATH COMPLETED. BELONGINGS TAKEN WITH FAMILY. DENTURES PRESENT AT THE BEDSIDE. 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 REPORT GIVEN TO ONCOMING SHIFT.
--- NOTE | 2019-07-16 10:06 | PATH ---
[facility] [place] [address] PATHOLOGY RPT PROCEDURE Name: ALEX DUFF Room #: 246-P [facility] IN M.R.#: [id number] Admission: 07/05/19 Date of : 41 Discharge: 07/16/19 Report #: [id number] Path Case #: [id number] [facility] Accession Number: [id number] . 01 Material submitted: . ileum - RIGHT COLON TERMINAL ILEUM. Modifiers: TERMINAL . 01 Clinical history: . Free air abdomen Perforated bowel . 02 Diagnosis: Terminal ileum and right colon, right hemicolectomy: - Transmural ischemic necrosis associated with congested and perforated bowel wall x 2. - Negative for malignancy. - Margins of resection viable. - Appendix showing complete fibrous obliteration. . Omentum, right hemicolectomy: - 15.0 cm of omentum showing multifocal fat necrosis. - Negative for malignancy. (IUV/db; 07/14/2019) LBQ 07/14/2019 1537 Local . 02 Electronically signed: . Ethel Jha MD, Pathologist NPI- [id number] . 01 Gross description: . The specimen is received in formalin, labeled "Alex Duff, right colon terminal ileum" and consists of a right hemicolectomy specimen with terminal ileum (5.8 cm in length and 2.0 cm in diameter) ascending colon/cecum (38.0 cm in length and ranging from 5.0-10.0 cm in diameter), appendix (3.9 cm in length and 0.5 cm in diameter), and mesocolic fat up to 4.2 cm. There is a small amount of attached omentum measuring 15.0 x 10.8 cm. The specimen is markedly dilated at the cecum/proximal ascending colon with 2 transmural defects (inked orange) measuring 1.5 x 1.0 cm and 1.5 x 1.4 cm. The serosa is hemorrhagic slater-green. Opening reveals a lumen packed with brown fecal material. The mucosa is pink-slater to mckeon-brown with necrosis surrounding the transmural defects. No polyps are identified. The omentum reveals no gross lesions. The appendix shows a pinpoint lumen with possible fibrous obliteration of the tip. 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 A1: Proximal margin A2: [place] [address] PATHOLOGY RPT PROCEDURE Name: ALEX DUFF Room #: 246-P [facility] IN M.R.#: [id number] Admission: 07/05/19 Date of : 41 Discharge: 07/16/19 Report #: [id number] Path Case #: [id number] A3: Transmural defects A4: Additional cecal mucosa A5: Omentum A6: Appendix (SDY; 07/13/2019) SYU/SYU 07/13/2019 1459 Local . 02 Pathologist provided ICD-10: K55.069, K65.4 . 02 CPT . 012811, [id number] Specimen Comment: A courtesy copy of this report has been sent to [phone] Specimen Comment: Report sent to Performed at: 01 [facility] [address], [place] [id number] MD Nino Edmonds MD Phone: [phone] Performed at: [address] [facility] [id number] MD Ethel Jha MD Phone: [phone]
== END 2019-07-16 06:07 | DRG 853 ==
LOC: 2N 15:12 → ICU 07-07 06:24
PROVIDERS: Hospitalist; Internal Medicine; Internal Medicine Gastroenterology; Internal Medicine Nephrology; Internal Medicine Pulmonary Disease; Nurse Practitioner Family; Pediatrics; Surgery; ADMIT Hospitalist
PROC: 5A1955Z Respiratory Ventilation, Greater than 96 Consecutive Hours (ICD-10-PCS; principal; 2019-07-07)
PROC: B5191ZA Fluoroscopy of Inferior Vena Cava using Low Osmolar Contrast, Guidance (ICD-10-PCS; 2019-07-07)
PROC: 06H033Z Insertion of Infusion Device into Inferior Vena Cava, Percutaneous Approach (ICD-10-PCS; 2019-07-07)
PROC: 0BD38ZX Extraction of Right Main Bronchus, Via Natural or Artificial Opening Endoscopic, Diagnostic (ICD-10-PCS; 2019-07-07)
PROC: 0BD78ZX Extraction of Left Main Bronchus, Via Natural or Artificial Opening Endoscopic, Diagnostic (ICD-10-PCS; 2019-07-07)
PROC: B549ZZA Ultrasonography of Inferior Vena Cava, Guidance (ICD-10-PCS; 2019-07-07)
PROC: 0BH17EZ Insertion of Endotracheal Airway into Trachea, Via Natural or Artificial Opening (ICD-10-PCS; 2019-07-07)
PROC: 5A1D70Z Performance of Urinary Filtration, Intermittent, Less than 6 Hours Per Day (ICD-10-PCS; 2019-07-10)
PROC: 0DTF0ZZ Resection of Right Large Intestine, Open Approach (ICD-10-PCS; 2019-07-11)
PROC: 0D1B0Z4 Bypass Ileum to Cutaneous, Open Approach (ICD-10-PCS; 2019-07-11)
PROC: 30233R1 Transfusion of Nonautologous Platelets into Peripheral Vein, Percutaneous Approach (ICD-10-PCS; 2019-07-11)
PROC: 5A1D70Z Performance of Urinary Filtration, Intermittent, Less than 6 Hours Per Day (ICD-10-PCS; 2019-07-14)
DX: A41.9 Sepsis, unspecified organism (principal); J96.91 Respiratory failure, unspecified with hypoxia; J15.6 Pneumonia due to other Gram-negative bacteria; I50.23 Acute on chronic systolic (congestive) heart failure; J69.0 Pneumonitis due to inhalation of food and vomit; R65.21 Severe sepsis with septic shock; G93.41 Metabolic encephalopathy; K35.32 Acute appendicitis with perforation, localized peritonitis, and gangrene, without abscess; N17.9 Acute kidney failure, unspecified; I13.0 Hypertensive heart and chronic kidney disease with heart failure and stage 1 through stage 4 chronic kidney disease, or unspecified chronic kidney disease; K56.7 Ileus, unspecified; I46.9 Cardiac arrest, cause unspecified; E78.5 Hyperlipidemia, unspecified; I25.10 Atherosclerotic heart disease of native coronary artery without angina pectoris; I35.0 Nonrheumatic aortic (valve) stenosis; I71.9 Aortic aneurysm of unspecified site, without rupture; I48.0 Paroxysmal atrial fibrillation; D69.6 Thrombocytopenia, unspecified; J44.9 Chronic obstructive pulmonary disease, unspecified; N18.9 Chronic kidney disease, unspecified; I73.9 Peripheral vascular disease, unspecified; E78.00 Pure hypercholesterolemia, unspecified; Z96.659 Presence of unspecified artificial knee joint; K59.00 Constipation, unspecified; G47.00 Insomnia, unspecified; N40.0 Benign prostatic hyperplasia without lower urinary tract symptoms; R13.10 Dysphagia, unspecified; I71.4 Abdominal aortic aneurysm, without rupture; M48.00 Spinal stenosis, site unspecified; E80.4 Gilbert syndrome; R74.0 Nonspecific elevation of levels of transaminase and lactic acid dehydrogenase [LDH]; D53.9 Nutritional anemia, unspecified; Z87.442 Personal history of urinary calculi; Z87.891 Personal history of nicotine dependence; Z82.49 Family history of ischemic heart disease and other diseases of the circulatory system; Z95.828 Presence of other vascular implants and grafts; Z88.5 Allergy status to narcotic agent; Z79.01 Long term (current) use of anticoagulants; I25.2 Old myocardial infarction; Z95.5 Presence of coronary angioplasty implant and graft; Z79.899 Other long term (current) drug therapy; Z99.2 Dependence on renal dialysis
CPT/HCPCS: 10078; 10081; 32100; 50101; 50386; 56525; 56526; 56529; 57092; 57242; 62110; 62900